=== PATIENT | female | born 1955 | race Caucasian/White ===

== ENCOUNTER 2021-02-02 18:10 | Inpatient (IN) | payer MEDICARE, OTHER ==
[2021-02-02] MEDS ORDERED: SODIUM CHLORIDE 0.9% 500 ML 500 ML IV ONE ×3 (18:52→21:52)
[2021-02-02] MEDS ORDERED: HYDROmorphone 0.5 MG/0.5 ML SYRINGE IVP STA (18:52)
--- NOTE | 2021-02-02 18:53 | ED ---
General Adult HPI - General Chief complaint: Skin/Abscess/Foreign Body Stated complaint: blistering rashes Time Seen by Provider: 02/02/21 18:38 Source: patient, EMS, RN notes reviewed, old records reviewed Mode of arrival: EMS Limitations: no limitations - History of Present Illness Initial comments: 65-year-old female presenting with multiple complaints, rash, hand and feet swelling, nausea vomiting and abdominal pain. Symptoms have been present for approximately one week. Patient recently moved to this area. She states that about one week ago she noticed red sensation of her hands and ankles that was similar to sunburn this has worsened, began to blister. She denies fever. She has had some chills. Additionally she's had abdominal distention and vomiting for approximately one week. - Related Data Allergies Allergy/AdvReac Type Severity Reaction Status Date / Time Penicillins Allergy Unknown Verified 02/02/21 18:18 Childhood Review of Systems ROS Statement: Those systems with pertinent positive or pertinent negative responses have been documented in the HPI. ROS Other: All systems not noted in ROS Statement are negative. Past Medical History Past Medical History: No Reported History, Myocardial Infarction ([place]) Additional Past Medical History / Comment(s): heart murmur History of Any Multi-Drug Resistant Organisms: None Reported Past Surgical History: Appendectomy Past Psychological History: Anxiety, Depression Smoking Status: Current every day smoker Past Alcohol Use History: Occasional Past Drug Use History: None Reported General Exam Limitations: no limitations General appearance: alert, in distress Head exam: Present: atraumatic, normocephalic Eye exam: Present: normal appearance, PERRL ENT exam: Present: mucous membranes dry Neck exam: Present: normal inspection. Absent: tenderness, meningismus Respiratory exam: Present: normal lung sounds bilaterally. Absent: respiratory distress Cardiovascular Exam: Present: normal rhythm, tachycardia GI/Abdominal exam: Present: distended, tenderness Extremities exam: Present: normal capillary refill Neurological exam: Present: alert. Absent: motor sensory deficit Psychiatric exam: Present: anxious Skin exam: Present: rash (Excoriation under her bilateral breasts, shows an erythematous blistering rash to her hands and both ankles. There appears to be secondary infection with some erythema and purulent drainage.), erythema Course Vital Signs 02/02/21 18:12 Temperature 98.9 F Pulse Rate 116 H Respiratory 18 Rate Blood Pressure 108/87 O2 Sat by Pulse 98 Oximetry EKG Findings - EKG Comments: EKG Findings:: Sinus tachycardia, left atrial enlargement, T-wave inversion in the precordial leads, no ST segment elevation, rate of 109, GA interval 152, QRS duration 84, QTC 484, no old for comparison. Medical Decision Making - Medical Decision Making 65-year-old female presenting with multiple issues, skin rash, erythematous blistering rash with large bulla over her ankles with secondary infection is also present in her hands. Additionally she has complained of abdominal pain nausea vomiting with abdominal distention and pain. CT is performed which shows a choledocholithiasis as well as a cholecystitis. Ultrasound has been ordered and results are pending. She has a mild transaminitis and an bilirubin of 1.4. I did discuss case both with the admitting physician Dr. Horton and with Dr. Grey covering for general surgery. Additionally gastroenterology will be placed on consult. She will be placed on IV antibiotics to cover both abdominal and skin soft tissue infection. - Lab Data Result diagrams: 02/02/21 18:50 02/02/21 18:50 Lab Results 02/02/21 02/02/21 02/02/21 Range/Units 18:50 18:50 18:50 WBC 7.4 (3.8-10.6) k/uL RBC 3.28 L (3.80-5.40) m/uL Hgb 13.3 (11.4-16.0) gm/dL Hct 38.8 (34.0-46.0) % MCV 118.2 H (80.0-100.0) fL MCH 40.7 H (25.0-35.0) pg MCHC 34.4 (31.0-37.0) g/dL RDW 13.4 (11.5-15.5) % Plt Count 187 (150-450) k/uL MPV 7.4 Neutrophils % 60 % Lymphocytes % 25 % Monocytes % 12 % Eosinophils % 1 % Basophils % 0 % Neutrophils # 4.4 (1.3-7.7) k/uL Lymphocytes # 1.8 (1.0-4.8) k/uL Monocytes # 0.9 (0-1.0) k/uL Eosinophils # 0.1 (0-0.7) k/uL Basophils # 0.0 (0-0.2) k/uL Manual Slide Review Performed Macrocytosis Marked A PT 11.1 (9.0-12.0) sec INR 1.0 (<1.2) APTT 22.2 (22.0-30.0) sec Sodium 129 L (137-145) mmol/L Potassium 3.7 (3.5-5.1) mmol/L Chloride 95 L (98-107) mmol/L Carbon Dioxide 21 L (22-30) mmol/L Anion Gap 13 mmol/L BUN 9 (7-17) mg/dL Creatinine 0.52 (0.52-1.04) mg/dL Est GFR (CKD-EPI)AfAm >90 (>60 ml/min/1.73 sqM) Est GFR (CKD-EPI)NonAf >90 (>60 ml/min/1.73 sqM) Glucose 95 (74-99) mg/dL Calcium 8.1 L (8.4-10.2) mg/dL Phosphorus 2.8 (2.5-4.5) mg/dL Magnesium 1.9 (1.6-2.3) mg/dL Total Bilirubin 1.4 H (0.2-1.3) mg/dL AST 164 H (14-36) U/L ALT 59 H (4-34) U/L Alkaline Phosphatase 68 (38-126) U/L Troponin I (0.000-0.034) ng/mL Total Protein 6.2 L (6.3-8.2) g/dL Albumin 3.2 L (3.5-5.0) g/dL 02/02/21 Range/Units 18:50 WBC (3.8-10.6) k/uL RBC (3.80-5.40) m/uL Hgb (11.4-16.0) gm/dL Hct (34.0-46.0) % MCV (80.0-100.0) fL MCH (25.0-35.0) pg MCHC (31.0-37.0) g/dL RDW (11.5-15.5) % Plt Count (150-450) k/uL MPV Neutrophils % % Lymphocytes % % Monocytes % % Eosinophils % % Basophils % % Neutrophils # (1.3-7.7) k/uL Lymphocytes # (1.0-4.8) k/uL Monocytes # (0-1.0) k/uL Eosinophils # (0-0.7) k/uL Basophils # (0-0.2) k/uL Manual Slide Review Macrocytosis PT (9.0-12.0) sec INR (<1.2) APTT (22.0-30.0) sec Sodium (137-145) mmol/L Potassium (3.5-5.1) mmol/L Chloride (98-107) mmol/L Carbon Dioxide (22-30) mmol/L Anion Gap mmol/L BUN (7-17) mg/dL Creatinine (0.52-1.04) mg/dL Est GFR (CKD-EPI)AfAm (>60 ml/min/1.73 sqM) Est GFR (CKD-EPI)NonAf (>60 ml/min/1.73 sqM) Glucose (74-99) mg/dL Calcium (8.4-10.2) mg/dL Phosphorus (2.5-4.5) mg/dL Magnesium (1.6-2.3) mg/dL Total Bilirubin (0.2-1.3) mg/dL AST (14-36) U/L ALT (4-34) U/L Alkaline Phosphatase (38-126) U/L Troponin I <0.012 (0.000-0.034) ng/mL Total Protein (6.3-8.2) g/dL Albumin (3.5-5.0) g/dL Disposition Clinical Impression: Serous bulla of skin, Choledocholithiasis, Cholecystitis Disposition: ADMITTED IP TO THIS [facility] Condition: Stable Is patient prescribed a controlled substance at d/c from ED?: No Referrals: None,Stated [Primary Care Provider] - 1-2 days Decision to Admit Reason: Admit from EC Decision Date: 02/02/21 Decision Time: 20:38
[2021-02-02] MEDS ORDERED: ONDANSETRON 4 MG/2 ML VIAL IVP STA (18:55)
[2021-02-02 19:06] LABS: Basophils % (A) 0 %; Eosinophils # (A) 0.1 k/uL (0-0.7); Eosinophils % (A) 1 %; HCT 38.8 % (34.0-46.0); HGB 13.3 gm/dL (11.4-16.0); Lymphocytes # (A) 1.8 k/uL (1.0-4.8); Lymphocytes % (A) 25 %; MCH 40.7 pg (25.0-35.0); MCHC 34.4 g/dL (31.0-37.0); MCV 118.2 fL (80.0-100.0); Macrocytosis Marked; Mean Platelet Volume 7.4; Monocytes # (A) 0.9 k/uL (0-1.0); Monocytes % (A) 12 %; Neutrophils # (A) 4.4 k/uL (1.3-7.7); Neutrophils % (A) 60 %; Platelet Count 187 k/uL (150-450); RBC 3.28 m/uL (3.80-5.40); RDW 13.4 % (11.5-15.5); WBC 7.4 k/uL (3.8-10.6)
[2021-02-02 19:07] LABS: ALT 59 U/L (4-34); AST 164 U/L (14-36); African American GFR (CKD) >90 (>60 ml/min/1.73 sqM); Albumin 3.2 g/dL (3.5-5.0); Alkaline Phosphatase 68 U/L (38-126); Anion Gap 13 mmol/L; Blood Urea Nitrogen 9 mg/dL (7-17); Calcium 8.1 mg/dL (8.4-10.2); Carbon Dioxide 21 mmol/L (22-30); Chloride 95 mmol/L (98-107); Glucose 95 mg/dL (74-99); Magnesium 1.9 mg/dL (1.6-2.3); Non-African American GFR(CKD) >90 (>60 ml/min/1.73 sqM); Phosphorus 2.8 mg/dL (2.5-4.5); Potassium 3.7 mmol/L (3.5-5.1); Sodium 129 mmol/L (137-145); Total Bilirubin 1.4 mg/dL (0.2-1.3); Total Protein 6.2 g/dL (6.3-8.2)
[2021-02-02 19:09] LABS: Partial Thromboplastin Time 22.2 sec (22.0-30.0); Prothrombin Time 11.1 sec (9.0-12.0)
--- NOTE | 2021-02-02 20:09 | CT ---
EXAMINATION TYPE: CT abdomen pelvis wo con DATE OF EXAM: 02/02/2021 COMPARISON: HISTORY: Abdominal pain, diarrhea, and nausea. CT DLP: 477.7 mGycm Automated exposure control for dose reduction was used. TECHNIQUE: Helical acquisition of images from the lung bases through the pelvis. FINDINGS: Metallic density present at the level of the mitral annulus, there are coronary artery calc ifications. Lack of contrast may compromise sensitivity. Surgical lit present along the midline i nferior to the umbilicus at the level of the abdominal wall LUNG BASES: No significant abnormality is appreciated. AORTA: No significant abnormality is appreciated. LIVER/GB: Left lobe is somewhat atrophic, low-attenuation is greater in the left lobe than in the rig ht lobe but findings are likely indicative of underlying hepatic steatosis. At the level of the dista l common bile duct there is a density present, sagittal image #68 measuring approximately 9 mm x 15 m m on coronal image #40. Gallstone is also noted in the gallbladder PANCREAS: No significant abnormality is seen. SPLEEN: No significant abnormality is seen. ADRENALS: No significant abnormality is seen. KIDNEYS: No significant abnormality is seen. REPRODUCTIVE ORGANS: No significant abnormality is seen. URINARY BLADDER: No significant abnormality is seen. BOWEL: No significant abnormality is seen. FREE AIR: No Free Air is visible. ASCITES: None visible. PELVIC ADENOPATHY: None visualized. RETROPERITONEAL ADENOPATHY: No Retroperitoneal Adenopathy visible. OSSEOUS STRUCTURES: There is a marked scoliosis. Degenerative disc changes and facet arthropathy is p resent. IMPRESSION: CHOLEDOCHOLITHIASIS, CHOLECYSTITIS AND ADDITIONAL FINDINGS ABOVE.
--- NOTE | 2021-02-02 20:10 | XR ---
EXAMINATION TYPE: XR chest 2V DATE OF EXAM: 02/02/2021 COMPARISON: NONE HISTORY: Chest pain TECHNIQUE: Frontal and lateral views of the chest are obtained. FINDINGS: There is no focal air space opacity, pleural effusion, or pneumothorax seen. The cardiac silhouette size is within normal limits. There are overlying cardiac leads. Aorta is dense and possib ly ectatic, patient is rotated, but right hemidiaphragm is elevated. The osseous structures are inta ct. IMPRESSION: No acute cardiopulmonary process. Additional findings above.
[2021-02-02] MEDS ORDERED: LORazepam 2 MG/ML INJ IV STA (20:14)
[2021-02-02] MEDS ORDERED: cefTRIAXone IN SWFI 1,000 MG/10 ML SYRINGE IVP STA (20:29)
[2021-02-02] MEDS ORDERED: metroNIDAZOLE-NS PMX 500 MG in SALINE 1 100ML.BAG IVPB STA (20:29)
[2021-02-02] MEDS ORDERED: NALOXONE 0.4 MG/ML 1 ML VIAL IV PRN (20:30)
[2021-02-02] MEDS ORDERED: VANCOMYCIN IV PER PHARMACY 1 EACH MISC MISCELLANE PRN (20:36)
[2021-02-02] MEDS: cefTRIAXone IN SWFI 1,000 MG/10 ML SYRINGE IVP SCH (21:01)
--- NOTE | 2021-02-02 21:03 | US ---
EXAMINATION TYPE: US gallbladder DATE OF EXAM: 02/02/2021 COMPARISON: CLINICAL HISTORY: ab pain. Generalized pain. EXAM MEASUREMENTS: Liver Length: 14.8 cm Gallbladder Wall: 0.3 cm Right Kidney: 10.6 x 4.9 x 5.9 cm Extremely limited exam due to overlying bowel gas. Patient also had rash on abdomen which limited scanning areas due to pain from rash Pancreas: Obscured by bowel gas Liver: Limited due to bowel gas. Scanned through limited windows between ribs. Parts of liver appe ars heterogenous and coarse with difficulty in penetration. Gallbladder: Echogenic focus seen- 1.1 cm Evidence for sonographic Pretty's sign: neg CBD: Obscured by overlying bowel gas Right Kidney: limited visualization, portions seen appear wnl IMPRESSION: There is echogenic focus at the gallbladder neck suspicious for a gallstone. No significant gallbladd er wall thickening. No dilated ducts. Common bile duct not well seen. Intrahepatic bile ducts are not dilated. Exam limited by bowel gas.
[2021-02-02] MEDS ORDERED: VANCOMYCIN 1,000 MG in SODIUM CHLORIDE 0.9% 250 ML IVPB ONE (21:30)
[2021-02-02] MEDS: HYDROmorphone 0.5 MG/0.5 ML SYRINGE IVP PRN (21:55)
[2021-02-03] MEDS: 0.9% NACL WITH KCL 20 MEQ/L 1,000 ML with MVI, ADULT NO.4 WITH VIT K 10 ML, THIAMINE 10... IV SCH ×8 (01:23→21:20)
[2021-02-03] MEDS: HYDROmorphone 0.5 MG/0.5 ML SYRINGE IVP PRN ×5 (01:36→18:23)
[2021-02-03] MEDS: ONDANSETRON 4 MG/2 ML VIAL IVP PRN ×2 (04:40→10:08)
[2021-02-03 04:53] LABS: HCT 40.1 % (34.0-46.0); HGB 12.9 gm/dL (11.4-16.0); MCH 39.1 pg (25.0-35.0); MCHC 32.2 g/dL (31.0-37.0); MCV 121.4 fL (80.0-100.0); Macrocytosis Marked; Mean Platelet Volume 7.8; Platelet Count 149 k/uL (150-450); RBC 3.31 m/uL (3.80-5.40); RDW 13.5 % (11.5-15.5)
[2021-02-03 05:01] LABS: INR 1.1 (<1.2); Prothrombin Time 11.3 sec (9.0-12.0)
[2021-02-03 05:38] LABS: ALT 55 U/L (4-34); AST 154 U/L (14-36); African American GFR (CKD) >90 (>60 ml/min/1.73 sqM); Albumin 2.9 g/dL (3.5-5.0); Alkaline Phosphatase 44 U/L (38-126); Amylase 51 U/L (30-110); Anion Gap 6 mmol/L; Blood Urea Nitrogen 11 mg/dL (7-17); Calcium 7.5 mg/dL (8.4-10.2); Carbon Dioxide 22 mmol/L (22-30); Chloride 101 mmol/L (98-107); Glucose 80 mg/dL (74-99); Lipase 133 U/L (23-300); Non-African American GFR(CKD) >90 (>60 ml/min/1.73 sqM); Potassium 4.6 mmol/L (3.5-5.1); Sodium 129 mmol/L (137-145); Total Bilirubin 1.6 mg/dL (0.2-1.3)
[2021-02-03 08:02] LABS: Band Neutrophils % 4 %; Lymphocytes # (M) 1.68 k/uL (1.0-4.8); Monocytes # (M) 0.29 k/uL (0-1.0); Neutrophils % (M) 70 %; Nucleated Red Blood Cells 4 /100 WBC (0-0); Total Cells Counted 200; WBC 7.3 k/uL (3.8-10.6)
[2021-02-03 08:03] LABS: Anisocytosis (M) Present; Polychromasia Present; Target Cells Present
[2021-02-03 10:09] LABS: Amorphous Sediment,Urine Occasional /hpf; Appearance,Urine Cloudy (Clear); Bacteria,Urine Rare /hpf; Bilirubin,Urine 1+ (Negative); Blood,Urine Moderate (Negative); Color,Urine Dark Brown; Glucose,Urine (UA) Negative (Negative); Hyaline Casts,Urine 3 /lpf (0-2); Ketones,Urine Trace (Negative); Leukocyte Esterase,Urine Large (Negative); Mucus,Urine Rare /hpf; Nitrite,Urine Negative (Negative); Protein,Urine 1+ (Negative); RBC,Urine 30 /hpf (0-5); Specific Gravity,Urine 1.023 (1.001-1.035); Squamous Epithelial Cell,Urine 5 /hpf (0-4); WBC,Urine 62 /hpf (0-5)
--- NOTE | 2021-02-03 12:34 | P.GSCN ---
History of Present Illness Consult date: 02/03/21 History of present illness: The patient presented to the ED with multiple complaints. She hasn't felt well the last 1-2 weeks. Has a riash develop on her hands and ankles, the rash on her ankles began draining yesterday. Also complaining of nausea and "unable to keep anything down". Complains of some pain in the mid abdomen radiating to LLQ. No fever, chills, jaundice, acholic stool or tea colored urine. Hasn't taken any prescription or OTC medications. No history of ulcer disease. No prior similar episodes. The patient feels very anxious and is tired of feeling bad. No prior episodes. Says she has increased her smoking to 1 ppd due to "stress". Review of Systems All systems: negative - Constitutional Reports as per HPI Past Medical History Past Medical History: No Reported History, Myocardial Infarction ([place]) Additional Past Medical History / Comment(s): heart murmur History of Any Multi-Drug Resistant Organisms: None Reported Past Surgical History: Appendectomy Past Psychological History: Anxiety, Depression Smoking Status: Current every day smoker Past Alcohol Use History: Occasional Past Drug Use History: None Reported Medications and Allergies Home Medications Medication Instructions Recorded Confirmed Type No Known Home Medications 02/02/21 02/02/21 History Allergies Allergy/AdvReac Type Severity Reaction Status Date / Time Penicillins Allergy Unknown Verified 02/02/21 21:01 Childhood Surgical - Exam Osteopathic Statement: *. No significant issues noted on an osteopathic structural exam other than those noted in the History and Physical/Consult. Vital Signs Temp Pulse Resp BP Pulse Ox 98.9 F 116 H 18 108/87 98 02/02/21 18:12 02/02/21 18:12 02/02/21 18:12 02/02/21 18:12 02/02/21 18:12 - General appears uncomfortable - Eyes normal ocular movement - Respiratory normal respiratory effort, clear to auscultation (somewhat diminished bilaterally) - Cardiovascular tachycardic Rhythm: regular - Abdomen Abdomen: tender (epigastric and llq), bowel sounds, surgical scars (lower midline), no rebound, distended (softly distended) - Integumentary dark red to brown discoloration bilateral hands and wrist. Bilateral discoloration of the ankles with skin breakdown Results - Labs 02/03/21 03:51 02/03/21 03:51 Abnormal Lab Results - Last 24 Hours (Table) 02/02/21 02/02/21 02/02/21 Range/Units 09:54 18:50 18:50 RBC 3.28 L (3.80-5.40) m/uL MCV 118.2 H (80.0-100.0) fL MCH 40.7 H (25.0-35.0) pg Plt Count (150-450) k/uL Nucleated RBCs (0-0) /100 WBC Macrocytosis Marked A Sodium 129 L (137-145) mmol/L Chloride 95 L (98-107) mmol/L Carbon Dioxide 21 L (22-30) mmol/L Creatinine (0.52-1.04) mg/dL Plasma Lactic Acid Tyrese (0.7-2.0) mmol/L Calcium 8.1 L (8.4-10.2) mg/dL Total Bilirubin 1.4 H (0.2-1.3) mg/dL AST 164 H (14-36) U/L ALT 59 H (4-34) U/L Total Protein 6.2 L (6.3-8.2) g/dL Albumin 3.2 L (3.5-5.0) g/dL Urine Appearance Cloudy H (Clear) Urine Protein 1+ H (Negative) Urine Ketones Trace H (Negative) Urine Blood Moderate H (Negative) Urine Bilirubin 1+ H (Negative) Ur Leukocyte Esterase Large H (Negative) Urine RBC 30 H (0-5) /hpf Urine WBC 62 H (0-5) /hpf Ur Squamous Epith Cells 5 H (0-4) /hpf Amorphous Sediment Occasional H (None) /hpf Urine Bacteria Rare H (None) /hpf Hyaline Casts 3 H (0-2) /lpf Urine Mucus Rare H (None) /hpf 02/02/21 02/02/21 02/03/21 Range/Units 18:50 23:34 03:51 RBC 3.31 L (3.80-5.40) m/uL MCV 121.4 H (80.0-100.0) fL MCH 39.1 H (25.0-35.0) pg Plt Count 149 L (150-450) k/uL Nucleated RBCs 4 H (0-0) /100 WBC Macrocytosis Marked A Sodium (137-145) mmol/L Chloride (98-107) mmol/L Carbon Dioxide (22-30) mmol/L Creatinine (0.52-1.04) mg/dL Plasma Lactic Acid Tyrese 4.5 H* 2.3 H* (0.7-2.0) mmol/L Calcium (8.4-10.2) mg/dL Total Bilirubin (0.2-1.3) mg/dL AST (14-36) U/L ALT (4-34) U/L Total Protein (6.3-8.2) g/dL Albumin (3.5-5.0) g/dL Urine Appearance (Clear) Urine Protein (Negative) Urine Ketones (Negative) Urine Blood (Negative) Urine Bilirubin (Negative) Ur Leukocyte Esterase (Negative) Urine RBC (0-5) /hpf Urine WBC (0-5) /hpf Ur Squamous Epith Cells (0-4) /hpf Amorphous Sediment (None) /hpf Urine Bacteria (None) /hpf Hyaline Casts (0-2) /lpf Urine Mucus (None) /hpf // Range/Units 03:51 RBC (3.80-5.40) m/uL MCV (80.0-100.0) fL MCH (25.0-35.0) pg Plt Count (150-450) k/uL Nucleated RBCs (0-0) /100 WBC Macrocytosis Sodium 129 L (137-145) mmol/L Chloride (98-107) mmol/L Carbon Dioxide (22-30) mmol/L Creatinine 0.45 L (0.52-1.04) mg/dL Plasma Lactic Acid Tyrese (0.7-2.0) mmol/L Calcium 7.5 L (8.4-10.2) mg/dL Total Bilirubin 1.6 H (0.2-1.3) mg/dL AST 154 H (14-36) U/L ALT 55 H (4-34) U/L Total Protein 6.0 L (6.3-8.2) g/dL Albumin 2.9 L (3.5-5.0) g/dL Urine Appearance (Clear) Urine Protein (Negative) Urine Ketones (Negative) Urine Blood (Negative) Urine Bilirubin (Negative) Ur Leukocyte Esterase (Negative) Urine RBC (0-5) /hpf Urine WBC (0-5) /hpf Ur Squamous Epith Cells (0-4) /hpf Amorphous Sediment (None) /hpf Urine Bacteria (None) /hpf Hyaline Casts (0-2) /lpf Urine Mucus (None) /hpf Diabetes panel 02/02/21 02/03/21 Range/Units 18:50 03:51 Sodium 129 L 129 L (137-145) mmol/L Potassium 3.7 4.6 (3.5-5.1) mmol/L Chloride 95 L 101 (98-107) mmol/L Carbon Dioxide 21 L 22 (22-30) mmol/L BUN 9 11 (7-17) mg/dL Creatinine 0.52 0.45 L (0.52-1.04) mg/dL Glucose 95 80 (74-99) mg/dL Calcium 8.1 L 7.5 L (8.4-10.2) mg/dL AST 164 H 154 H (14-36) U/L ALT 59 H 55 H (4-34) U/L Alkaline Phosphatase 68 44 (38-126) U/L Total Protein 6.2 L 6.0 L (6.3-8.2) g/dL Albumin 3.2 L 2.9 L (3.5-5.0) g/dL Calcium panel 02/02/21 02/03/21 Range/Units 18:50 03:51 Calcium 8.1 L 7.5 L (8.4-10.2) mg/dL Phosphorus 2.8 (2.5-4.5) mg/dL Albumin 3.2 L 2.9 L (3.5-5.0) g/dL Pituitary panel 02/02/21 02/03/21 Range/Units 18:50 03:51 Sodium 129 L 129 L (137-145) mmol/L Potassium 3.7 4.6 (3.5-5.1) mmol/L Chloride 95 L 101 (98-107) mmol/L Carbon Dioxide 21 L 22 (22-30) mmol/L BUN 9 11 (7-17) mg/dL Creatinine 0.52 0.45 L (0.52-1.04) mg/dL Glucose 95 80 (74-99) mg/dL Calcium 8.1 L 7.5 L (8.4-10.2) mg/dL Adrenal panel 02/02/21 02/03/21 Range/Units 18:50 03:51 Sodium 129 L 129 L (137-145) mmol/L Potassium 3.7 4.6 (3.5-5.1) mmol/L Chloride 95 L 101 (98-107) mmol/L Carbon Dioxide 21 L 22 (22-30) mmol/L BUN 9 11 (7-17) mg/dL Creatinine 0.52 0.45 L (0.52-1.04) mg/dL Glucose 95 80 (74-99) mg/dL Calcium 8.1 L 7.5 L (8.4-10.2) mg/dL Total Bilirubin 1.4 H 1.6 H (0.2-1.3) mg/dL AST 164 H 154 H (14-36) U/L ALT 59 H 55 H (4-34) U/L Alkaline Phosphatase 68 44 (38-126) U/L Total Protein 6.2 L 6.0 L (6.3-8.2) g/dL Albumin 3.2 L 2.9 L (3.5-5.0) g/dL - Imaging CT scan - abdomen: report reviewed US - abdomen: report reviewed Assessment and Plan (1) Tobacco abuse Current Visit: Yes Status: Acute Code(s): Z72.0 - TOBACCO USE SNOMED Code(s): 519670074 (2) Choledocholithiasis Current Visit: Yes Status: Acute Code(s): K80.50 - CALCULUS OF BILE DUCT W/O CHOLANGITIS OR CHOLECYST W/O OBST SNOMED Code(s): 877931969 (3) Hyponatremia Current Visit: Yes Status: Acute Code(s): E87.1 - HYPO-OSMOLALITY AND HYPONATREMIA SNOMED Code(s): 53471326 (4) Cellulitis Current Visit: Yes Status: Acute Code(s): L03.90 - CELLULITIS, UNSPECIFIED SNOMED Code(s): 662435632 Plan: The patient has multiple issues. There is choledocholithiasis seen on CT scan. Await GI consultation. IV antibiotics for the cellulitis on the ankles. Correct hyponatremia. Getting thiamine and MVI for concerns of alcohol abuse. DVT and ulcer prophylaxis. Will likely need laparoscopic cholecystectomy. Will follow with you
--- NOTE | 2021-02-03 13:16 | P.CONS ---
History of Present Illness - Reason for Consult Consult date: 02/03/21 Choledocholithiasis Requesting physician: Geovani Horton - Chief Complaint Rash, ulcers, abdominal pain - History of Present Illness 65-year-old female with medical history significant for tobacco abuse who presented for a constellation of symptoms including rash of her hands and feet, nausea and vomiting and abdominal pain. Patient reports that the symptoms of present for the past few weeks. She denies any inciting factors such as new medications, unusual foods or travel. The patient reports pain diffusely across her abdomen and in the right upper quadrant of her abdomen. The pain is severe and intensive nature. No prior episodes of similar pain.. She reports multiple episodes of nausea and vomiting and difficulty tolerating foods. She has ulcers on her lower extremities bilaterally and associated rash as well as on her hands. Laboratory evaluation on presentation significant for WBC 7.3, hemoglobin 12.9, platelet count 149,000 with total bilirubin 1.6, alkaline phosphatase 44, AST 159 and ALT 55. Imaging performed in evaluation with ultrasound showing a gallbladder neck stone with no ductal dilation. However, computed tomography scan of the abdomen performed in evaluation did show cholecystitis and a stone in the distal CBD. Review of Systems REVIEW OF SYSTEMS: CONSTITUTIONAL: Denies any fevers, chills, weight change or fatigue. CARDIOVASCULAR: Denies any chest pain, palpitations high or low blood pressures RESPIRATORY: Denies any shortness of breath, hemoptysis or cough. GENITOURINARY: No dysuria or hematuria. MUSCULOSKELETAL: No weakness reported. SKIN: Denies any jaundice or pallor, but she describes a sunburn rash on her hands and lower extremities with ulceration. PSYCHIATRIC: Denies any history of depression or anxiety but reports that she has been feeling depressed and anxious due to Covid 19 but denies any suicidal or homicidal ideation. NEUROLOGY: Denies headache, denies any new focal deficits. EARS/NOSE/THROAT: No recent hearing change, congestion, nasal discharge or sore throat. EYES: No pain in eyes, discharge or change in vision. GASTROINTESTINAL: As per HPI. Past Medical History Past Medical History: No Reported History, Myocardial Infarction ([place]) Additional Past Medical History / Comment(s): heart murmur History of Any Multi-Drug Resistant Organisms: None Reported Past Surgical History: Appendectomy Past Psychological History: Anxiety, Depression Smoking Status: Current every day smoker Past Alcohol Use History: Occasional Past Drug Use History: None Reported Additional History: Family history: Reviewed with the patient noncontributory to current medical presentation. Medications and Allergies Home Medications Medication Instructions Recorded Confirmed Type No Known Home Medications 02/02/21 02/02/21 History Allergies Allergy/AdvReac Type Severity Reaction Status Date / Time Penicillins Allergy Unknown Verified 02/02/21 21:01 Childhood Physical Exam Vitals: Vital Signs Temp Pulse Resp BP Pulse Ox 02/03/21 10:13 115 H 17 133/70 98 02/03/21 06:34 98.4 F 112 H 18 113/77 98 02/03/21 02:00 110 H 18 147/93 100 02/02/21 22:48 110 H 18 97 02/02/21 20:53 110 H 18 133/78 98 02/02/21 18:12 98.9 F 116 H 18 108/87 98 Intake and Output 02/02/21 02/03/21 02/03/21 22:59 06:59 14:59 Other: Weight 54.431 kg On physical examination, patient appears comfortable in no apparent distress. HEAD: Normocephalic, atraumatic. EYES: No scleral icterus. No conjunctival injection. MOUTH: No lesions, tongue midline. NECK: Trachea midline, no gross abnormalities. CHEST: Decreased air entry in all lung nagel. HEART: Regular rate and rhythm. ABDOMEN: Soft, diffusely mildly tender to palpation. Bowel sounds are positive. No organomegaly. No guarding or rigidity. EXTREMITIES: No pedal edema. SKIN: No jaundice but patient has bilateral erythematous rash on her hands and feet with ulceration on her left lower extremity. NEUROLOGIC: Alert and oriented x3. No focal deficits. Results CBC & Chem 7: 02/03/21 03:51 02/03/21 03:51 Labs: Abnormal Lab Results - Last 24 Hours (Table) 02/02/21 02/02/21 02/02/21 Range/Units 09:54 18:50 18:50 RBC 3.28 L (3.80-5.40) m/uL MCV 118.2 H (80.0-100.0) fL MCH 40.7 H (25.0-35.0) pg Plt Count (150-450) k/uL Nucleated RBCs (0-0) /100 WBC Macrocytosis Marked A Sodium 129 L (137-145) mmol/L Chloride 95 L (98-107) mmol/L Carbon Dioxide 21 L (22-30) mmol/L Creatinine (0.52-1.04) mg/dL Plasma Lactic Acid Tyrese (0.7-2.0) mmol/L Calcium 8.1 L (8.4-10.2) mg/dL Total Bilirubin 1.4 H (0.2-1.3) mg/dL AST 164 H (14-36) U/L ALT 59 H (4-34) U/L Total Protein 6.2 L (6.3-8.2) g/dL Albumin 3.2 L (3.5-5.0) g/dL Urine Appearance Cloudy H (Clear) Urine Protein 1+ H (Negative) Urine Ketones Trace H (Negative) Urine Blood Moderate H (Negative) Urine Bilirubin 1+ H (Negative) Ur Leukocyte Esterase Large H (Negative) Urine RBC 30 H (0-5) /hpf Urine WBC 62 H (0-5) /hpf Ur Squamous Epith Cells 5 H (0-4) /hpf Amorphous Sediment Occasional H (None) /hpf Urine Bacteria Rare H (None) /hpf Hyaline Casts 3 H (0-2) /lpf Urine Mucus Rare H (None) /hpf 02/02/21 02/02/21 02/03/21 Range/Units 18:50 23:34 03:51 RBC 3.31 L (3.80-5.40) m/uL MCV 121.4 H (80.0-100.0) fL MCH 39.1 H (25.0-35.0) pg Plt Count 149 L (150-450) k/uL Nucleated RBCs 4 H (0-0) /100 WBC Macrocytosis Marked A Sodium (137-145) mmol/L Chloride (98-107) mmol/L Carbon Dioxide (22-30) mmol/L Creatinine (0.52-1.04) mg/dL Plasma Lactic Acid Tyrese 4.5 H* 2.3 H* (0.7-2.0) mmol/L Calcium (8.4-10.2) mg/dL Total Bilirubin (0.2-1.3) mg/dL AST (14-36) U/L ALT (4-34) U/L Total Protein (6.3-8.2) g/dL Albumin (3.5-5.0) g/dL Urine Appearance (Clear) Urine Protein (Negative) Urine Ketones (Negative) Urine Blood (Negative) Urine Bilirubin (Negative) Ur Leukocyte Esterase (Negative) Urine RBC (0-5) /hpf Urine WBC (0-5) /hpf Ur Squamous Epith Cells (0-4) /hpf Amorphous Sediment (None) /hpf Urine Bacteria (None) /hpf Hyaline Casts (0-2) /lpf Urine Mucus (None) /hpf 02/03/21 Range/Units 03:51 RBC (3.80-5.40) m/uL MCV (80.0-100.0) fL MCH (25.0-35.0) pg Plt Count (150-450) k/uL Nucleated RBCs (0-0) /100 WBC Macrocytosis Sodium 129 L (137-145) mmol/L Chloride (98-107) mmol/L Carbon Dioxide (22-30) mmol/L Creatinine 0.45 L (0.52-1.04) mg/dL Plasma Lactic Acid Tyrese (0.7-2.0) mmol/L Calcium 7.5 L (8.4-10.2) mg/dL Total Bilirubin 1.6 H (0.2-1.3) mg/dL AST 154 H (14-36) U/L ALT 55 H (4-34) U/L Total Protein 6.0 L (6.3-8.2) g/dL Albumin 2.9 L (3.5-5.0) g/dL Urine Appearance (Clear) Urine Protein (Negative) Urine Ketones (Negative) Urine Blood (Negative) Urine Bilirubin (Negative) Ur Leukocyte Esterase (Negative) Urine RBC (0-5) /hpf Urine WBC (0-5) /hpf Ur Squamous Epith Cells (0-4) /hpf Amorphous Sediment (None) /hpf Urine Bacteria (None) /hpf Hyaline Casts (0-2) /lpf Urine Mucus (None) /hpf CT scan - abdomen: report reviewed (computed tomography scan of the abdomen performed in evaluation did show cholecystitis and a stone in the distal CBD.) Assessment and Plan (1) Choledocholithiasis Narrative/Plan: 65-year-old female with multiple complaints on presentation including rash, abdominal pain and nausea and vomiting. Patient found to have elevation in her total bilirubin of 1.6 on presentation with alkaline phosphatase 44, AST 159 and ALT 55. Imaging performed in evaluation was significant for cholecystitis and gallbladder neck stone as well as evidence of a distal CBD stone on computed tomography scan of the abdomen. Currently on antibiotic therapy. She denies any history of problems with cholelithiasis in the past. Current Visit: Yes Status: Acute Code(s): K80.50 - CALCULUS OF BILE DUCT W/O CHOLANGITIS OR CHOLECYST W/O OBST SNOMED Code(s): 068580944 (2) Cholecystitis Current Visit: Yes Status: Acute Code(s): K81.9 - CHOLECYSTITIS, UNSPECIFIED SNOMED Code(s): 54072488 Plan: Supportive care Okay for ice chips and sips of water Continue to monitor CBC, BMP, LFTs Surgical service has been consulted to see the patient Tentatively plan for ERCP tomorrow for findings of choledocholithiasis on computed tomography scan, with all of the risks, benefits and possible indications of the procedure described to the patient length with all of her questions answered to her satisfaction, this is pending improvement in the patient's hyponatremia [place] continue broad-spectrum antibiotic therapy Thank you for allowing us to participate in the care of the patient
[2021-02-03] MEDS: VANCOMYCIN 1,000 MG in SODIUM CHLORIDE 0.9% 250 ML IVPB SCH (13:49)
[2021-02-03] MEDS: LORazepam 2 MG/ML INJ IV PRN ×2 (15:00→21:03)
[2021-02-03] MEDS: HYDROcodone/APAP 10-325MG 1 EACH TAB PO PRN (21:00)
[2021-02-03] MEDS: CEFEPIME 1 GM in SODIUM CHLORIDE 0.9% 50 ML IVPB SCH (21:21)
[2021-02-04] MEDS: VANCOMYCIN 1,000 MG in SODIUM CHLORIDE 0.9% 250 ML IVPB SCH ×3 (00:30→22:55)
[2021-02-04] MEDS: HYDROmorphone 0.5 MG/0.5 ML SYRINGE IVP PRN ×4 (00:32→21:21)
[2021-02-04] MEDS: 0.9% NACL WITH KCL 20 MEQ/L 1,000 ML with MVI, ADULT NO.4 WITH VIT K 10 ML, THIAMINE 10... IV SCH ×4 (06:23)
[2021-02-04] MEDS: CEFEPIME 1 GM in SODIUM CHLORIDE 0.9% 50 ML IVPB SCH ×2 (08:31→19:22)
[2021-02-04 10:53] LABS: HCT 36.9 % (34.0-46.0); MCH 41.1 pg (25.0-35.0); MCHC 32.6 g/dL (31.0-37.0); Macrocytosis Marked; Mean Platelet Volume 7.3; Platelet Count 189 k/uL (150-450); RBC 2.93 m/uL (3.80-5.40); RDW 13.6 % (11.5-15.5); WBC 6.2 k/uL (3.8-10.6)
[2021-02-04 10:54] LABS: ALT 51 U/L (4-34); African American GFR (CKD) >90 (>60 ml/min/1.73 sqM); Albumin/Globulin Ratio 0.9; Anion Gap 8 mmol/L; Blood Urea Nitrogen 16 mg/dL (7-17); Calcium 7.8 mg/dL (8.4-10.2); Carbon Dioxide 21 mmol/L (22-30); Chloride 107 mmol/L (98-107); Globulin 3.1 g/dL; Glucose 72 mg/dL (74-99); Non-African American GFR(CKD) >90 (>60 ml/min/1.73 sqM); Sodium 136 mmol/L (137-145); Total Bilirubin 1.5 mg/dL (0.2-1.3)
[2021-02-04 11:05] LABS: AST 145 U/L (14-36); Albumin 2.8 g/dL (3.5-5.0); Alkaline Phosphatase 38 U/L (38-126); Potassium 5.2 mmol/L (3.5-5.1); Total Protein 5.9 g/dL (6.3-8.2)
[2021-02-04 11:26] LABS: African American GFR (CKD) 117.7 (60.0-200.0); Albumin 3.3 g/dL (3.80-4.90); Albumin/Globulin Ratio 1.5 (1.60-3.17); Anion Gap 10.4 mmol/L (4.00-12.00); Bilirubin, Conjugated 0.8 mg/dL (0.20-0.40); Bilirubin,Unconjugated 0.4 mg/dL; Calcium 7.9 mg/dL (8.7-10.3); Carbon Dioxide 22.6 mmol/L (21.6-31.8); Globulin 2.2 g/dL (1.6-3.3); Non-African American GFR(CKD) 101.6 (60.0-200.0); Potassium 4.4 mmol/L (3.5-5.5); Total Bilirubin 1.2 mg/dL (0.3-1.2); Total Protein 5.5 g/dL (6.2-8.2)
[2021-02-04] MEDS ORDERED: INDOMETHACIN 50MG SUPPOSITORY RECTAL ONE (12:00)
--- NOTE | 2021-02-04 12:51 | P.PN ---
Progress Note - Text Progress Note Date: 02/04/21 The patient is going for ERCP today. Tentative plans for laparoscopic cholecystectomy in the next few days
--- NOTE | 2021-02-04 15:44 | P.PN ---
Subjective Progress Note Date: 02/04/21 Principal diagnosis: Choledocholithiasis The patient was seen and examined in bed. She states she still having abdominal pain and tenderness in her right upper quadrant and epigastric region. No nausea or vomiting today. Patient was scheduled for ERCP today, however needs to be rescheduled for tomorrow. Patient had no acute changes through the night, remains afebrile. Objective - Vital Signs Vital signs: Vital Signs Temp 98.7 F 02/04/21 15:10 Pulse 101 H 02/04/21 15:10 Resp 20 02/04/21 15:10 BP 117/69 02/04/21 15:10 Pulse Ox 96 02/04/21 15:10 Intake & Output 02/03/21 02/04/21 02/04/21 18:59 06:59 18:59 Intake Total 0 700 Output Total 250 Balance 0 450 Weight 54.431 kg Intake: Intake, IV Titration 700 Amount 0.9% NaCl with KCl 20 Meq 400 /l 1,000 ml @ 50 mls/hr IV .[id number] DIONI with Mvi, Adult No.4 with Vit K 10 ml with Thiamine 100 mg with Folic Acid 1 mg Rx#: [id number] Cefepime 1 gm In Sodium 50 Chloride 0.9% 50 ml @ 100 mls/hr IVPB Q12HR DIONI Rx #:[id number] Vancomycin 1,000 mg In 250 Sodium Chloride 0.9% 250 ml @ 125 mls/hr IVPB Q12H DIONI Rx#:[id number] Oral 0 Output: Urine 250 Other: # Voids 3 - Exam General appearance: The patient is alert, oriented, appears in no acute distress. HET: Head is normocephalic and atraumatic. Conjunctiva pink. Sclera anicteric. Neck: Supple without lymphadenopathy. Abdomen: Soft, right upper quadrant and epigastric tenderness, nondistended with bowel sounds. No guarding or rigidity. Extremities: Normal skin color and turgor. No pedal edema Skin: No rashes, no jaundice Neurological: No focal deficits. Alert and oriented 3. - Labs CBC & Chem 7: 02/04/21 10:31 02/04/21 10:31 Labs: Abnormal Lab Results - Last 24 Hours (Table) 02/04/21 02/04/21 02/04/21 Range/Units 06:20 06:20 10:31 RBC 2.93 L (3.80-5.40) m/uL MCV 126.0 H (80.0-100.0) fL MCH 41.1 H (25.0-35.0) pg Macrocytosis Marked A Sodium (137-145) mmol/L Potassium (3.5-5.1) mmol/L Carbon Dioxide (22-30) mmol/L Creatinine 0.5 L (0.6-1.5) mg/dL BUN/Creatinine Ratio 34.00 H (12.00-20.00) Ratio Glucose 64 L (70-110) mg/dL Calcium 7.9 L (8.7-10.3) mg/dL Total Bilirubin (0.2-1.3) mg/dL Conjugated Bilirubin 0.80 H (0.20-0.40) mg/dL AST 132 H (13-35) U/L ALT 54 H (8-44) U/L Total Protein 5.5 L (6.2-8.2) g/dL Albumin 3.30 L (3.80-4.90) g/dL Albumin/Globulin Ratio 1.50 L (1.60-3.17) g/dL Procalcitonin 0.28 H (0.02-0.09) ng/mL 02/04/21 Range/Units 10:31 RBC (3.80-5.40) m/uL MCV (80.0-100.0) fL MCH (25.0-35.0) pg Macrocytosis Sodium 136 L (137-145) mmol/L Potassium 5.2 H (3.5-5.1) mmol/L Carbon Dioxide 21 L (22-30) mmol/L Creatinine 0.45 L (0.6-1.5) mg/dL BUN/Creatinine Ratio (12.00-20.00) Ratio Glucose 72 L (70-110) mg/dL Calcium 7.8 L (8.7-10.3) mg/dL Total Bilirubin 1.5 H (0.2-1.3) mg/dL Conjugated Bilirubin (0.20-0.40) mg/dL AST 145 H (13-35) U/L ALT 51 H (8-44) U/L Total Protein 5.9 L (6.2-8.2) g/dL Albumin 2.8 L (3.80-4.90) g/dL Albumin/Globulin Ratio (1.60-3.17) g/dL Procalcitonin (0.02-0.09) ng/mL Microbiology - Last 24 Hours (Table) 02/03/21 19:15 Gram Stain - Preliminary Foot - Left Wound Culture - Preliminary 02/02/21 19:15 Blood Culture - Preliminary Blood No Growth after 24 hours 02/02/21 09:54 Urine Culture - Preliminary Urine,Voided Assessment and Plan (1) Choledocholithiasis Narrative/Plan: 65-year-old female with multiple complaints on presentation including rash, abdominal pain and nausea and vomiting. Patient found to have elevation in her total bilirubin of 1.6 on presentation with alkaline phosphatase 44, AST 159 and ALT 55. Imaging performed in evaluation was significant for cholecystitis and gallbladder neck stone as well as evidence of a distal CBD stone on computed tomography scan of the abdomen. Currently on antibiotic therapy. She denies any history of problems with cholelithiasis in the past. Current Visit: Yes Status: Acute Code(s): K80.50 - CALCULUS OF BILE DUCT W/O CHOLANGITIS OR CHOLECYST W/O OBST SNOMED Code(s): 974681952 (2) Cholecystitis Current Visit: Yes Status: Acute Code(s): K81.9 - CHOLECYSTITIS, UNSPECIFIED SNOMED Code(s): 69629082 Plan: Supportive care Clear liquid diet, nothing by mouth after midnight Continue to monitor CBC, BMP, LFTs Surgical service has been consulted to see the patient ERCP rescheduled for tomorrow for findings of choledocholithiasis on computed tomography scan, with all of the risks, benefits and possible indications of the procedure described to the patient length with all of her questions answered to her satisfaction Continue broad-spectrum antibiotic Indocin 100 mg per rectal one hour prior to ERCP Thank you for allowing us to participate in the care of the patient Dr. Houser I agree with the dictator's note, documented as a scribe by Tangela Lynn.
--- NOTE | 2021-02-04 16:19 | P.HPIM ---
History of Present Illness 65-year-old pleasant female came in with the complaints of nausea vomiting abdominal pain abdominal pain is epigastric area moderate severity associated nausea vomiting. Patient is found to have choledocholithiasis with elevated antwan er enzymes. Patient will undergo ERCP today and will need cholecystectomy later. Patient also has multiple bullae or that ruptured in bilateral lower extremities with possible surrounding cellulitis. Infectious disease was consulted for wound care and possible need of antibiotics and dermatology was consulted as well with concerns of pemphigus patient has these bullae started about a week ago patient is presently on vancomycin and cefepime Review of Systems REVIEW OF SYSTEMS: CONSTITUTIONAL: No fever, no malaise, no fatigue. HEENT: No recent visual problems or hearing problems. Denied any sore throat. CARDIOVASCULAR: No chest pain, orthopnea, PND, no palpitations, no syncope. PULMONARY: No shortness of breath, no cough, no hemoptysis. GASTROINTESTINAL: As mentioned in HPI NEUROLOGICAL: No headaches, no weakness, no numbness. HEMATOLOGICAL: Denies any bleeding or petechiae. GENITOURINARY: Denies any burning micturition, frequency, or urgency. MUSCULOSKELETAL/RHEUMATOLOGICAL: Denies any joint pain, swelling, or any muscle pain. ENDOCRINE: Denies any polyuria or polydipsia. The rest of the 14-point review of systems is negative. Past Medical History Past Medical History: No Reported History, Myocardial Infarction ([place]) Additional Past Medical History / Comment(s): heart murmur Last Myocardial Infarction Date:: unknown History of Any Multi-Drug Resistant Organisms: None Reported Past Surgical History: Appendectomy Smoking Status: Current every day smoker Medications and Allergies Home Medications Medication Instructions Recorded Confirmed Type No Known Home Medications 02/02/21 02/02/21 History Allergies Allergy/AdvReac Type Severity Reaction Status Date / Time Penicillins Allergy Unknown Verified 02/02/21 21:01 Childhood Physical Exam Vitals: Vital Signs Temp Pulse Resp BP Pulse Ox 02/04/21 15:10 98.7 F 101 H 20 117/69 96 02/04/21 10:47 99.7 F H 108 H 20 110/72 91 L 02/04/21 08:00 100 16 02/04/21 04:30 98.5 F 110 H 16 141/85 94 L 02/03/21 21:00 98.8 F 102 H 18 118/71 96 02/03/21 20:00 102 H 16 02/03/21 17:43 98.4 F 106 H 20 133/73 97 Intake and Output 02/04/21 02/04/21 02/04/21 06:59 14:59 22:59 Intake Total 700 Output Total 250 Balance 450 Intake: Intake, IV Titration 700 Amount 0.9% NaCl with KCl 20 Meq 400 /l 1,000 ml @ 50 mls/hr IV .[id number] DIONI with Mvi, Adult No.4 with Vit K 10 ml with Thiamine 100 mg with Folic Acid 1 mg Rx#: [id number] Cefepime 1 gm In Sodium 50 Chloride 0.9% 50 ml @ 100 mls/hr IVPB Q12HR DIONI Rx #:[id number] Vancomycin 1,000 mg In 250 Sodium Chloride 0.9% 250 ml @ 125 mls/hr IVPB Q12H DIONI Rx#:[id number] Output: Urine 250 Other: # Voids 3 PHYSICAL EXAMINATION: GENERAL: The patient is alert and oriented x3, not in any acute distress. Well developed, well nourished. HEENT: Pupils are round and equally reacting to light. EOMI. No scleral icterus. No conjunctival pallor. Normocephalic, atraumatic. No pharyngeal erythema. No thyromegaly. CARDIOVASCULAR: S1 and S2 present. No murmurs, rubs, or gallops. PULMONARY: Chest is clear to auscultation, no wheezing or crackles. ABDOMEN: I'll distention with epigastric abdominal tenderness might mild tenderness normoactive bowel sounds. No palpable organomegaly. MUSCULOSKELETAL: No joint swelling or deformity. EXTREMITIES: No cyanosis, clubbing, or pedal edema. NEUROLOGICAL: Gross neurological examination did not reveal any focal deficits. SKIN: The lady is a bullous lesions significant 1 and that left leg anterior/dorsal aspect of the ankle with skin breakdown redness and local is of temperature.. Results CBC & Chem 7: 02/04/21 10:31 02/04/21 10:31 Labs: Abnormal Lab Results - Last 24 Hours (Table) 02/04/21 02/04/21 02/04/21 Range/Units 06:20 06:20 10:31 RBC 2.93 L (3.80-5.40) m/uL MCV 126.0 H (80.0-100.0) fL MCH 41.1 H (25.0-35.0) pg Macrocytosis Marked A Sodium (137-145) mmol/L Potassium (3.5-5.1) mmol/L Carbon Dioxide (22-30) mmol/L Creatinine 0.5 L (0.6-1.5) mg/dL BUN/Creatinine Ratio 34.00 H (12.00-20.00) Ratio Glucose 64 L (70-110) mg/dL Calcium 7.9 L (8.7-10.3) mg/dL Total Bilirubin (0.2-1.3) mg/dL Conjugated Bilirubin 0.80 H (0.20-0.40) mg/dL AST 132 H (13-35) U/L ALT 54 H (8-44) U/L Total Protein 5.5 L (6.2-8.2) g/dL Albumin 3.30 L (3.80-4.90) g/dL Albumin/Globulin Ratio 1.50 L (1.60-3.17) g/dL Procalcitonin 0.28 H (0.02-0.09) ng/mL 02/04/21 Range/Units 10:31 RBC (3.80-5.40) m/uL MCV (80.0-100.0) fL MCH (25.0-35.0) pg Macrocytosis Sodium 136 L (137-145) mmol/L Potassium 5.2 H (3.5-5.1) mmol/L Carbon Dioxide 21 L (22-30) mmol/L Creatinine 0.45 L (0.6-1.5) mg/dL BUN/Creatinine Ratio (12.00-20.00) Ratio Glucose 72 L (70-110) mg/dL Calcium 7.8 L (8.7-10.3) mg/dL Total Bilirubin 1.5 H (0.2-1.3) mg/dL Conjugated Bilirubin (0.20-0.40) mg/dL AST 145 H (13-35) U/L ALT 51 H (8-44) U/L Total Protein 5.9 L (6.2-8.2) g/dL Albumin 2.8 L (3.80-4.90) g/dL Albumin/Globulin Ratio (1.60-3.17) g/dL Procalcitonin (0.02-0.09) ng/mL Microbiology - Last 24 Hours (Table) 02/03/21 19:15 Gram Stain - Preliminary Foot - Left Wound Culture - Preliminary 02/02/21 19:15 Blood Culture - Preliminary Blood No Growth after 24 hours 02/02/21 09:54 Urine Culture - Preliminary Urine,Voided Assessment and Plan Plan: -Choledocholithiasis: Patient or ERCP followed by cholecystectomy -Elevated liver enzymes secondary to assessment #1 -Possible cellulitis will need wound care for ruptured bullae. Infectious disease was consulted patient is presently on broad-spectrum antibiotics -Possibility of cholecystitis broad-spectrum diuretics as mentioned above -Depression and anxiety -Nicotine use: Counseling was provided -Hypovolemic hyponatremia improved after IV hydration -DVT prophylaxis Lovenox
[2021-02-04] MEDS: LORazepam 2 MG/ML INJ IV PRN (16:48)
[2021-02-04] MEDS: HYDROcodone/APAP 10-325MG 1 EACH TAB PO PRN (19:22)
--- NOTE | 2021-02-04 19:32 | CONS ---
CONSULTATION DATE OF SERVICE: 02/04/2021 REASON FOR CONSULTATION: Sepsis. HISTORY OF PRESENT ILLNESS: The patient is a 55 -year-old female presenting to the ER at [facility] 2 days ago for evaluation of nausea, vomiting, abdominal pain, and the patient has developed a rash to bilateral wrist and bilateral ankle area. Symptoms have been going on for about 2 weeks. The patient denies having any history of any trauma. Denies any new medication started. The patient has been complaining of hurting all over. The patient denies any high-grade fever or chills. Denies any headache or URI symptoms. No shortness of breath or cough. Pain in the abdomen has been mostly generalized dull aching, nausea, but no vomiting and no diarrhea. With these symptoms, the patient has been evaluated by the ER physician. On arrival to the ER, the patient has been afebrile. The patient did have elevated liver enzymes, amylase, lipase have been normal. Urine was positive with large WBC: The patient did have a CT of abdomen and pelvis with choledocholithiasis and no evidence of any acute cholecystitis. The patient has been evaluated by both General surgery and GI Services and plan is for ERCP, follow up possible cholecystectomy. Patient being treated with cefepime and vancomycin. Infectious Disease was consulted. Concern for possible sepsis and rash the patient has. The patient currently denies any rash in any other part of the body. REVIEW OF SYSTEMS: Positive points have been mentioned in HPI. Rest of systems are negative. PAST MEDICAL HISTORY: [place], anxiety, depression. PAST SURGICAL HISTORY: Appendectomy. SOCIAL HISTORY: Current everyday smoker. Occasionally drinks. No drug use. FAMILY HISTORY: No pertinent findings noticed. ALLERGIES: PENICILLIN with history of rash, no antibiotics. MEDICATIONS: The patient is currently on [place], cefepime 1 gm, Lovenox, Dilaudid, Indocin, Ativan, vancomycin, Pharmacy to dose, Zofran. PHYSICAL EXAMINATION: Blood pressure 138/69, pulse of 101, temperature 98.3. She is 98% on room air. General description: The patient is an elderly female lying in bed in no distress. No tachypnea or accessory muscles of respiration use. HEENT: Examination shows no pallor or scleral icterus. Oral mucosal membranes are dry. NECK: Trachea central. No thyromegaly. LUNGS unlabored breathing, clear to auscultation anteriorly. No wheeze or crackles. HEART S1, S2. Regular rate and rhythm. ABDOMEN: Soft, no tenderness. No guarding. No rigidity. EXTREMITIES: No edema of the feet. Examination of the skin: She did have persistent blister on bilateral wrists, with some minimal erythema as well as on bilateral ankle area with clear fluid. No purulence. NEUROLOGICAL: Patient is awake, alert, oriented. Mood and affect normal. LABS: Hemoglobin is 12.7, white count 6.2, BUN of 16 and creatinine 0.45, potassium 5.2. Liver enzymes mildly elevated. CT report mentioned above. DIAGNOSTIC IMPRESSION/PLAN: 1. Patient presented to the hospital with multiple symptoms in this patient who has been complaining of hurting all over. She has no fever or elevated white count. Did have a blister on bilateral wrists as well as bilateral ankle area, more likely pointing towards possible rheumatological or primary skin condition. Clinically not behaving as an infection or cellulitis in patient with no fever or elevated white count. 2. Patient with abdominal pain with incidental choledocholithiasis, elevated liver enzymes. No evidence of cholecystitis on the CT. 3. Positive UA, possible urinary tract infection as she has been complaining of symptoms. PLAN: 1. We will wait for the dermatology evaluation for her workup for possible bullous pemphigoid. 2. We will obtain a CRP, ANCA, PRECIOUS, and basic hematologic workup. 3. Continue the vancomycin and cefepime at this point while waiting for the condition to stabilize and workup to finalize. 4. We will follow on her clinical condition to further adjust medication if needed. Thank you for this consultation. Will follow this patient along with you. MMODL / IJN: [id number] /
[2021-02-04] MEDS ORDERED: VANCOMYCIN TROUGH DUE 1 EACH MISC MISCELLANE ONE (22:00)
[2021-02-04] MEDS: ONDANSETRON 4 MG/2 ML VIAL IVP PRN (23:01)
[2021-02-05] MEDS: HYDROmorphone 0.5 MG/0.5 ML SYRINGE IVP PRN ×4 (01:27→15:03)
[2021-02-05] MEDS: 0.9% NACL WITH KCL 20 MEQ/L 1,000 ML with MVI, ADULT NO.4 WITH VIT K 10 ML, THIAMINE 10... IV SCH ×4 (02:47)
[2021-02-05] MEDS: LORazepam 2 MG/ML INJ IV PRN (04:18)
[2021-02-05] MEDS: ENOXAPARIN 40 MG/0.4 ML SYRINGE SQ SCH (08:40)
[2021-02-05] MEDS: CEFEPIME 1 GM in SODIUM CHLORIDE 0.9% 50 ML IVPB SCH ×2 (08:46→22:39)
[2021-02-05] MEDS ORDERED: IV FLUID CONTINUATION 1,000 ML IV ONE (10:38)
[2021-02-05] MEDS ORDERED: INDOMETHACIN 50MG SUPPOSITORY RECTAL ONE (11:00)
[2021-02-05 11:10] LABS: African American GFR (CKD) 126.7 (60.0-200.0); Albumin/Globulin Ratio 1.43 (1.60-3.17); C Reactive Protein 5.5 mg/dL (0.0-0.8); Globulin 2.1 g/dL (1.6-3.3); Non-African American GFR(CKD) 109.3 (60.0-200.0); Potassium 4.1 mmol/L (3.5-5.5); Total Protein 5.1 g/dL (6.2-8.2)
[2021-02-05] MEDS ORDERED: fentaNYL (PF) 50 MCG/ML 2 ML AMP IVP ONE (11:27)
[2021-02-05] MEDS ORDERED: ONDANSETRON 4 MG/2 ML VIAL ONE (12:04)
[2021-02-05] MEDS ORDERED: SUCCINYLCHOLINE CHLORIDE 100 MG/5 ML SYR IV ONE (12:04)
[2021-02-05] MEDS ORDERED: PROPOFOL 10 MG/ML 20 ML VIAL IV ONE (12:04)
[2021-02-05] MEDS ORDERED: LIDOCAINE 1% INJ 10MG/ML (20 ML MDV) ONE (12:04)
[2021-02-05] MEDS ORDERED: NEOSTIGMINE 1 MG/ML 10 ML VIAL ONE (12:04)
[2021-02-05] MEDS ORDERED: GLYCOPYRROLATE 0.2 MG/ML 2 ML VIAL ONE (12:04)
[2021-02-05] MEDS ORDERED: ROCURONIUM 10 MG/ML (5 ML VIAL) IV ONE (12:04)
[2021-02-05] MEDS ORDERED: fentaNYL (PF) 50 MCG/ML 2 ML AMP ONE (12:04)
[2021-02-05] MEDS ORDERED: LACTATED RINGERS 1,000 ML IV ONE (12:09)
[2021-02-05] MEDS ORDERED: IOPAMIDOL-300 50ML BTL MISCELLANE ONE (13:00)
--- NOTE | 2021-02-05 14:01 | FL ---
EXAMINATION TYPE: FL ERCP DATE OF EXAM: 02/05/2021 CLINICAL HISTORY: Pain and diarrhea with nausea. Gallstones. TECHNIQUE: Fluoroscopy. COMPARISON: Gallbladder ultrasound and CT abdomen and pelvis 3 days ago. FINDINGS: Fluoroscopic guidance was provided during ERCP procedure performed by Dr. Houser. A tota l of 17 seconds of fluoroscopic time was utilized during ERCP the procedure and 5 spot images was acq uired. Images acquired show access a duodenal ampulla with dilatation and filling defects possible ca lculi versus air bubbles. IMPRESSION: As Above.
--- NOTE | 2021-02-05 14:11 | P.PCN ---
Date of Procedure: 02/05/21 Description of Procedure: Brief history: 65-year-old female with medical history significant for tobacco abuse who presented for a constellation of symptoms including rash of her hands and feet, nausea and vomiting and abdominal pain. Patient reports that the symptoms of present for the past few weeks. She denies any inciting factors such as new medications, unusual foods or travel. The patient reports pain diffusely across her abdomen and in the right upper quadrant of her abdomen. The pain is severe and intensive nature. No prior episodes of similar pain.. She reports multiple episodes of nausea and vomiting and difficulty tolerating foods. She has ulcers on her lower extremities bilaterally and associated rash as well as on her hands. Laboratory evaluation on presentation significant for WBC 7.3, hemoglobin 12.9, platelet count 149,000 with total bilirubin 1.6, alkaline ph osphatase 44, AST 159 and ALT 55. Imaging performed in evaluation with ultrasound showing a gallbladder neck stone with no ductal dilation. However, computed tomography scan of the abdomen performed in evaluation did show cholecystitis and a stone in the distal CBD. Procedure performed: ERCP with sphincterotomy, cholangiogram, balloon sweep of the bile duct and stent placement Preoperative diagnoses Choledocholithiasis IV sedation per anesthesia Estimated blood loss: Minimal. Procedure: After informed consent was obtained from the patient and after the risks benefits and complications including bleeding perforation and pancreatitis explained in detail the patient was brought into the endoscopy unit. The patient was placed in prone position and IV conscious sedation was administered by anesthesia under continuous monitoring. The Olympus side-viewing duodenoscope was then inserted into the mouth and esophagus intubated without any difficulty. The scope was gradually advanced into the stomach and duodenum. The major papilla was identified without any difficulty, it was located on the edge of the diverticulum. The papilla was cannulated and a wire was passed into the bile duct. Dye was then injected into the bile duct in the intrahepatics were identified. Cholangiogram was significant for multiple filling defects in the distal CBD suggestive of stones. An 8 mm sphincterotomy was then performed and the sphincterotome was exchanged over a wire for a balloon extractor. The balloon was inflated to 8.5 mm with multiple passes of the bile duct significant for a large 1.5 cm stone. A second stone was noted to be impacted at the sphincterotomy site and could not be removed. A [employer] 10 cm x 7- [place] double pigtail stent was then passed over the wire with positioning confirmed with fluoroscopy. Bile flow was noted. Patient tolerated the procedure well. Impression: Choledocholithiasis. ERCP with cholangiogram, sphincterotomy, balloon sweep productive of a large CBD stone and placement of a plastic double pigtail stents for retained stone Recommendations: The findings of this examination were discussed with the patient as well as a shannan santos. Okay for full liquid diet. Continue to monitor CBC, CMP and liver enzymes. Surgical service is following the patient. Defer timing of cholecystectomy to the surgical service. Patient will need referral to tertiary center in the future for stent removal and repeat ERCP for extraction of the retained CBD stone.
--- NOTE | 2021-02-05 14:25 | P.PN ---
Subjective Progress Note Date: 02/05/21 65-year-old pleasant female came in with the complaints of nausea vomiting abdominal pain abdominal pain is epigastric area moderate severity associated nausea vomiting. Patient is found to have choledocholithiasis with elevated liver enzymes. Patient will undergo ERCP today and will need cholecystectomy later. Patient also has multiple bullae or that ruptured in bilateral lower extremities with possible surrounding cellulitis. Infectious disease was consulted for wound care and possible need of antibiotics and dermatology was consulted as well with concerns of pemphigus patient has these bullae started about a week ago patient is presently on vancomycin and cefepime 02/05/2021 Patient is seen and evaluated and follow-up currently awaiting to undergo ERCP with GI today. Infectious disease following and patient is maintained on IV antibiotic therapy. Consult for dermatology was placed although pending at this time. Discussed with nursing staff about [facility] Patient has multiple wounds and bullae present on bilateral hands and feet. Potassium is improved today at 4.1 with a sodium of 142 current creatinine is 0.4. Liver functions trending down. Review of systems: Constitutional: No reports of fatigue, fever, or chills Cardiovascular: No reports of chest pain or palpitations Respiratory: No reports of shortness of breath or cough GI: No reports of nausea, vomiting, or diarrhea : No reports of dysuria or retention Neurovascular: No reports of weakness or numbness All medications have been reviewed Objective - Vital Signs Vital signs: Vital Signs Temp 98 F 02/05/21 10:42 Pulse 106 H 02/05/21 10:42 Resp 18 02/05/21 10:42 BP 149/77 02/05/21 10:42 Pulse Ox 94 L 02/05/21 10:42 Intake & Output 02/04/21 02/05/21 02/05/21 18:59 06:59 18:59 Intake Total 1380 300 Balance 1380 300 Intake: IV 300 Intake, IV Titration 900 Amount 0.9% NaCl with KCl 20 Meq 600 /l 1,000 ml @ 50 mls/hr IV .[id number] DIONI with Mvi, Adult No.4 with Vit K 10 ml with Thiamine 100 mg with Folic Acid 1 mg Rx#: [id number] Cefepime 1 gm In Sodium 50 Chloride 0.9% 50 ml @ 100 mls/hr IVPB Q12HR DIONI Rx #:[id number] Vancomycin 1,000 mg In 250 Sodium Chloride 0.9% 250 ml @ 125 mls/hr IVPB Q12H DIONI Rx#:[id number] Oral 480 Other: # Voids 3 2 - Exam GENERAL: The patient is alert and oriented x3, not in any acute distress. Well developed, well nourished. HEENT: Pupils are round and equally reacting to light. EOMI. No scleral icterus. No conjunctival pallor. Normocephalic, atraumatic. No pharyngeal erythema. No thyromegaly. CARDIOVASCULAR: S1 and S2 present. No murmurs, rubs, or gallops. PULMONARY: Chest is clear to auscultation, no wheezing or crackles. ABDOMEN: Abdominal distention with epigastric abdominal tenderness might mild tenderness normoactive bowel sounds. No palpable organomegaly. MUSCULOSKELETAL: No joint swelling or deformity. EXTREMITIES: No cyanosis, clubbing, or pedal edema. NEUROLOGICAL: Gross neurological examination did not reveal any focal deficits. SKIN: Multiple bullous lesions noted of upper extremities, bilateral hands, underneath breasts, lower extremities and bilateral feet with redness and extreme tenderness - Labs CBC & Chem 7: 02/04/21 10:31 02/05/21 06:55 Labs: Abnormal Lab Results - Last 24 Hours (Table) 02/05/21 02/05/21 Range/Units 06:55 06:55 ESR 61 H (0-30) mm/Hr Creatinine 0.4 L (0.6-1.5) mg/dL BUN/Creatinine Ratio 40.00 H (12.00-20.00) Ratio Glucose 64 L (70-110) mg/dL Calcium 8.0 L (8.7-10.3) mg/dL AST 127 H (13-35) U/L ALT 53 H (8-44) U/L C-Reactive Protein 5.5 H (0.0-0.8) mg/dL Total Protein 5.1 L (6.2-8.2) g/dL Albumin 3.00 L (3.80-4.90) g/dL Albumin/Globulin Ratio 1.43 L (1.60-3.17) g/dL Rheumatoid Factor 21 H (0-15) IU/mL Microbiology - Last 24 Hours (Table) 02/03/21 19:15 Gram Stain - Preliminary Foot - Left Wound Culture - Preliminary Presumptive MRSA 02/02/21 19:15 Blood Culture - Preliminary Blood No Growth after 48 hours 02/02/21 09:54 Urine Culture - Final Urine,Voided Assessment and Plan Assessment: -Choledocholithiasis: Patient underwent ERCP today with GI and surgery following for possible cholecystectomy in the near future -Elevated liver enzymes secondary to assessment #1 -Possible cellulitis will need wound care for ruptured bullae. Infectious disease following and patient is maintained on cefepime and vancomycin -Possibility of cholecystitis -Depression and anxiety -Nicotine use: Counseling was provided -Hypovolemic hyponatremia improved after IV hydration -DVT prophylaxis Lovenox Plan: Continue with current IV antibiotics. Dermatology office contacted and updated on consult. Infectious disease is following. Patient underwent ERCP today with GI showing multiple filling defects in the distal CBD suggestive of stones. Patient underwent an 8 mm sphincterotomy, balloon sweep a large CBD stone and mu ltiple other stones that could not be removed and a pigtail stent was placed. Patient okay for diet as tolerated with full liquids. Will discuss with surgery about the possibility of cholecystectomy during this hospitalization. Will repeat labs in continue to monitor closely. Possibly consult wound care.
--- NOTE | 2021-02-05 14:30 | XR ---
EXAMINATION TYPE: XR chest 1V confirm line [facility] DATE OF EXAM: 02/05/2021 CLINICAL HISTORY: Central line insertion . TECHNIQUE: Single AP portable upright view of the chest is obtained. COMPARISON: Chest x-ray from 3 days earlier FINDINGS: New right Internal jugular central venous catheter terminates in right atrium. Persistent elevated right hemidiaphragm. Chronic parenchymal changes with bibasilar atelectasis. No pneumothorax seen bilaterally. Cardiac silhouette size stable and within normal limits without chronic thoracic a brayan. Osseous structures are demineralized. New Internal biliary plastic stent is partially imaged. IMPRESSION: New right internal jugular central venous catheter terminates in right atrium. No pneumot horax seen. Elevated right hemidiaphragm with new patchy bibasilar atelectatic change.
[2021-02-05] MEDS: VANCOMYCIN 1,000 MG in SODIUM CHLORIDE 0.9% 250 ML IVPB SCH ×2 (15:03→22:40)
--- NOTE | 2021-02-05 15:12 | P.PN ---
Subjective Progress Note Date: 02/05/21 Principal diagnosis: Choledocholithiasis The patient just arrived back to the room from ERCP. She is still somewhat sedated Objective - Vital Signs Vital signs: Vital Signs Temp 98.3 F 02/05/21 14:00 Pulse 93 02/05/21 14:30 Resp 16 02/05/21 14:30 BP 151/85 02/05/21 14:30 Pulse Ox 96 02/05/21 14:30 Intake & Output 02/04/21 02/05/21 02/05/21 18:59 06:59 18:59 Intake Total 1380 1250 Balance 1380 1250 Intake: IV 1250 Intake, IV Titration 900 Amount 0.9% NaCl with KCl 20 Meq 600 /l 1,000 ml @ 50 mls/hr IV .[id number] DIONI with Mvi, Adult No.4 with Vit K 10 ml with Thiamine 100 mg with Folic Acid 1 mg Rx#: [id number] Cefepime 1 gm In Sodium 50 Chloride 0.9% 50 ml @ 100 mls/hr IVPB Q12HR DIONI Rx #:[id number] Vancomycin 1,000 mg In 250 Sodium Chloride 0.9% 250 ml @ 125 mls/hr IVPB Q12H DIONI Rx#:[id number] Oral 480 Other: # Voids 3 2 - Constitutional Constitutional Comment(s): somnolent, opens eyes to name - Labs CBC & Chem 7: 02/04/21 10:31 02/05/21 06:55 Labs: Abnormal Lab Results - Last 24 Hours (Table) 02/05/21 02/05/21 Range/Units 06:55 06:55 ESR 61 H (0-30) mm/Hr Creatinine 0.4 L (0.6-1.5) mg/dL BUN/Creatinine Ratio 40.00 H (12.00-20.00) Ratio Glucose 64 L (70-110) mg/dL Calcium 8.0 L (8.7-10.3) mg/dL AST 127 H (13-35) U/L ALT 53 H (8-44) U/L C-Reactive Protein 5.5 H (0.0-0.8) mg/dL Total Protein 5.1 L (6.2-8.2) g/dL Albumin 3.00 L (3.80-4.90) g/dL Albumin/Globulin Ratio 1.43 L (1.60-3.17) g/dL Rheumatoid Factor 21 H (0-15) IU/mL Microbiology - Last 24 Hours (Table) 02/03/21 19:15 Gram Stain - Preliminary Foot - Left Wound Culture - Preliminary Presumptive MRSA 02/02/21 19:15 Blood Culture - Preliminary Blood No Growth after 48 hours 02/02/21 09:54 Urine Culture - Final Urine,Voided Assessment and Plan (1) Tobacco abuse Current Visit: Yes Status: Acute Code(s): Z72.0 - TOBACCO USE SNOMED Code(s): 277661570 (2) Choledocholithiasis Current Visit: Yes Status: Acute Code(s): K80.50 - CALCULUS OF BILE DUCT W/O CHOLANGITIS OR CHOLECYST W/O OBST SNOMED Code(s): 008150551 (3) Hyponatremia Current Visit: Yes Status: Acute Code(s): E87.1 - HYPO-OSMOLALITY AND HYPONATREMIA SNOMED Code(s): 48243033 (4) Cellulitis Current Visit: Yes Status: Acute Code(s): L03.90 - CELLULITIS, UNSPECIFIED SNOMED Code(s): 164798647 Plan: The patient has undergone 2 with removal of one stone. There is still a stone present but a stent was able to be placed. Tentatively she can go for laparoscopic cholecystectomy possible open tomorrow if she has no complications from the ERCP. I'll check her lab in the morning. Patient still sedated so discuss informed consent tomorrow
[2021-02-05] MEDS ORDERED: SODIUM BICARB 8.4% 50 ML SYR (1 MEQ/ML) ONE (15:36)
[2021-02-05] MEDS ORDERED: EPINEPHrine 10 ML SYRINGE (0.1 MG/ML) ONE (15:36)
[2021-02-05 16:00] LABS: Glucose,Whole Blood 90 mg/dL (75-99)
[2021-02-05 16:26] LABS: Glucose,Whole Blood 95 mg/dL (75-99)
--- NOTE | 2021-02-05 16:35 | XR ---
EXAMINATION TYPE: XR chest 1V portable DATE OF EXAM: 02/05/2021 COMPARISON: Prior chest x-ray 02/05/2021 HISTORY: Intubated TECHNIQUE: Single frontal view of the chest is obtained. FINDINGS: Endotracheal tube is superimposed over the tracheal air column, there is an NG tube in minal ce, distal tip in the left upper quadrant, there is a right sided catheter as on prior exam, distal t ip is overlying the right atrium, catheter tubing also present in the right upper quadrant. There are overlying artifacts. Patient is rotated. No evident pneumothorax or pleural effusion. Cardiac medias tinal silhouette is stable. There is persistent elevation of right hemidiaphragm. There is interval d evelopment of airspace disease greater in the right lung. IMPRESSION: Correlate for pneumonia, atypical edema, follow-up recommended
--- NOTE | 2021-02-05 16:40 | P.PN ---
Progress Note - Text Progress Note Date: 02/05/21 I responded to a CODE BLUE on this patient. She just returned from an ERCP and was lethargic as reported by her nurse. Subsequently nurse walked back to the room and patient was unresponsive and pulseless. ACLS protocol was started immediately and heart monitor was connected. Patient received 1 dose of epinephrine and a dose of IV bicarbonate. She also received 1 dose of Narcan. Her initial rhythm is unknown to me. After 1 round of CPR patient had return of spontaneous circulation. Blood pressure 140s over 80s. She was intubated by anesthesia during the code. Twelve-lead EKG post CODE BLUE showed sinus tachycardia with frequent PACs. We will obtain stat chest x-ray to confirm ET tube placement. Patient will be transferred to ICU. Obtain stat electrolytes and CBC. Blood gas as well. Child And Adolescent Psychiatrist notified. Patient's sister also notified by nursing staff. Overall prognosis is guarded
[2021-02-05] MEDS ORDERED: propofoL 100 ML IV ONE (16:43)
[2021-02-05 17:09] LABS: ABG Base Excess -6.8 mmol/L; ABG HCO3 19 mmol/L (21-25); ABG PCO2 34 mmHg (35-45); ABG PH 7.35 (7.35-7.45); ABG PO2 396 mmHg (83-108); ABG TCO2 20 mmol/L (19-24); Allen Test Performed? Yes
[2021-02-05] MEDS: SODIUM CHLORIDE 0.9% 1,000 ML IV SCH (17:14)
[2021-02-05 17:23] LABS: Basophils % (A) 0 %; Eosinophils % (A) 0 %; HCT 34.5 % (34.0-46.0); HGB 11.4 gm/dL (11.4-16.0); Lymphocytes # (A) 0.8 k/uL (1.0-4.8); Lymphocytes % (A) 16 %; MCH 41.7 pg (25.0-35.0); MCV 126.2 fL (80.0-100.0); Macrocytosis Marked; Mean Platelet Volume 7.1; Monocytes # (A) 0.2 k/uL (0-1.0); Monocytes % (A) 4 %; Neutrophils # (A) 4.1 k/uL (1.3-7.7); Neutrophils % (A) 80 %; Platelet Count 158 k/uL (150-450); RBC 2.74 m/uL (3.80-5.40); WBC 5.1 k/uL (3.8-10.6)
--- NOTE | 2021-02-05 17:33 | P.CNPUL ---
History of Present Illness Consult date: 02/05/21 Requesting physician: Geovani Horton Reason for consult: other (Cardiopulmonary arrest) Chief complaint: Nausea vomiting abdominal pain and rash History of present illness: This is a 65-year-old female with history of coronary artery disease, previous CO, presented to the hospital on 02/02/2021, patient presented with multiple complaints including rash involving her hands, feet, and there was basically excoriation of the skin and sloughing of the outer layer of the skin in her hands, and in her feet around the ankles mostly in the dorsal aspect of both ankles. Patient was also complaining of intermittent episodes nausea vomiting abdominal pain. And his symptoms are at least of one week duration. This all started as redness in her hands and her ankles, looked initially like sunburn, and went on to blister and slough off. CT of the abdomen was performed that it showed choledocholithiasis and cholecystitis. There was also slight elevation of her transaminases. Patient was admitted and seen by many consultants over the last 3 days including surgery/Dr. Grey gastroenterology/, and she was seen by internal medicine. She was also seen by infectious disease on consultation. Placed empirically on antibiotics in the form of Unasyn and vancomycin. Today, the patient underwent ERCP , sphincterotomy, balloon sweep of large CBD stone and placement of the plastic double-pigtail stent for retained stone. Patient was transferred to her room without any major events. While in her room, the patient was complaining of neck pain, and she was given a dose of Dilaudid 0.5 mg. 20 minutes later, noticed return to the room and the patient was unresponsive and pulseless. Patient was coded as per ACLS protocol. Received 1 dose of epinephrine, 1 dose of bicarb, and 1 dose of Narcan. Her initial rhythm was asystole 5 minutes later, there was return of spontaneous circulation. And blood pressure was noted to be 140/80. During the code, patient was intubated by anesthesia and her 12-lead EKG showed sinus tachycardia with frequent PACs. Chest x-ray showed adequate placement of the endotracheal tube and orogastric tube, and showed what seems to be a picture of pulmonary edema. Patient was transferred to the ICU, and I was asked to see her on consultation. Patient was on mechanical ventilation, ventilator settings were adjusted accordingly based on the ABG assist control rate of 20, tidal volume of 400, FiO2 of 100% and was later decreased to 50% and PEEP at 5. ABG showed a pO2 of 396 pCO2 of 34 pH of 7.35, this was on 100%, and patient was placed on propofol as she was not synchronous with mechanical ventilation. Right radial arterial line was placed. Patient was noted to have pinpoint pupils, was not responsive to any stimuli. Hence I recommended CT of the brain without contrast. I also recommended cardiac consultation. Continue empiric antib iotics. And she will likely need neurological evaluation to determine if the patient developed anoxic brain injury. Prognosis at this point is extremely guarded. Review of Systems ROS unobtainable: due to endotracheal tube Past Medical History Past Medical History: No Reported History, Myocardial Infarction (CO) Additional Past Medical History / Comment(s): heart murmur Last Myocardial Infarction Date:: unknown History of Any Multi-Drug Resistant Organisms: None Reported Past Surgical History: Appendectomy Smoking Status: Current every day smoker Medications and Allergies Home Medications Medication Instructions Recorded Confirmed Type No Known Home Medications 02/02/21 02/02/21 History Allergies Allergy/AdvReac Type Severity Reaction Status Date / Time Penicillins Allergy Unknown Verified 02/02/21 21:01 Childhood Physical Exam Vitals: Vital Signs Temp Pulse Pulse Resp BP BP Pulse Ox 02/05/21 15:05 91 17 144/77 94 L 02/05/21 14:30 93 16 151/85 96 02/05/21 14:15 97 16 150/92 98 02/05/21 14:00 98.3 F 104 H 20 101/69 97 02/05/21 10:42 98 F 106 H 18 149/77 94 L 02/05/21 05:00 97.9 F 100 16 107/75 93 L 02/04/21 20:20 97.9 F 94 18 141/80 92 L 02/04/21 20:00 18 Intake and Output 02/05/21 02/05/21 02/05/21 06:59 14:59 22:59 Intake Total 1140 1250 Balance 1140 1250 Intake: IV 1250 Intake, IV Titration 900 Amount 0.9% NaCl with KCl 20 Meq 600 /l 1,000 ml @ 50 mls/hr IV .[id number] DIONI with Mvi, Adult No.4 with Vit K 10 ml with Thiamine 100 mg with Folic Acid 1 mg Rx#: [id number] Cefepime 1 gm In Sodium 50 Chloride 0.9% 50 ml @ 100 mls/hr IVPB Q12HR [facility] Rx #:[id number] Vancomycin 1,000 mg In 250 Sodium Chloride 0.9% 250 ml @ 125 mls/hr IVPB Q12H [facility] Rx#:[id number] Oral 240 Other: # Voids 2 GENERAL: Revealed 65-year-old female intubated mechanically ventilated unresponsive to any stimuli, noted to have pinpoint pupils. HEENT: Pinpoint pupils. Dry mucous membranes, endotracheal tube and orogastric tube are intact. In proper position. CARDIOVASCULAR: Tachycardic, no S3 gallop, 2/6 systolic murmur thought the precordium. PULMONARY: Symmetrical chest expansion, minimal fine crackles at the bases, no rhonchi and no wheezes. ABDOMEN: Slightly distended, nontender, no megaly, no rebound, no guarding, patient is unresponsive to any painful stimuli. MUSCULOSKELETAL: No deformities noted in the joints. EXTREMITIES: No clubbing edema or cyanosis. However multiple areas of bruising noted in the forearms, there is also sloughing of the skin and bullous lesions involving both hands especially the left hand and the dorsal aspect of both ankles. NEUROLOGICAL: Unresponsive to any painful stimuli, pupils are pinpoint. SKIN: bullous lesions and skin breakdown noted in multiple areas including hands specially the left hand, and involving the dorsal aspect of both ankles bilaterally. Results - Laboratory Findings CBC and BMP: 02/04/21 10:31 02/05/21 06:55 ABG ABG pH 7.35 (7.35-7.45) 02/05/21 17:08 ABG pCO2 34 mmHg (35-45) L 02/05/21 17:08 ABG pO2 396 mmHg (83-108) H 02/05/21 17:08 ABG O2 Saturation 100.0 % (94-97) H 02/05/21 17:08 PT/INR, D-dimer PT 11.3 sec (9.0-12.0) 02/03/21 03:51 INR 1.1 (<1.2) 02/03/21 03:51 Abnormal lab findings: Abnormal Labs 02/02/21 02/02/21 02/02/21 09:54 18:50 18:50 RBC 3.28 L MCV 118.2 H MCH 40.7 H Plt Count Nucleated RBCs Macrocytosis Marked A ESR ABG pCO2 ABG pO2 ABG HCO3 ABG O2 Saturation Sodium 129 L Potassium Chloride 95 L Carbon Dioxide 21 L Creatinine BUN/Creatinine Ratio Glucose Plasma Lactic Acid Tyrese Calcium 8.1 L Total Bilirubin 1.4 H Conjugated Bilirubin AST 164 H ALT 59 H C-Reactive Protein Total Protein 6.2 L Albumin 3.2 L Albumin/Globulin Ratio Procalcitonin Urine Appearance Cloudy H Urine Protein 1+ H Urine Ketones Trace H Urine Blood Moderate H Urine Bilirubin 1+ H Ur Leukocyte Esterase Large H Urine RBC 30 H Urine WBC 62 H Ur Squamous Epith Cells 5 H Amorphous Sediment Occasional H Urine Bacteria Rare H Hyaline Casts 3 H Urine Mucus Rare H Rheumatoid Factor 02/02/21 02/02/21 02/03/21 18:50 23:34 03:51 RBC 3.31 L MCV 121.4 H MCH 39.1 H Plt Count 149 L Nucleated RBCs 4 H Macrocytosis Marked A ESR ABG pCO2 ABG pO2 ABG HCO3 ABG O2 Saturation Sodium Potassium Chloride Carbon Dioxide Creatinine BUN/Creatinine Ratio Glucose Plasma Lactic Acid Tyrese 4.5 H* 2.3 H* Calcium Total Bilirubin Conjugated Bilirubin AST ALT C-Reactive Protein Total Protein Albumin Albumin/Globulin Ratio Procalcitonin Urine Appearance Urine Protein Urine Ketones Urine Blood Urine Bilirubin Ur Leukocyte Esterase Urine RBC Urine WBC Ur Squamous Epith Cells Amorphous Sediment Urine Bacteria Hyaline Casts Urine Mucus Rheumatoid Factor 02/03/21 02/04/21 02/04/21 03:51 06:20 06:20 RBC MCV MCH Plt Count Nucleated RBCs Macrocytosis ESR ABG pCO2 ABG pO2 ABG HCO3 ABG O2 Saturation Sodium 129 L Potassium Chloride Carbon Dioxide Creatinine 0.45 L 0.5 L BUN/Creatinine Ratio 34.00 H Glucose 64 L Plasma Lactic Acid Tyrese Calcium 7.5 L 7.9 L Total Bilirubin 1.6 H Conjugated Bilirubin 0.80 H AST 154 H 132 H ALT 55 H 54 H C-Reactive Protein Total Protein 6.0 L 5.5 L Albumin 2.9 L 3.30 L Albumin/Globulin Ratio 1.50 L Procalcitonin 0.28 H Urine Appearance Urine Protein Urine Ketones Urine Blood Urine Bilirubin Ur Leukocyte Esterase Urine RBC Urine WBC Ur Squamous Epith Cells Amorphous Sediment Urine Bacteria Hyaline Casts Urine Mucus Rheumatoid Factor 02/04/21 02/04/21 02/05/21 10:31 10:31 06:55 RBC 2.93 L MCV 126.0 H MCH 41.1 H Plt Count Nucleated RBCs Macrocytosis Marked A ESR ABG pCO2 ABG pO2 ABG HCO3 ABG O2 Saturation Sodium 136 L Potassium 5.2 H Chloride Carbon Dioxide 21 L Creatinine 0.45 L 0.4 L BUN/Creatinine Ratio 40.00 H Glucose 72 L 64 L Plasma Lactic Acid Tyrese Calcium 7.8 L 8.0 L Total Bilirubin 1.5 H Conjugated Bilirubin AST 145 H 127 H ALT 51 H 53 H C-Reactive Protein 5.5 H Total Protein 5.9 L 5.1 L Albumin 2.8 L 3.00 L Albumin/Globulin Ratio 1.43 L Procalcitonin Urine Appearance Urine Protein Urine Ketones Urine Blood Urine Bilirubin Ur Leukocyte Esterase Urine RBC Urine WBC Ur Squamous Epith Cells Amorphous Sediment Urine Bacteria Hyaline Casts Urine Mucus Rheumatoid Factor 21 H 02/05/21 02/05/21 06:55 17:08 RBC MCV MCH Plt Count Nucleated RBCs Macrocytosis ESR 61 H ABG pCO2 34 L ABG pO2 396 H ABG HCO3 19 L ABG O2 Saturation 100.0 H Sodium Potassium Chloride Carbon Dioxide Creatinine BUN/Creatinine Ratio Glucose Plasma Lactic Acid Tyrese Calcium Total Bilirubin Conjugated Bilirubin AST ALT C-Reactive Protein Total Protein Albumin Albumin/Globulin Ratio Procalcitonin Urine Appearance Urine Protein Urine Ketones Urine Blood Urine Bilirubin Ur Leukocyte Esterase Urine RBC Urine WBC Ur Squamous Epith Cells Amorphous Sediment Urine Bacteria Hyaline Casts Urine Mucus Rheumatoid Factor - Diagnostic Findings Chest x-ray: image reviewed (As noted in HPI.) Assessment and Plan Assessment: Impression: Cardiac arrest, exact etiology is not clear, required CPR for at least 5 minutes. Acute hypoxic respiratory failure secondary to cardiac arrest requiring intubation and mechanical ventilation. Extensive cellulitis and bullous lesions involving extremities, possible sepsis Choledocholithiasis and acute cholecystitis, status post ERCP Elevated liver enzymes secondary to above. History of depression and anxiety. History of nicotine use and tobacco dependence syndrome. Suspect anoxic brain injury secondary to cardiac arrest. Recommendation: Continue ventilatory support. Continue antibiotics. As per infectious disease on the case. Address nutritional support in the next [address] of the brain, rule out CVA today. Cardiac consultation. Neurologic consultation. Cardiac panel. Echocardiogram with Doppler. Hemodynamic support if necessary. We'll continue to follow. Prognosis is extremely poor and guarded. Time with Patient: Greater than 30
[2021-02-05 17:40] LABS: ALT 85 U/L (4-34); AST 363 U/L (14-36); African American GFR (CKD) >90 (>60 ml/min/1.73 sqM); Albumin 2.3 g/dL (3.5-5.0); Alkaline Phosphatase 50 U/L (38-126); Anion Gap 11 mmol/L; Blood Urea Nitrogen 14 mg/dL (7-17); Calcium 7.3 mg/dL (8.4-10.2); Carbon Dioxide 19 mmol/L (22-30); Chloride 111 mmol/L (98-107); Glucose 89 mg/dL (74-99); Magnesium 1.9 mg/dL (1.6-2.3); Non-African American GFR(CKD) >90 (>60 ml/min/1.73 sqM); Potassium 3.5 mmol/L (3.5-5.1); Sodium 141 mmol/L (137-145); Total Bilirubin 1.5 mg/dL (0.2-1.3); Total Protein 4.7 g/dL (6.3-8.2)
[2021-02-05 17:51] LABS: INR 1.1 (<1.2); Partial Thromboplastin Time 20.7 sec (22.0-30.0); Prothrombin Time 11.1 sec (9.0-12.0)
[2021-02-05 17:55] LABS: D-Dimer >34.10 mg/L FEU (<0.60)
--- NOTE | 2021-02-05 18:05 | CT ---
EXAMINATION TYPE: CT brain wo con DATE OF EXAM: 02/05/2021 HISTORY: Mental status changes CT DLP: 1188.4 mGycm. Automated Exposure Control for Dose Reduction was Utilized. TECHNIQUE: CT scan of the head is performed without contrast. COMPARISON: None. FINDINGS: There is no acute intracranial hemorrhage or midline shift identified. There is mild diff use ventricular and sulcal prominence consistent with diffuse age-related cerebral atrophy. There is mild to moderate low-attenuation in the periventricular white matter consistent with chronic small v essel ischemic change. The globes are intact and the visualized sinuses are clear. IMPRESSION: No acute intracranial hemorrhage or midline shift. There is mild diffuse age-related ce rebral atrophy and mild to moderate chronic small vessel ischemic change noted.
--- NOTE | 2021-02-05 20:33 | US ---
EXAMINATION TYPE: US venous doppler duplex LE DATE OF EXAM: 02/05/2021 8:01 PM COMPARISON: NONE CLINICAL HISTORY: elevated d-dimer. Elevated D Dimer per order. Patient unable to give history. Short ness of breath. SIDE PERFORMED: Bilateral TECHNIQUE: The lower extremity deep venous system is examined utilizing real time linear array sonog mata with graded compression, doppler sonography and color-flow sonography. VESSELS IMAGED: Common Femoral Vein Deep Femoral Vein Greater Saphenous Vein * Femoral Vein Popliteal Vein Small Saphenous Vein * Proximal Calf Veins (* superficial vessels) Limited due to edema. Right Leg: No evidence of DVT in veins imaged at this time from prox calf veins to CFV/GSV. Left Leg: No evidence of DVT in veins imaged at this time from prox calf veins to CFV/GSV. Mild to moderate subcutaneous edema bilaterally. No acute DVT identified in images saved. IMPRESSION: No acute DVT clearly seen in either lower extremity.
[2021-02-05] MEDS: CHLORHEXIDINE GLUCONATE 15 ML CUP MUCOUS MEM SCH (22:39)
--- NOTE | 2021-02-05 22:43 | PN ---
PROGRESS NOTE DATE OF SERVICE: 02/05/2021 REASON FOR FOLLOWUP: 1. Bilateral dorsum of the feet blisters and concern for cellulitis. 2. Choledocholithiasis. INTERVAL HISTORY: The patient was seen on rounds this morning. This patient was undergoing ERCP. She was hemodynamically stable this morning. No nausea or vomiting. No worsening abdominal pain or any diarrhea reported. The blister on the right leg has ruptured and surrounding redness has slightly decreased. PHYSICAL EXAMINATION: Blood pressure 93/70 with a pulse of 96. Temperature 98. She is 99% on 50% FiO2. General description is a middle-aged female lying in bed in no distress. RESPIRATORY SYSTEM: Unlabored breathing with decreased breath sounds at the base. No wheeze. HEART: S1, S2. Regular rate and rhythm. ABDOMEN: Soft. No tenderness. Right lower extremity with open wound from a ruptured blister. LABS: Hemoglobin is 11.4, white count 5.1. BUN of 14, creatinine 0.60. Lactic acid 3.7. DIAGNOSTIC IMPRESSION AND PLAN: Patient with bilateral wrist and ankle area blisters, possible rheumatological disorder and concern for possible secondary cellulitis. Culture now showing presumptive MRSA. Patient is covered with vancomycin; to continue. Local care with dry Aquacel Silver dressing. Will benefit from biopsy and dermatology evaluation. Continue supportive care. MMODL / IJN: [id number] /
[2021-02-06] MEDS: LORazepam 2 MG/ML INJ IV PRN (04:00)
[2021-02-06] MEDS: SODIUM CHLORIDE 0.9% 1,000 ML IV SCH ×3 (05:06→22:29)
[2021-02-06 05:18] LABS: ABG Base Excess -6.1 mmol/L; ABG HCO3 19 mmol/L (21-25); ABG Oxygen Saturation 99.4 % (94-97); ABG PCO2 30 mmHg (35-45); ABG PH 7.41 (7.35-7.45); ABG PO2 173 mmHg (83-108); ABG TCO2 20 mmol/L (19-24); Allen Test Performed? Yes
--- NOTE | 2021-02-06 06:39 | PCN ---
PROCEDURE NOTE PROCEDURE PERFORMED: Placement of the right radial arterial line. PREOPERATIVE DIAGNOSIS: Status post cardiac arrest and CPR. POSTOPERATIVE DIAGNOSIS: Status post cardiac arrest and CPR. ANESTHESIA: None deployed. PROCEDURE: Patient was placed in supine position, right wrist was prepared in a sterile fashion and drapes were applied. The right radial artery was palpated, easily cannulated, and a guidewire was placed. A Cook catheter was inserted over the guidewire, and the guidewire was removed. Good blood flow, good waveform noted, no evidence of any immediate complications. Line was secured using 3.0 silk sutures. MMODL / IJN: [id number] /
[2021-02-06 07:09] LABS: Basophils % (A) 0 %; Eosinophils % (A) 0 %; HCT 33.8 % (34.0-46.0); HGB 11.1 gm/dL (11.4-16.0); Lymphocytes # (A) 0.9 k/uL (1.0-4.8); Lymphocytes % (A) 12 %; MCH 40.7 pg (25.0-35.0); MCHC 32.7 g/dL (31.0-37.0); Macrocytosis Marked; Mean Platelet Volume 7.3; Monocytes # (A) 0.5 k/uL (0-1.0); Monocytes % (A) 7 %; Neutrophils # (A) 5.7 k/uL (1.3-7.7); Neutrophils % (A) 79 %; Platelet Count 162 k/uL (150-450); RBC 2.72 m/uL (3.80-5.40); RDW 14.4 % (11.5-15.5); WBC 7.3 k/uL (3.8-10.6)
[2021-02-06 07:10] LABS: MCV 124.5 fL (80.0-100.0)
[2021-02-06 07:46] LABS: Albumin 2.1 g/dL (3.5-5.0); Calcium 7.3 mg/dL (8.4-10.2); Potassium 3.4 mmol/L (3.5-5.1); Total Bilirubin 1.1 mg/dL (0.2-1.3); Total Protein 4.5 g/dL (6.3-8.2)
--- NOTE | 2021-02-06 07:54 | XR ---
EXAMINATION TYPE: XR chest 1V portable DATE OF EXAM: 02/06/2021 Comparison: 02/05/2021 Clinical History: 65-year-old female Tube placement Findings: ET tube tip 1.2 cm from the silvina. NG tube courses below the diaphragm. Right IJ CVC tip in the lowe r right atrium. Interstitial and patchy opacities remain but have shown some improvement from prior e xam. Possible subtle pulmonary nodule in the periphery of the left upper lobe. Heart upper limits of normal in size. Possible trace right effusion. Impression: 1. ET tube tip 1.2 cm from the silvina. Pull back 2 cm and reassess at follow-up. 2. Persistent interstitial and patchy airspace disease which shows slight improvement from prior. 3. Apparent pulmonary nodule in the periphery of the left upper lobe. Cross-sectional evaluation supriya mmended to exclude neoplasm or determine follow-up once the patient's acute pathology has been treate d.
[2021-02-06] MEDS: 0.9% NACL WITH KCL 20 MEQ/L 1,000 ML with MVI, ADULT NO.4 WITH VIT K 10 ML, THIAMINE 10... IV SCH ×4 (08:14)
[2021-02-06] MEDS: PANTOPRAZOLE 40 MG/10 ML VIAL IV SCH (08:27)
[2021-02-06] MEDS: CHLORHEXIDINE GLUCONATE 15 ML CUP MUCOUS MEM SCH ×2 (08:28→22:22)
[2021-02-06] MEDS: ENOXAPARIN 40 MG/0.4 ML SYRINGE SQ SCH (08:28)
[2021-02-06] MEDS ORDERED: SODIUM CHLORIDE 0.9% 1,000 ML IV ONE (08:39)
[2021-02-06] MEDS: CEFEPIME 1 GM in SODIUM CHLORIDE 0.9% 50 ML IVPB SCH ×2 (08:39→22:29)
[2021-02-06] MEDS ORDERED: LORazepam 2 MG/ML INJ IV STA (08:57)
[2021-02-06] MEDS ORDERED: LORazepam 2 MG/ML INJ IV PRN (08:57)
[2021-02-06] MEDS ORDERED: LORazepam 2 MG/ML INJ ONE (09:00)
--- NOTE | 2021-02-06 09:40 | P.PN ---
Subjective Progress Note Date: 02/06/21 Principal diagnosis: Choledocholithiasis Patient was seen and examined in the ICU. He is currently intubated and sedated, nonresponsive. She is status postop day #1 for ERCP with stone extraction and biliary stent placement. The patient was found nonresponsive and pulseless yesterday afternoon, susan blue was called. CPR was initiated and the patient was intubated and brought to the ICU. It is reported she has been nonresponsive to sternal rub. Cardiology and neurology consult with. The patient did have a CT of the brain which showed no acute abnormal findings, chr onic small vessel ischemia. Objective - Vital Signs Vital signs: Vital Signs Temp 98.1 F 02/06/21 08:00 Pulse 98 02/06/21 08:00 Resp 24 02/06/21 08:00 BP 102/61 02/06/21 08:00 Pulse Ox 100 02/06/21 08:00 Intake & Output 02/05/21 02/06/21 02/06/21 18:59 06:59 18:59 Intake Total 1450 1200 200 Output Total 200 980 65 Balance 1250 220 135 Weight 57.4 kg Intake: IV 1450 1200 200 Sodium Chloride 0.9% 1, 200 1200 200 000 ml @ 100 mls/hr IV . Q10H [facility] Rx#:[id number] Output: Urine 200 980 65 Other: Voiding Method Indwelling Catheter Indwelling Catheter Indwelling Catheter ABP, PAP, CO, CI - Last Documented Arterial Blood Pressure 112/52 - Exam General appearance: The patient is intubated and sedated on mechanical ventilation. HET: Head is normocephalic and atraumatic. Conjunctiva pink. Sclera anicteric. Neck: Supple without lymphadenopathy. Abdomen: Soft, nondistended with bowel sounds. No guarding or rigidity. Extremities: Normal skin color and turgor. No pedal edema Skin: No rashes, no jaundice Neurological: Sedated and intubated. Nonresponsive. - Labs CBC & Chem 7: 02/06/21 06:45 02/06/21 06:45 Labs: Abnormal Lab Results - Last 24 Hours (Table) 02/05/21 02/05/21 02/05/21 Range/Units 06:55 06:55 17:05 RBC 2.74 L (3.80-5.40) m/uL Hgb (11.4-16.0) gm/dL Hct (34.0-46.0) % MCV 126.2 H (80.0-100.0) fL MCH 41.7 H (25.0-35.0) pg Lymphocytes # 0.8 L (1.0-4.8) k/uL Macrocytosis Marked A ESR 61 H (0-30) mm/Hr APTT (22.0-30.0) sec D-Dimer (<0.60) mg/L FEU ABG pCO2 (35-45) mmHg ABG pO2 (83-108) mmHg ABG HCO3 (21-25) mmol/L ABG O2 Saturation (94-97) % Potassium (3.5-5.1) mmol/L Chloride (98-107) mmol/L Carbon Dioxide (22-30) mmol/L Creatinine 0.4 L (0.6-1.5) mg/dL BUN/Creatinine Ratio 40.00 H (12.00-20.00) Ratio Glucose 64 L (70-110) mg/dL Plasma Lactic Acid Tyrese (0.7-2.0) mmol/L Calcium 8.0 L (8.7-10.3) mg/dL Total Bilirubin (0.2-1.3) mg/dL AST 127 H (13-35) U/L ALT 53 H (8-44) U/L Troponin I (0.000-0.034) ng/mL C-Reactive Protein 5.5 H (0.0-0.8) mg/dL Total Protein 5.1 L (6.2-8.2) g/dL Albumin 3.00 L (3.80-4.90) g/dL Albumin/Globulin Ratio 1.43 L (1.60-3.17) g/dL Amylase (30-110) U/L Lipase (23-300) U/L Rheumatoid Factor 21 H (0-15) IU/mL 02/05/21 02/05/21 02/05/21 Range/Units 17:05 17:05 17:05 RBC (3.80-5.40) m/uL Hgb (11.4-16.0) gm/dL Hct (34.0-46.0) % MCV (80.0-100.0) fL MCH (25.0-35.0) pg Lymphocytes # (1.0-4.8) k/uL Macrocytosis ESR (0-30) mm/Hr APTT 20.7 L (22.0-30.0) sec D-Dimer >34.10 H (<0.60) mg/L FEU ABG pCO2 (35-45) mmHg ABG pO2 (83-108) mmHg ABG HCO3 (21-25) mmol/L ABG O2 Saturation (94-97) % Potassium (3.5-5.1) mmol/L Chloride 111 H (98-107) mmol/L Carbon Dioxide 19 L (22-30) mmol/L Creatinine (0.6-1.5) mg/dL BUN/Creatinine Ratio (12.00-20.00) Ratio Glucose (70-110) mg/dL Plasma Lactic Acid Tyrese 3.7 H* (0.7-2.0) mmol/L Calcium 7.3 L (8.7-10.3) mg/dL Total Bilirubin 1.5 H (0.2-1.3) mg/dL AST 363 H (13-35) U/L ALT 85 H (8-44) U/L Troponin I (0.000-0.034) ng/mL C-Reactive Protein (0.0-0.8) mg/dL Total Protein 4.7 L (6.2-8.2) g/dL Albumin 2.3 L (3.80-4.90) g/dL Albumin/Globulin Ratio (1.60-3.17) g/dL Amylase (30-110) U/L Lipase (23-300) U/L Rheumatoid Factor (0-15) IU/mL 02/05/21 02/05/21 02/06/21 Range/Units 17:08 22:30 01:30 RBC (3.80-5.40) m/uL Hgb (11.4-16.0) gm/dL Hct (34.0-46.0) % MCV (80.0-100.0) fL MCH (25.0-35.0) pg Lymphocytes # (1.0-4.8) k/uL Macrocytosis ESR (0-30) mm/Hr APTT (22.0-30.0) sec D-Dimer (<0.60) mg/L FEU ABG pCO2 34 L (35-45) mmHg ABG pO2 396 H (83-108) mmHg ABG HCO3 19 L (21-25) mmol/L ABG O2 Saturation 100.0 H (94-97) % Potassium (3.5-5.1) mmol/L Chloride (98-107) mmol/L Carbon Dioxide (22-30) mmol/L Creatinine (0.6-1.5) mg/dL BUN/Creatinine Ratio (12.00-20.00) Ratio Glucose (70-110) mg/dL Plasma Lactic Acid Tyrese (0.7-2.0) mmol/L Calcium (8.7-10.3) mg/dL Total Bilirubin (0.2-1.3) mg/dL AST (13-35) U/L ALT (8-44) U/L Troponin I 0.487 H* 0.409 H* (0.000-0.034) ng/mL C-Reactive Protein (0.0-0.8) mg/dL Total Protein (6.2-8.2) g/dL Albumin (3.80-4.90) g/dL Albumin/Globulin Ratio (1.60-3.17) g/dL Amylase (30-110) U/L Lipase (23-300) U/L Rheumatoid Factor (0-15) IU/mL 02/06/21 02/06/21 02/06/21 Range/Units 05:18 06:45 06:45 RBC 2.72 L (3.80-5.40) m/uL Hgb 11.1 L (11.4-16.0) gm/dL Hct 33.8 L (34.0-46.0) % MCV 124.5 H (80.0-100.0) fL MCH 40.7 H (25.0-35.0) pg Lymphocytes # 0.9 L (1.0-4.8) k/uL Macrocytosis Marked A ESR (0-30) mm/Hr APTT (22.0-30.0) sec D-Dimer (<0.60) mg/L FEU ABG pCO2 30 L (35-45) mmHg ABG pO2 173 H (83-108) mmHg ABG HCO3 19 L (21-25) mmol/L ABG O2 Saturation 99.4 H (94-97) % Potassium 3.4 L (3.5-5.1) mmol/L Chloride 113 H (98-107) mmol/L Carbon Dioxide 18 L (22-30) mmol/L Creatinine (0.6-1.5) mg/dL BUN/Creatinine Ratio (12.00-20.00) Ratio Glucose (70-110) mg/dL Plasma Lactic Acid Tyrese (0.7-2.0) mmol/L Calcium 7.3 L (8.7-10.3) mg/dL Total Bilirubin (0.2-1.3) mg/dL AST 329 H (13-35) U/L ALT 92 H (8-44) U/L Troponin I (0.000-0.034) ng/mL C-Reactive Protein (0.0-0.8) mg/dL Total Protein 4.5 L (6.2-8.2) g/dL Albumin 2.1 L (3.80-4.90) g/dL Albumin/Globulin Ratio (1.60-3.17) g/dL Amylase 244 H (30-110) U/L Lipase 2052 H (23-300) U/L Rheumatoid Factor (0-15) IU/mL 02/06/21 Range/Units 06:45 RBC (3.80-5.40) m/uL Hgb (11.4-16.0) gm/dL Hct (34.0-46.0) % MCV (80.0-100.0) fL MCH (25.0-35.0) pg Lymphocytes # (1.0-4.8) k/uL Macrocytosis ESR (0-30) mm/Hr APTT (22.0-30.0) sec D-Dimer (<0.60) mg/L FEU ABG pCO2 (35-45) mmHg ABG pO2 (83-108) mmHg ABG HCO3 (21-25) mmol/L ABG O2 Saturation (94-97) % Potassium (3.5-5.1) mmol/L Chloride (98-107) mmol/L Carbon Dioxide (22-30) mmol/L Creatinine (0.6-1.5) mg/dL BUN/Creatinine Ratio (12.00-20.00) Ratio Glucose (70-110) mg/dL Plasma Lactic Acid Tyrese (0.7-2.0) mmol/L Calcium (8.7-10.3) mg/dL Total Bilirubin (0.2-1.3) mg/dL AST (13-35) U/L ALT (8-44) U/L Troponin I 0.265 H* (0.000-0.034) ng/mL C-Reactive Protein (0.0-0.8) mg/dL Total Protein (6.2-8.2) g/dL Albumin (3.80-4.90) g/dL Albumin/Globulin Ratio (1.60-3.17) g/dL Amylase (30-110) U/L Lipase (23-300) U/L Rheumatoid Factor (0-15) IU/mL Microbiology - Last 24 Hours (Table) 02/03/21 19:15 Gram Stain - Final Foot - Left Wound Culture - Final Methicillin resist S. aureus 02/02/21 19:15 Blood Culture - Preliminary Blood No Growth after 72 hours Assessment and Plan (1) Choledocholithiasis Narrative/Plan: 65-year-old female with multiple complaints on presentation including rash, abdominal pain and nausea and vomiting. Patient found to have elevation in her total bilirubin of 1.6 on presentation with alkaline phosphatase 44, AST 159 and ALT 55. Imaging performed in evaluation was significant for cholecystitis and gallbladder neck stone as well as evidence of a distal CBD stone on computed tomography scan of the abdomen. Currently on antibiotic therapy. She denies any history of problems with cholelithiasis in the past. Current Visit: Yes Status: Acute Code(s): K80.50 - CALCULUS OF BILE DUCT W/O CHOLANGITIS OR CHOLECYST W/O OBST SNOMED Code(s): 076637839 (2) Cholecystitis Current Visit: Yes Status: Acute Code(s): K81.9 - CHOLECYSTITIS, UNSPECIFIED SNOMED Code(s): 97326122 (3) Elevated LFTs Narrative/Plan: Improvement in total bilirubin to 1.1, elevation in AST 329, ALT 92. Patient also has elevation in her amylase and lipase, 244, 2052 respectively. Likely related to hypoperfusion due to cardiac arrest and hypotension. Current Visit: Yes Status: Acute Code(s): R79.89 - OTHER SPECIFIED ABNORMAL FINDINGS OF BLOOD CHEMISTRY SNOMED Code(s): 930621174 Plan: Supportive care Medical management per ICU informatics physician Nothing by mouth Continue to monitor CBC, and PT, amylase, lipase Status post ERCP with stone extraction and biliary stent placement Surgical services on consult Cardiology on consult Continue broad-spectrum antibiotic Thank you for allowing us to participate in the care of the patient Dr. Houser I agree with the dictator's note, documented as a scribe by Tangela Lynn.
[2021-02-06] MEDS: VANCOMYCIN 1,000 MG in SODIUM CHLORIDE 0.9% 250 ML IVPB SCH ×2 (11:05→22:29)
[2021-02-06] MEDS ORDERED: DEXAMETHASONE SOD PHOSPHATE 4 MG/ML 1 ML VIAL IV ONE (11:36)
[2021-02-06] MEDS ORDERED: ONDANSETRON 4 MG/2 ML VIAL IVP ONE (11:36)
[2021-02-06] MEDS: LACTATED RINGERS 1,000 ML IV SCH (12:20)
--- NOTE | 2021-02-06 12:25 | P.CRDCN ---
History of Present Illness Consult date: 02/06/21 History of present illness: This is a 65-year-old female who was admitted to the hospital with abdominal pain and a diagnosis of cholelithiasis and cholecystitis. She does have history of previous ischemic heart disease and stent placement. Patient underwent ERCP yesterday with removal of stone and placement of stent for the remaining stones. Patient came back to the floor and apparently was lethargic and was complaining some neck pain. Patient was given IV Dilaudid. 20 minutes later, the nurse came back to the room and found patient unresponsive. Patient was found to be in asystole. Patient was given IV epinephrine and sodium bicarbonate and a brief CPR was done for 5 minutes. Subsequently, patient developed spontaneous pulse and blood pressure. Patient was intubated and was transferred to intensive care unit. Neurologically patient was not responding With small and fixed to deep pupils. Her EKG showed sinus rhythm without any acute changes. Laboratory workup showed mildly abnormal troponin, but not consistent with acute coronary injury pattern. Her amylase and the lipase are elevated suggestive of possible pancreatitis related to gallstones and ERCP. A bedside echocardiogram showed preserved LV function with evidence of eccentric moderate to severe mitral regurgitation. Her chest x-ray yesterday showed unilateral infiltrate versus atypical edema. Today's chest x-ray shows improvement. There is no improvement in the neurological status. Neurology consult is pending at this time. Patient's urine output is low and the patient is going to get some IV fluid challenge. From Cardec standpoint we'll continue to monitor her rhythm and watch for any development of CHF. No acute interventions are recommended at this time. Review of Systems Not obtained. As per the chart Past Medical History Past Medical History: No Reported History, Myocardial Infarction ([place]) Additional Past Medical History / Comment(s): heart murmur Last Myocardial Infarction Date:: unknown History of Any Multi-Drug Resistant Organisms: None Reported Past Surgical History: Appendectomy Smoking Status: Current every day smoker Medications and Allergies Home Medications Medication Instructions Recorded Confirmed Type No Known Home Medications 02/02/21 02/02/21 History Allergies Allergy/AdvReac Type Severity Reaction Status Date / Time Penicillins Allergy Unknown Verified 02/02/21 21:01 Childhood Physical Exam Vitals: Vital Signs Temp Pulse Pulse Pulse Resp BP BP 02/06/21 12:00 98 F 71 20 95/53 03/10/21 11:00 70 20 98/57 03/10/21 10:00 72 20 94/56 02/06/21 09:00 80 32 H 124/73 02/06/21 08:00 98.1 F 98 24 102/61 02/06/21 07:00 72 20 103/58 02/06/21 06:00 71 20 100/61 02/06/21 05:00 72 21 103/61 02/06/21 04:00 84 21 108/72 02/06/21 03:00 73 22 99/60 02/06/21 02:00 74 28 H 99/59 02/06/21 01:00 74 33 H 99/77 02/06/21 00:00 97.9 F 96 10 L 95/60 02/05/21 23:00 74 25 H 96/71 02/05/21 22:57 73 29 H 96/71 02/05/21 22:00 73 42 H 94/58 02/05/21 21:00 87 27 H 92/62 02/05/21 20:00 987.4 F H 94 29 H 97/65 02/05/21 19:30 96 21 93/70 02/05/21 19:15 94 20 96/69 02/05/21 19:00 105 H 20 99/67 02/05/21 18:45 93 20 95/66 02/05/21 18:30 93 20 95/64 02/05/21 18:15 94 20 02/05/21 18:00 93 20 101/66 02/05/21 17:30 93 21 111/69 02/05/21 17:15 92 23 113/73 02/05/21 17:00 87 20 111/77 02/05/21 16:45 93 16 118/90 02/05/21 16:30 16 135/88 02/05/21 16:15 96 F L 16 02/05/21 16:12 14 02/05/21 15:05 91 17 144/77 02/05/21 14:30 93 16 02/05/21 14:15 97 16 02/05/21 14:00 98.3 F 104 H 20 BP Pulse Ox 02/06/21 12:00 100 02/06/21 11:00 100 02/06/21 10:00 100 02/06/21 09:00 100 02/06/21 08:00 100 02/06/21 07:00 99 02/06/21 06:00 100 02/06/21 05:00 100 02/06/21 04:00 02/06/21 03:00 100 02/06/21 02:00 100 02/06/21 01:00 100 02/06/21 00:00 100 02/05/21 23:00 100 02/05/21 22:57 100 02/05/21 22:00 99 02/05/21 21:00 99 02/05/21 20:00 100 02/05/21 19:30 99 02/05/21 19:15 99 02/05/21 19:00 99 02/05/21 18:45 100 02/05/21 18:30 100 02/05/21 18:15 99 02/05/21 18:00 99 02/05/21 17:30 98 02/05/21 17:15 100 02/05/21 17:00 100 02/05/21 16:45 100 02/05/21 16:30 100 02/05/21 16:15 100 02/05/21 16:12 100 02/05/21 15:05 94 L 02/05/21 14:30 151/85 96 02/05/21 14:15 150/92 98 02/05/21 14:00 101/69 97 Intake and Output 02/05/21 02/06/21 02/06/21 22:59 06:59 14:59 Intake Total 913 344 2923 Output Total 560 620 100 Balance 40 180 1300 Intake: IV 384 179 8542 Sodium Chloride 0.9% 1, 600 800 400 000 ml @ 100 mls/hr IV . Q10H [facility] Rx#:[id number] Sodium Chloride 0.9% 1, 1000 000 ml @ 999 mls/hr IV . Q1H1M [facility] Rx#:[id number] Output: Urine 560 620 100 Other: Voiding Method Indwelling Catheter Indwelling Catheter Indwelling Catheter Weight 57.4 kg GENERAL EXAM: Patient is intubated and sedated HEENT: Normocephalic. Normal reaction of pupils, equal size, normal range of extraocular motion. No erythema or exudates in the throat. NECK: No masses, no nuchal rigidity. CHEST: No chest wall deformity. LUNGS: Equal air entry with no crackles or wheeze.] HEART: S1 and S2 normal with no audible mumurs or gallops. Regular rhythm, ABDOMEN: Not distended SKIN: No rashes CENTRAL NERVOUS SYSTEM: Superiorly deviated eyes with a small pupils. The rest of the exam as per the neurology EXTREMITIES: No cyanosis, clubbing or edema. Results 02/06/21 06:45 02/06/21 06:45 Cardiac Enzymes 02/05/21 02/05/21 02/06/21 Range/Units 17:05 22:30 01:30 AST 363 H (14-36) U/L Troponin I 0.487 H* 0.409 H* (0.000-0.034) ng/mL 02/06/21 02/06/21 Range/Units 06:45 06:45 AST 329 H (14-36) U/L Troponin I 0.265 H* (0.000-0.034) ng/mL Coagulation 02/05/21 Range/Units 17:05 PT 11.1 (9.0-12.0) sec APTT 20.7 L (22.0-30.0) sec CBC 02/05/21 02/06/21 Range/Units 17:05 06:45 WBC 5.1 7.3 (3.8-10.6) k/uL RBC 2.74 L 2.72 L (3.80-5.40) m/uL Hgb 11.4 11.1 L (11.4-16.0) gm/dL Hct 34.5 33.8 L (34.0-46.0) % Plt Count 158 162 (150-450) k/uL Comprehensive Metabolic Panel 02/05/21 02/06/21 Range/Units 17:05 06:45 Sodium 141 142 (137-145) mmol/L Potassium 3.5 3.4 L (3.5-5.1) mmol/L Chloride 111 H 113 H (98-107) mmol/L Carbon Dioxide 19 L 18 L (22-30) mmol/L BUN 14 17 (7-17) mg/dL Creatinine 0.60 0.88 (0.52-1.04) mg/dL Glucose 89 91 (74-99) mg/dL Calcium 7.3 L 7.3 L (8.4-10.2) mg/dL AST 363 H 329 H (14-36) U/L ALT 85 H 92 H (4-34) U/L Alkaline Phosphatase 50 43 (38-126) U/L Total Protein 4.7 L 4.5 L (6.3-8.2) g/dL Albumin 2.3 L 2.1 L (3.5-5.0) g/dL Current Medications Generic Name Dose Route Start Last Admin Trade Name Freq PRN Reason Stop Dose Admin Hydrocodone Bitart/Acetaminophen 1 each 02/03/21 20:45 02/04/21 19:22 Hydrocodone/Apap 10-325mg 1 Each Tab PO 1 each Q4H PRN Administration Pain Chlorhexidine Gluconate 15 ml 02/05/21 21:00 02/06/21 08:28 Chlorhexidine Gluconate 15 Ml Cup MUCOUS MEM 15 ml BID [facility] Administration Enoxaparin Sodium 40 mg 02/05/21 09:00 02/06/21 08:28 Enoxaparin 40 Mg/0.4 Ml Syringe SQ 40 mg DAILY DIONI Administration Hydromorphone HCl 0.5 mg 02/02/21 20:30 02/05/21 15:03 Hydromorphone 0.5 Mg/0.5 Ml Syringe IVP 0.5 mg Q3HR PRN Administration Moderate Pain Vancomycin HCl 1,000 mg/ 250 mls @ 125 mls/hr 02/03/21 11:00 02/06/21 11:05 Sodium Chloride IVPB 125 mls/hr Q12H [facility] Administration Cefepime HCl 1 gm/ Sodium 50 mls @ 100 mls/hr 02/03/21 21:00 02/06/21 08:39 Chloride IVPB 100 mls/hr Q12HR [facility] Administration Propofol 1,000 mg/ IV Solution 100 mls @ 0 mls/hr 02/05/21 17:00 02/05/21 17:14 IV 10 mcg/kg/min .Q0M [facility] 3.266 mls/hr Administration Protocol Titrate Sodium Chloride 1,000 mls @ 100 mls/hr 02/05/21 17:00 02/06/21 05:06 Saline 0.9% IV Not Given .Q10H [facility] Lactated Ringer's 1,000 mls @ 20 mls/hr 02/06/21 11:36 Lactated Ringers IV .Q24H [facility] Lorazepam 1 mg 02/06/21 08:57 Lorazepam 2 Mg/Ml Inj IV Q4HR PRN Seizures Miscellaneous Information 0 each 02/07/21 10:00 Vancomycin Trough Due 1 Each Misc MISCELLANE 02/07/21 10:01 DIRECTED ONE Naloxone HCl 0.2 mg 02/02/21 20:30 Naloxone 0.4 Mg/Ml 1 Ml Vial IV Q2M PRN Opioid Reversal Ondansetron HCl 4 mg 02/02/21 20:30 02/04/21 23:01 Ondansetron 4 Mg/2 Ml Vial IVP 4 mg Q8HR PRN Administration Nausea And Vomiting Pantoprazole Sodium 40 mg 02/06/21 09:00 02/06/21 08:27 Pantoprazole 40 Mg/10 Ml Vial IV 40 mg DAILY DIONI Administration Intake and Output 02/05/21 02/06/21 02/06/21 22:59 06:59 14:59 Intake Total 638 235 2550 Output Total 560 620 100 Balance 40 180 1300 Intake: IV 920 362 0180 Sodium Chloride 0.9% 1, 600 800 400 000 ml @ 100 mls/hr IV . Q10H [facility] Rx#:[id number] Sodium Chloride 0.9% 1, 1000 000 ml @ 999 mls/hr IV . Q1H1M [facility] Rx#:[id number] Output: Urine 560 620 100 Other: Voiding Method Indwelling Catheter Indwelling Catheter Indwelling Catheter Weight 57.4 kg 02/06/21 06:45 02/06/21 06:45 EKG Interpretations (text) Sinus rhythm with nonspecific ST-T changes Assessment and Plan (1) Cardiopulmonary arrest Current Visit: Yes Status: Acute Code(s): I46.9 - CARDIAC ARREST, CAUSE UNSPECIFIED SNOMED Code(s): 571521768 (2) Cholecystitis Current Visit: Yes Status: Acute Code(s): K81.9 - CHOLECYSTITIS, UNSPECIFIED SNOMED Code(s): 45814383 (3) Choledocholithiasis Current Visit: Yes Status: Acute Code(s): K80.50 - CALCULUS OF BILE DUCT W/O CHOLANGITIS OR CHOLECYST W/O OBST SNOMED Code(s): 827437875 (4) Elevated LFTs Current Visit: Yes Status: Acute Code(s): R79.89 - OTHER SPECIFIED ABNORMAL FINDINGS OF BLOOD CHEMISTRY SNOMED Code(s): 493984594 (5) History of coronary artery disease Current Visit: Yes Status: Acute Code(s): Z86.79 - PERSONAL HISTORY OF OTHER DISEASES OF THE CIRCULATORY SYSTEM SNOMED Code(s): 525377265 (6) Moderate to severe mitral regurgitation Current Visit: Yes Status: Acute Code(s): I34.0 - NONRHEUMATIC MITRAL (VALVE) INSUFFICIENCY SNOMED Code(s): 00511135 Plan: Continue current management. Neurology evaluation. GI follow-up in surgical follow-up. Further recommendations will depend upon the clinical course and her long-term mental status.
[2021-02-06] MEDS ORDERED: FUROSEMIDE 10 MG/ML 10 ML VIAL IV STA (13:33)
--- NOTE | 2021-02-06 14:00 | P.PN ---
Subjective Progress Note Date: 02/06/21 Principal diagnosis: Cardiac arrest This is a 65-year-old female with history of coronary artery disease, previous RI, presented to the hospital on 02/02/2021, patient presented with multiple complaints including rash involving her hands, feet, and there was basically excoriation of the skin and sloughing of the outer layer of the skin in her hands, and in her feet around the ankles mostly in the dorsal aspect of both ankles. Patient was also complaining of intermittent episodes nausea vomiting abdominal pain. And his symptoms are at least of one week duration. This all s tarted as redness in her hands and her ankles, looked initially like sunburn, and went on to blister and slough off. CT of the abdomen was performed that it showed choledocholithiasis and cholecystitis. There was also slight elevation of her transaminases. Patient was admitted and seen by many consultants over the last 3 days including surgery/Dr. Grey gastroenterology/, and she was seen by internal medicine. She was also seen by infectious disease on consultation. Placed empirically on antibiotics in the form of Unasyn and vancomycin. Today, the patient underwent ERCP , sphincterotomy, balloon sweep of large CBD stone and placement of the plastic double-pigtail stent for r etained stone. Patient was transferred to her room without any major events. While in her room, the patient was complaining of neck pain, and she was given a dose of Dilaudid 0.5 mg. 20 minutes later, noticed return to the room and the patient was unresponsive and pulseless. Patient was coded as per ACLS protocol. Received 1 dose of epinephrine, 1 dose of bicarb, and 1 dose of Narcan. Her in itial rhythm was asystole 5 minutes later, there was return of spontaneous circulation. And blood pressure was noted to be 140/80. During the code, patient was intubated by anesthesia and her 12-lead EKG showed sinus tachycardia with frequent PACs. Chest x-ray showed adequate placement of the endotracheal tube and orogastric tube, and showed what seems to be a picture of pulmonary edema. Patient was transferred to the ICU, and I was asked to see her on consultation. Patient was on mechanical ventilation, ventilator settings were adjusted accordingly based on the ABG assist control rate of 20, tidal volume of 400, FiO2 of 100% and was later decreased to 50% and PEEP at 5. ABG showed a pO2 of 396 pCO2 of 34 pH of 7.35, this was on 100%, and patient was placed on propofol as she was not synchronous with mechanical ventilation. Right radial arterial line was placed. Patient was noted to have pinpoint pupils, was not responsive to any stimuli. Hence I recommended CT of the brain without contrast. I also recommended cardiac consultation. Continue empiric antibiotics. And she will likely need neurological evaluation to determine if the patient developed anoxic brain injury. Prognosis at this point is extremely guarded. Patient was reevaluated today on 02/06/2021, remains intubated and mechanically ventilated. Ventilator settings are assist control rate 20 volume is 400 FiO2 is 50% and PEEP of 5. ABG showed a pO2 of 173 pCO2 of 30 pH of 7.41. Hence FiO2 was decreased to 40%. Patient remains on propofol at 40 mcg/kg/m, he is on IV fluid at 100 mL/h, not requiring any pressors. Today we attempted to hold sedation and assessment of status off propofol, however the patient became extremely asynchronous with the ventilator, and she was noted by the nurse to have seizure-like activity. Had similar seizure-like activities last night, responded to Ativan. Hence Ativan was given this morning and she was placed back on propofol. Urine output is marginal, patient was given more fluid boluses but no improvement with a urine output, hence we recommended Lasix c hallenge dose. 40 mg IV push. Patient is not responding to any painful stimuli. Not arousable. Seems to be quite asynchronous with the vent, bucking the ventilator, and having intermittent gagging and coughing on the endotracheal tube. CBC is relatively normal. Electrolytes are relatively normal except for low potassium of 3.4 and low bicarb of 18. Troponin is trending down, from 0.487 initially today is 0.265. Lipase is elevated at 2051, amylase is also elevated at 244 I believe this is most likely acute pancreatitis induced by her ERCP. Objective - Vital Signs Vital signs: Vital Signs Temp 98 F 02/06/21 12:00 Pulse 71 02/06/21 12:00 Resp 20 02/06/21 12:00 BP 95/53 02/06/21 12:00 Pulse Ox 100 02/06/21 12:00 Intake & Output 02/05/21 02/06/21 02/06/21 18:59 06:59 18:59 Intake Total 1450 1200 1500 Output Total 200 980 140 Balance 3269 950 6692 Weight 57.4 kg Intake: IV 1450 1200 1500 Sodium Chloride 0.9% 1, 200 1200 500 000 ml @ 100 mls/hr IV . Q10H [facility] Rx#:[id number] Sodium Chloride 0.9% 1, 1000 000 ml @ 999 mls/hr IV . Q1H1M [facility] Rx#:[id number] Output: Urine 200 980 140 Other: Voiding Method Indwelling Catheter Indwelling Catheter Indwelling Catheter ABP, PAP, CO, CI - Last Documented Arterial Blood Pressure 112/52 - Exam GENERAL: Revealed 65-year-old female intubated mechanically ventilated unresponsive to any stimuli, continues to have pinpoint pupils, and deviation of eyes upwards HEENT: Pinpoint pupils. Dry mucous membranes, endotracheal tube and orogastric tube are intact. Endotracheal tube had to be pulled up about 2.0 cm. CARDIOVASCULAR: Tachycardic, no S3 gallop, 2/6 systolic murmur thought the precordium. PULMONARY: Symmetrical chest expansion, minimal fine crackles at the bases, no rhonchi and no wheezes. ABDOMEN: Slightly distended, nontender, no megaly, no rebound, no guarding, patient is unresponsive to any painful stimuli. MUSCULOSKELETAL: No deformities noted in the joints. EXTREMITIES: No clubbing edema or cyanosis. However multiple areas of bruising noted in the forearms, there is also sloughing of the skin and bullous lesions involving both hands especially the left hand and the dorsal aspect of both ankles. NEUROLOGICAL: Unresponsive to any painful stimuli, noted off sedation to be asynchronous with the ventilator, and questionable seizure activity noted by the nurse taking care of the patient. Spondylitic to Ativan. SKIN: bullous lesions and skin breakdown noted in multiple areas including hands specially the left hand, and involving the dorsal aspect of both ankles bilaterally. - Labs CBC & Chem 7: 02/06/21 06:45 02/06/21 06:45 Labs: Abnormal Lab Results - Last 24 Hours (Table) 02/05/21 02/05/21 02/05/21 Range/Units 17:05 17:05 17:05 RBC 2.74 L (3.80-5.40) m/uL Hgb (11.4-16.0) gm/dL Hct (34.0-46.0) % MCV 126.2 H (80.0-100.0) fL MCH 41.7 H (25.0-35.0) pg Lymphocytes # 0.8 L (1.0-4.8) k/uL Macrocytosis Marked A APTT 20.7 L (22.0-30.0) sec D-Dimer >34.10 H (<0.60) mg/L FEU ABG pCO2 (35-45) mmHg ABG pO2 (83-108) mmHg ABG HCO3 (21-25) mmol/L ABG O2 Saturation (94-97) % Potassium (3.5-5.1) mmol/L Chloride 111 H (98-107) mmol/L Carbon Dioxide 19 L (22-30) mmol/L Plasma Lactic Acid Tyrese (0.7-2.0) mmol/L Calcium 7.3 L (8.4-10.2) mg/dL Total Bilirubin 1.5 H (0.2-1.3) mg/dL AST 363 H (14-36) U/L ALT 85 H (4-34) U/L Troponin I (0.000-0.034) ng/mL Total Protein 4.7 L (6.3-8.2) g/dL Albumin 2.3 L (3.5-5.0) g/dL Amylase (30-110) U/L Lipase (23-300) U/L 02/05/21 02/05/21 02/05/21 Range/Units 17:05 17:08 22:30 RBC (3.80-5.40) m/uL Hgb (11.4-16.0) gm/dL Hct (34.0-46.0) % MCV (80.0-100.0) fL MCH (25.0-35.0) pg Lymphocytes # (1.0-4.8) k/uL Macrocytosis APTT (22.0-30.0) sec D-Dimer (<0.60) mg/L FEU ABG pCO2 34 L (35-45) mmHg ABG pO2 396 H (83-108) mmHg ABG HCO3 19 L (21-25) mmol/L ABG O2 Saturation 100.0 H (94-97) % Potassium (3.5-5.1) mmol/L Chloride (98-107) mmol/L Carbon Dioxide (22-30) mmol/L Plasma Lactic Acid Tyrese 3.7 H* (0.7-2.0) mmol/L Calcium (8.4-10.2) mg/dL Total Bilirubin (0.2-1.3) mg/dL AST (14-36) U/L ALT (4-34) U/L Troponin I 0.487 H* (0.000-0.034) ng/mL Total Protein (6.3-8.2) g/dL Albumin (3.5-5.0) g/dL Amylase (30-110) U/L Lipase (23-300) U/L 02/06/21 02/06/21 02/06/21 Range/Units 01:30 05:18 06:45 RBC (3.80-5.40) m/uL Hgb (11.4-16.0) gm/dL Hct (34.0-46.0) % MCV (80.0-100.0) fL MCH (25.0-35.0) pg Lymphocytes # (1.0-4.8) k/uL Macrocytosis APTT (22.0-30.0) sec D-Dimer (<0.60) mg/L FEU ABG pCO2 30 L (35-45) mmHg ABG pO2 173 H (83-108) mmHg ABG HCO3 19 L (21-25) mmol/L ABG O2 Saturation 99.4 H (94-97) % Potassium 3.4 L (3.5-5.1) mmol/L Chloride 113 H (98-107) mmol/L Carbon Dioxide 18 L (22-30) mmol/L Plasma Lactic Acid Tyrese (0.7-2.0) mmol/L Calcium 7.3 L (8.4-10.2) mg/dL Total Bilirubin (0.2-1.3) mg/dL AST 329 H (14-36) U/L ALT 92 H (4-34) U/L Troponin I 0.409 H* (0.000-0.034) ng/mL Total Protein 4.5 L (6.3-8.2) g/dL Albumin 2.1 L (3.5-5.0) g/dL Amylase 244 H (30-110) U/L Lipase 2052 H (23-300) U/L 02/06/21 02/06/21 Range/Units 06:45 06:45 RBC 2.72 L (3.80-5.40) m/uL Hgb 11.1 L (11.4-16.0) gm/dL Hct 33.8 L (34.0-46.0) % MCV 124.5 H (80.0-100.0) fL MCH 40.7 H (25.0-35.0) pg Lymphocytes # 0.9 L (1.0-4.8) k/uL Macrocytosis Marked A APTT (22.0-30.0) sec D-Dimer (<0.60) mg/L FEU ABG pCO2 (35-45) mmHg ABG pO2 (83-108) mmHg ABG HCO3 (21-25) mmol/L ABG O2 Saturation (94-97) % Potassium (3.5-5.1) mmol/L Chloride (98-107) mmol/L Carbon Dioxide (22-30) mmol/L Plasma Lactic Acid Tyrese (0.7-2.0) mmol/L Calcium (8.4-10.2) mg/dL Total Bilirubin (0.2-1.3) mg/dL AST (14-36) U/L ALT (4-34) U/L Troponin I 0.265 H* (0.000-0.034) ng/mL Total Protein (6.3-8.2) g/dL Albumin (3.5-5.0) g/dL Amylase (30-110) U/L Lipase (23-300) U/L Microbiology - Last 24 Hours (Table) 02/03/21 19:15 Gram Stain - Final Foot - Left Wound Culture - Final Methicillin resist S. aureus 02/02/21 19:15 Blood Culture - Preliminary Blood No Growth after 72 hours Assessment and Plan Assessment: Impression: Cardiac arrest, exact etiology is not clear, required CPR for at least 5 minutes. Acute hypoxic respiratory failure secondary to cardiac arrest requiring intubation and mechanical ventilation. Extensive cellulitis and bullous lesions involving extremities, possible sepsis Choledocholithiasis and acute cholecystitis, status post ERCP Elevated liver enzymes secondary to above. History of depression and anxiety. History of nicotine use and tobacco dependence syndrome. Suspect anoxic brain injury secondary to cardiac arrest. Acute pancreatitis, possibly induced by ERCP, expected. Although this could also be related to her underlying choledocholithiasis. Possible new onset seizures, secondary to anoxic brain injury. Elevated d-dimer, however the patient had negative venous Doppler of the lower extremities. And her ABG does not truly reflect a picture of acute pulmonary embolism. Hence we'll try to avoid heparin for now but the patient will continue on DVT prophylaxis. Recommendation: Neurologic consultation. Continue propofol since the patient could not tolerate coming off sedation. Continue ventilatory support. adjustment was made on the ventilator, FiO2 was decreased down to 40%. Continue antibiotics. As per infectious disease on the case. Consider enteral feeding on this patient. However will hold for now mostly because of her acute pancreatitis. CT of the brain is nondiagnostic. Echocardiogram with Doppler. Hemodynamic support if necessary. We'll continue to follow. Prognosis is extremely poor and guarded. Critical care time is over 30 minutes. Time with Patient: Greater than 30
[2021-02-06 14:16] LABS: C-ANCA <1:20 Titer (<1:20)
[2021-02-06] MEDS ORDERED: Potassium Replacement Protocol 1 EACH MISC MISCELLANE PRN (15:06)
--- NOTE | 2021-02-06 15:10 | EEG ---
ELECTROENCEPHALOGRAM REPORT DATE OF SERVICE: 02/06/2021 PREAMBLE: This is a 65-year-old female with cardiac arrest. Patient in EEG FINDINGS: This is a 21 channel portable EEG recording in a patient utilizing 10/20 international system with referential and bipolar montages. The background consists of poorly developed and regulated, mixed frequencies of low-voltage theta and some delta activity seen. There is intermittent burst suppressed pattern also seen, with moderate voltage and delta for one second followed by suppression for 1-2 seconds. Some left hemispheric spikes were seen, which at times appears myogenic, other times appears somewhat epileptic in nature. Sometimes these became more generalized. No motor activity was noted on the redo part of the study. Different stages of sleep were not seen. Photic driving response was not seen. EKG channel showed no arrhythmia. IMPRESSION: This is an abnormal EEG due to: 1. Background slowing, with some intermittent burst suppressed pattern. This is suggestive of generalized cerebral dysfunction as can be seen with history of cardiac arrest or from severe metabolic encephalopathy. 2. Sharp spikes are seen in the left hemispheric region, which at times becomes generalized. These at times appears artifactual from myogenic, but other times have some epileptiform quality as well. Clinical correlation and followup EEG are recommended. No electrographic seizures were recorded. No status epilepticus. MMODL / IJN: [id number] / [facility]ALS[facility]
--- NOTE | 2021-02-06 15:25 | P.PN ---
Subjective Progress Note Date: 02/06/21 65-year-old pleasant female came in with the complaints of nausea vomiting abdominal pain abdominal pain is epigastric area moderate severity associated nausea vomiting. Patient is found to have choledocholithiasis with elevated liver enzymes. Patient will undergo ERCP today and will need cholecystectomy later. Patient also has multiple bullae or that ruptured in bilateral lower extremities with possible surrounding cellulitis. Infectious disease was consulted for wound care and possible need of antibiotics and dermatology was consulted as well with concerns of pemphigus patient has these bullae started about a week ago patient is presently on vancomycin and cefepime 02/05/2021 Patient is seen and evaluated and follow-up currently awaiting to undergo ERCP with GI today. Infectious disease following and patient is maintained on IV antibiotic therapy. Consult for dermatology was placed although pending at this time. Discussed with nursing staff about [facility] Patient has multiple wounds and bullae present on bilateral hands and feet. Potassium is improved today at 4.1 with a sodium of 142 current creatinine is 0.4. Liver functions trending down. 02/06/2021 Patient is seen and evaluated and is currently being closely monitored in the ICU as patient was found to be unresponsive and pulseless and CODE BLUE was called. ACLS protocol performed with CPR and patient did receive a dose of appendectomy along with bicarb and Narcan as she was recently given a dose of Dilaudid prior to being found unresponsive. ROSC was obtained and patient was intubated by IMAGE ASSEMBLER and placed on mechanical ventilation and is currently in the ICU with an extremely poor and guarded prognosis. Patient is status post ERCP with stone removal although retained stones with stent placement with GI. Patient is also maintained on IV antibiotics and infectious disease is following. R D Engineer along with cardiology and neurology consult placed. Review of systems: unable to obtain as patient is on a mechanical vent and sedated All medications have been reviewed Objective - Vital Signs Vital signs: Vital Signs Temp 98.1 F 02/06/21 08:00 Pulse 98 02/06/21 08:00 Resp 24 02/06/21 08:00 BP 102/61 02/06/21 08:00 Pulse Ox 100 02/06/21 08:00 Intake & Output 02/05/21 02/06/21 02/06/21 18:59 06:59 18:59 Intake Total 1450 1200 200 Output Total 200 980 65 Balance 1250 220 135 Weight 57.4 kg Intake: IV 1450 1200 200 Sodium Chloride 0.9% 1, 200 1200 200 000 ml @ 100 mls/hr IV . Q10H [facility] Rx#:[id number] Output: Urine 200 980 65 Other: Voiding Method Indwelling Catheter Indwelling Catheter Indwelling Catheter ABP, PAP, CO, CI - Last Documented Arterial Blood Pressure 112/52 - Exam GENERAL: The patient is currently intubated and sedated status post cardiac arrest with ROSC obtained HEENT: Pupils are round and equally reacting to light. EOMI. No scleral icterus. No conjunctival pallor. Normocephalic, atraumatic. No pharyngeal erythema. No thyromegaly. CARDIOVASCULAR: S1 and S2 present. No murmurs, rubs, or gallops. PULMONARY: Chest is clear to auscultation, no wheezing or crackles. ABDOMEN: Soft, Nontender No palpable organomegaly. MUSCULOSKELETAL: No joint swelling or deformity. EXTREMITIES: No cyanosis, clubbing, or pedal edema. NEUROLOGICAL: Gross neurological examination did not reveal any focal deficits. SKIN: Multiple bullous lesions noted of upper extremities, bilateral hands, underneath breasts, lower extremities and bilateral feet with redness - Labs CBC & Chem 7: 02/06/21 06:45 02/06/21 06:45 Labs: Abnormal Lab Results - Last 24 Hours (Table) 02/05/21 02/05/21 02/05/21 Range/Units 06:55 06:55 17:05 RBC 2.74 L (3.80-5.40) m/uL Hgb (11.4-16.0) gm/dL Hct (34.0-46.0) % MCV 126.2 H (80.0-100.0) fL MCH 41.7 H (25.0-35.0) pg Lymphocytes # 0.8 L (1.0-4.8) k/uL Macrocytosis Marked A ESR 61 H (0-30) mm/Hr APTT (22.0-30.0) sec D-Dimer (<0.60) mg/L FEU ABG pCO2 (35-45) mmHg ABG pO2 (83-108) mmHg ABG HCO3 (21-25) mmol/L ABG O2 Saturation (94-97) % Potassium (3.5-5.1) mmol/L Chloride (98-107) mmol/L Carbon Dioxide (22-30) mmol/L Creatinine 0.4 L (0.6-1.5) mg/dL BUN/Creatinine Ratio 40.00 H (12.00-20.00) Ratio Glucose 64 L (70-110) mg/dL Plasma Lactic Acid Tyrese (0.7-2.0) mmol/L Calcium 8.0 L (8.7-10.3) mg/dL Total Bilirubin (0.2-1.3) mg/dL AST 127 H (13-35) U/L ALT 53 H (8-44) U/L Troponin I (0.000-0.034) ng/mL C-Reactive Protein 5.5 H (0.0-0.8) mg/dL Total Protein 5.1 L (6.2-8.2) g/dL Albumin 3.00 L (3.80-4.90) g/dL Albumin/Globulin Ratio 1.43 L (1.60-3.17) g/dL Amylase (30-110) U/L Lipase (23-300) U/L Rheumatoid Factor 21 H (0-15) IU/mL 02/05/21 02/05/21 02/05/21 Range/Units 17:05 17:05 17:05 RBC (3.80-5.40) m/uL Hgb (11.4-16.0) gm/dL Hct (34.0-46.0) % MCV (80.0-100.0) fL MCH (25.0-35.0) pg Lymphocytes # (1.0-4.8) k/uL Macrocytosis ESR (0-30) mm/Hr APTT 20.7 L (22.0-30.0) sec D-Dimer >34.10 H (<0.60) mg/L FEU ABG pCO2 (35-45) mmHg ABG pO2 (83-108) mmHg ABG HCO3 (21-25) mmol/L ABG O2 Saturation (94-97) % Potassium (3.5-5.1) mmol/L Chloride 111 H (98-107) mmol/L Carbon Dioxide 19 L (22-30) mmol/L Creatinine (0.6-1.5) mg/dL BUN/Creatinine Ratio (12.00-20.00) Ratio Glucose (70-110) mg/dL Plasma Lactic Acid Tyrese 3.7 H* (0.7-2.0) mmol/L Calcium 7.3 L (8.7-10.3) mg/dL Total Bilirubin 1.5 H (0.2-1.3) mg/dL AST 363 H (13-35) U/L ALT 85 H (8-44) U/L Troponin I (0.000-0.034) ng/mL C-Reactive Protein (0.0-0.8) mg/dL Total Protein 4.7 L (6.2-8.2) g/dL Albumin 2.3 L (3.80-4.90) g/dL Albumin/Globulin Ratio (1.60-3.17) g/dL Amylase (30-110) U/L Lipase (23-300) U/L Rheumatoid Factor (0-15) IU/mL 02/05/21 02/05/21 02/06/21 Range/Units 17:08 22:30 01:30 RBC (3.80-5.40) m/uL Hgb (11.4-16.0) gm/dL Hct (34.0-46.0) % MCV (80.0-100.0) fL MCH (25.0-35.0) pg Lymphocytes # (1.0-4.8) k/uL Macrocytosis ESR (0-30) mm/Hr APTT (22.0-30.0) sec D-Dimer (<0.60) mg/L FEU ABG pCO2 34 L (35-45) mmHg ABG pO2 396 H (83-108) mmHg ABG HCO3 19 L (21-25) mmol/L ABG O2 Saturation 100.0 H (94-97) % Potassium (3.5-5.1) mmol/L Chloride (98-107) mmol/L Carbon Dioxide (22-30) mmol/L Creatinine (0.6-1.5) mg/dL BUN/Creatinine Ratio (12.00-20.00) Ratio Glucose (70-110) mg/dL Plasma Lactic Acid Tyrese (0.7-2.0) mmol/L Calcium (8.7-10.3) mg/dL Total Bilirubin (0.2-1.3) mg/dL AST (13-35) U/L ALT (8-44) U/L Troponin I 0.487 H* 0.409 H* (0.000-0.034) ng/mL C-Reactive Protein (0.0-0.8) mg/dL Total Protein (6.2-8.2) g/dL Albumin (3.80-4.90) g/dL Albumin/Globulin Ratio (1.60-3.17) g/dL Amylase (30-110) U/L Lipase (23-300) U/L Rheumatoid Factor (0-15) IU/mL 02/06/21 02/06/21 02/06/21 Range/Units 05:18 06:45 06:45 RBC 2.72 L (3.80-5.40) m/uL Hgb 11.1 L (11.4-16.0) gm/dL Hct 33.8 L (34.0-46.0) % MCV 124.5 H (80.0-100.0) fL MCH 40.7 H (25.0-35.0) pg Lymphocytes # 0.9 L (1.0-4.8) k/uL Macrocytosis Marked A ESR (0-30) mm/Hr APTT (22.0-30.0) sec D-Dimer (<0.60) mg/L FEU ABG pCO2 30 L (35-45) mmHg ABG pO2 173 H (83-108) mmHg ABG HCO3 19 L (21-25) mmol/L ABG O2 Saturation 99.4 H (94-97) % Potassium 3.4 L (3.5-5.1) mmol/L Chloride 113 H (98-107) mmol/L Carbon Dioxide 18 L (22-30) mmol/L Creatinine (0.6-1.5) mg/dL BUN/Creatinine Ratio (12.00-20.00) Ratio Glucose (70-110) mg/dL Plasma Lactic Acid Tyrese (0.7-2.0) mmol/L Calcium 7.3 L (8.7-10.3) mg/dL Total Bilirubin (0.2-1.3) mg/dL AST 329 H (13-35) U/L ALT 92 H (8-44) U/L Troponin I (0.000-0.034) ng/mL C-Reactive Protein (0.0-0.8) mg/dL Total Protein 4.5 L (6.2-8.2) g/dL Albumin 2.1 L (3.80-4.90) g/dL Albumin/Globulin Ratio (1.60-3.17) g/dL Amylase 244 H (30-110) U/L Lipase 2052 H (23-300) U/L Rheumatoid Factor (0-15) IU/mL 02/06/21 Range/Units 06:45 RBC (3.80-5.40) m/uL Hgb (11.4-16.0) gm/dL Hct (34.0-46.0) % MCV (80.0-100.0) fL MCH (25.0-35.0) pg Lymphocytes # (1.0-4.8) k/uL Macrocytosis ESR (0-30) mm/Hr APTT (22.0-30.0) sec D-Dimer (<0.60) mg/L FEU ABG pCO2 (35-45) mmHg ABG pO2 (83-108) mmHg ABG HCO3 (21-25) mmol/L ABG O2 Saturation (94-97) % Potassium (3.5-5.1) mmol/L Chloride (98-107) mmol/L Carbon Dioxide (22-30) mmol/L Creatinine (0.6-1.5) mg/dL BUN/Creatinine Ratio (12.00-20.00) Ratio Glucose (70-110) mg/dL Plasma Lactic Acid Tyrese (0.7-2.0) mmol/L Calcium (8.7-10.3) mg/dL Total Bilirubin (0.2-1.3) mg/dL AST (13-35) U/L ALT (8-44) U/L Troponin I 0.265 H* (0.000-0.034) ng/mL C-Reactive Protein (0.0-0.8) mg/dL Total Protein (6.2-8.2) g/dL Albumin (3.80-4.90) g/dL Albumin/Globulin Ratio (1.60-3.17) g/dL Amylase (30-110) U/L Lipase (23-300) U/L Rheumatoid Factor (0-15) IU/mL Microbiology - Last 24 Hours (Table) 02/02/21 19:15 Blood Culture - Preliminary Blood No Growth after 72 hours 02/03/21 19:15 Gram Stain - Preliminary Foot - Left Wound Culture - Preliminary Presumptive MRSA Assessment and Plan Assessment: -Choledocholithiasis: Patient recently underwent ERCP with stone removal and stent placement with GI and surgery following for possible cholecystectomy in the near future -Status post cardiac arrest with ROSC obtained after ACLS and CPR protocol -Acute hypoxic respiratory failure secondary to above requiring mechanical ventilation and intubation -Elevated liver enzymes secondary to assessment #1 -Possible cellulitis will need wound care for ruptured bullae. Infectious disease following and patient is maintained on cefepime and vancomycin -Possibility of cholecystitis -Depression and anxiety -Nicotine use: Counseling was provided -Hypovolemic hyponatremia improved after IV hydration -DVT prophylaxis Lovenox Plan: Continue with current IV antibiotics. Continue to closely monitor in the ICU and neurology consulted along with cardiology status post cardiac arrest with ROSC obtained after CPR and ACLS was performed. Dermatology office contacted and updated on consult. Infectious disease is following. Patient recently underwent ERCP with GI showing multiple filling defects in the distal CBD suggestive of stones. Patient underwent an 8 mm sphincterotomy, balloon sweep a large CBD stone and multiple other stones that could not be removed and a pigtail stent was placed. Neurology consulted and pending at this time. Will await neurology report to assess for possible anoxic brain injury and treatments moving forward. Apparently the sister makes the decisions on her care although daughter has arrived from out of town and will discuss current situation. Prognosis is extremely poor and guarded
[2021-02-06] MEDS: levETIRAcetam IV 750 MG in SODIUM CHLORIDE 0.9% 100 ML IVPB SCH (15:51)
[2021-02-06] MEDS: POTASSIUM CHLORIDE 20 MEQ in WATER FOR INJECTION 1 100ML.BAG IVPB SCH ×2 (15:53→18:07)
[2021-02-06 18:14] LABS: Appearance,Urine Clear (Clear); Bacteria,Urine Rare /hpf; Bilirubin,Urine Negative (Negative); Blood,Urine Small (Negative); Color,Urine Colorless; Glucose,Urine (UA) Negative (Negative); Hyaline Casts,Urine 3 /lpf (0-2); Ketones,Urine Negative (Negative); Leukocyte Esterase,Urine Negative (Negative); Mucus,Urine Rare /hpf; Nitrite,Urine Negative (Negative); Protein,Urine Negative (Negative); RBC,Urine 2 /hpf (0-5); Specific Gravity,Urine 1.006 (1.001-1.035); Squamous Epithelial Cell,Urine <1 /hpf (0-4); Urobilinogen,Urine <2.0 mg/dL (<2.0); WBC,Urine 1 /hpf (0-5)
--- NOTE | 2021-02-06 20:00 | ECHOF ---
Referral Reason:cardiac arrest MEASUREMENTS -------- HEIGHT: 149.9 cm WEIGHT: 54.4 kg BP: 103/61 RVIDd: 2.5 cm (< 3.3) IVSd: 1.1 cm (0.6 - 1.1) LVIDd: 5.0 cm (3.9 - 5.3) LVPWd: 1.0 cm (0.6 - 1.1) IVSs: 1.4 cm LVIDs: 3.9 cm LVPWs: 1.6 cm LAESV Index (A-L): 35.84 ml/m Ao Diam: 2.7 cm (2.0 - 3.7) AV Cusp: 1.8 cm (1.5 - 2.6) MV EXCURSION: 12.108 mm (> 18.000) MV EF SLOPE: 89 mm/s (70 - 150) EPSS: 0.5 cm MV E Qasim: 0.91 m/s MV DecT: 114 ms MV A Qasim: 1.32 m/s MV E/A Ratio: 0.69 AR PHT: 308 ms RAP: 5.00 mmHg RVSP: 28.01 mmHg FINDINGS -------- Sinus rhythm. This was a technically adequate study. Pt. on a vent. Cardiac Arrest. The left ventricular size is normal. Left ventricular wall thickness is normal. Overall left vent ricular systolic function is mild-moderately impaired with, an EF between 40 - 45 %. Basal inferior LV wall motion is hypokinetic. Basal inferoseptal LV wall motion is hypokinetic. Mid inferior LV wall motion is hypokinetic. Mid inferoseptal LV wall motion is hypokinetic. The right ventricle is normal in size. LA is moderately dilated 34-39 ml/m2 The right atrial size is normal. Interatrial and interventricular septum intact. There is mild aortic valve sclerosis. There is moderate aortic regurgitation. There is no evidenc e of aortic stenosis. Moderate mitral annular calcification present. Tfmsepvj-fk-[id number] mitral regurgitation is present. Mild tricuspid regurgitation present. Right ventricular systolic pressure is normal at < 35 mmHg. The right ventricular systolic pressure, as measured by Doppler, is 28.01mmHg. There is no pulmonic regurgitation present. The aortic root size is normal. IVC Not well visulized. There is no pericardial effusion. CONCLUSIONS -------- 1. Left ventricular wall thickness is normal. 2. Overall left ventricular systolic function is mild-moderately impaired with, an EF between 40 - 45 %. 3. Basal inferior LV wall motion is hypokinetic. 4. Basal inferoseptal LV wall motion is hypokinetic. 5. Mid inferior LV wall motion is hypokinetic. 6. Mid inferoseptal LV wall motion is hypokinetic. 7. LA is moderately dilated 34-39 ml/m2 8. There is mild aortic valve sclerosis. 9. There is moderate aortic regurgitation. 10. Moderate mitral annular calcification present. 11. Ypceiftt-aw-ezqchn mitral regurgitation is present. 12. Mild tricuspid regurgitation present. 13. There is no pericardial effusion. FLOOR PERSON: Bhavya Kaufman RDCS
--- NOTE | 2021-02-06 20:18 | P.CNNES ---
History of Present Illness Consult date: 02/06/21 Requesting physician: Prudencio Lowry Reason for Consult: Cardiac arrest, anoxic brain injury History of Present Illness: Patient is a 65-year-old female who came to the hospital on 02/02/2021 by ambulance for a rash, hand and feet swelling, nausea vomiting and abdominal pain. Symptoms have been present for 7 days. Also had abdominal distention. Patient was diagnosed with serous bullosa of the skin, choledocholithiasis, cholecystitis. Patient underwent ERCP with cholangiogram and sphincterectomy, balloon sweep productive of large CBD stone and placement of plastic double pigtail stents for retained stone on 02/05/2021. After returning from ERCP, patient was lethargic. Patient was having pain. Patient was given Dilaudid 0.5 mg IV. About 20 minutes later, when the nurse walked back to the room, found the patient unresponsive and pulseless. CPR was initiated. Patient received 1 dose of epinephrine and a dose of IV bicarbonate. Patient also received 1 dose of Narcan. After 1 round of CPR, patient has return of spontaneous circulation. CPR was conducted for at least 5 minutes. Blood pressure 140/80. She was intubated by anesthesia during the code. EKG showed sinus tachycardia with frequent PACs. Patient's cardiac enzymes have gone up to 0.0487, sodium is normal potassium 3.4 on normal renal functions. AST is 92, ALT 43. Lipase is 2052, amylase 244 both elevated. Hemoglobin 11.1. CT head yesterday at 6 PM showed no acute intracranial hemorrhage or midline shift. There is mild diffuse age-related cerebral atrophy and mild to moderate chronic small vessel ischemic change. 2-D echo showed left-ventricular wall thickness is normal. Left ventricle systolic function is mild to moderately impaired with EF is 40-45%. Basal inferior, basal inferior septal, mid inferior, mid inferior septal left-ventricular wall motions are hypokinetic. Amylase moderately dilated. Moderate to severe MR. Cardiology also on board. Patient was showing myoclonic type jerk movement subsequently. Patient has been on propofol 50 g. When the dose is decreased, the seizure-like activity reappears. Please refer to examination below. Review of Systems ROS unobtainable: due to endotracheal tube, due to mental status Past Medical History Past Medical History: No Reported History, Myocardial Infarction (MD) Additional Past Medical History / Comment(s): heart murmur Last Myocardial Infarction Date:: unknown History of Any Multi-Drug Resistant Organisms: None Reported Past Surgical History: Appendectomy Smoking Status: Current every day smoker Medications and Allergies Home Medications Medication Instructions Recorded Confirmed Type No Known Home Medications 02/02/21 02/02/21 History Allergies Allergy/AdvReac Type Severity Reaction Status Date / Time Penicillins Allergy Unknown Verified 02/02/21 21:01 Childhood Physical Examination - Vital Signs Vital Signs: Vital Signs Temp Pulse Pulse Pulse Resp BP BP 02/06/21 08:00 98.1 F 98 24 102/61 02/06/21 07:00 72 20 103/58 02/06/21 06:00 71 20 100/61 02/06/21 05:00 72 21 103/61 02/06/21 04:00 84 21 108/72 02/06/21 03:00 73 22 99/60 02/06/21 02:00 74 28 H 99/59 02/06/21 01:00 74 33 H 99/77 02/06/21 00:00 97.9 F 96 10 L 95/60 02/05/21 23:00 74 25 H 96/71 02/05/21 22:57 73 29 H 96/71 02/05/21 22:00 73 42 H 94/58 02/05/21 21:00 87 27 H 92/62 02/05/21 20:00 987.4 F H 94 29 H 97/65 02/05/21 19:30 96 21 93/70 02/05/21 19:15 94 20 96/69 02/05/21 19:00 105 H 20 99/67 02/05/21 18:45 93 20 95/66 02/05/21 18:30 93 20 95/64 02/05/21 18:15 94 20 02/05/21 18:00 93 20 101/66 02/05/21 17:30 93 21 111/69 02/05/21 17:15 92 23 113/73 02/05/21 17:00 87 20 111/77 02/05/21 16:45 93 16 118/90 02/05/21 16:30 16 135/88 02/05/21 16:15 96 F L 16 02/05/21 16:12 14 02/05/21 15:05 91 17 144/77 02/05/21 14:30 93 16 02/05/21 14:15 97 16 02/05/21 14:00 98.3 F 104 H 20 02/05/21 10:42 98 F 106 H 18 149/77 BP Pulse Ox 02/06/21 08:00 100 02/06/21 07:00 99 02/06/21 06:00 100 02/06/21 05:00 100 02/06/21 04:00 02/06/21 03:00 100 02/06/21 02:00 100 02/06/21 01:00 100 02/06/21 00:00 100 02/05/21 23:00 100 02/05/21 22:57 100 02/05/21 22:00 99 02/05/21 21:00 99 02/05/21 20:00 100 02/05/21 19:30 99 02/05/21 19:15 99 02/05/21 19:00 99 02/05/21 18:45 100 02/05/21 18:30 100 02/05/21 18:15 99 02/05/21 18:00 99 02/05/21 17:30 98 02/05/21 17:15 100 02/05/21 17:00 100 02/05/21 16:45 100 02/05/21 16:30 100 02/05/21 16:15 100 02/05/21 16:12 100 02/05/21 15:05 94 L 02/05/21 14:30 151/85 96 02/05/21 14:15 150/92 98 02/05/21 14:00 101/69 97 02/05/21 10:42 94 L Intake and Output 02/05/21 02/06/21 02/06/21 22:59 06:59 14:59 Intake Total 600 800 200 Output Total 560 620 65 Balance 40 180 135 Intake: IV 600 800 200 Sodium Chloride 0.9% 1, 600 800 200 000 ml @ 100 mls/hr IV . Q10H [facility] Rx#:[id number] Output: Urine 560 620 65 Other: Voiding Method Indwelling Catheter Indwelling Catheter Indwelling Catheter Weight 57.4 kg On examination patient is an elderly female, who appears older than her stated age. Patient is comatose, not responding to any painful stimuli. Patient is on propofol 50 g running. No obvious seizure-like activity is noticed at this time. Patient pupils are round and reacting. Oculocephalics are absent. Corneals are present. Patient is having cough and gag reflexes. Face cannot be assessed because of intubation. Tone is equal. Patient has significant peripheral edema, bullous lesions involving the skin. She has ecchymosis, bruises. Reflexes are absent and plantars are flat. Cerebellar functions, sensations could not be tested. Results - Laboratory Findings CBC and BMP: 02/06/21 06:45 02/06/21 06:45 Abnormal Lab Findings: Abnormal Labs 02/02/21 02/02/21 02/02/21 09:54 18:50 18:50 RBC 3.28 L Hgb Hct MCV 118.2 H MCH 40.7 H Plt Count Lymphocytes # Nucleated RBCs Macrocytosis Marked A ESR APTT D-Dimer ABG pCO2 ABG pO2 ABG HCO3 ABG O2 Saturation Sodium 129 L Potassium Chloride 95 L Carbon Dioxide 21 L Creatinine BUN/Creatinine Ratio Glucose Plasma Lactic Acid Tyrese Calcium 8.1 L Total Bilirubin 1.4 H Conjugated Bilirubin AST 164 H ALT 59 H Troponin I C-Reactive Protein Total Protein 6.2 L Albumin 3.2 L Albumin/Globulin Ratio Amylase Lipase Procalcitonin Urine Appearance Cloudy H Urine Protein 1+ H Urine Ketones Trace H Urine Blood Moderate H Urine Bilirubin 1+ H Ur Leukocyte Esterase Large H Urine RBC 30 H Urine WBC 62 H Ur Squamous Epith Cells 5 H Amorphous Sediment Occasional H Urine Bacteria Rare H Hyaline Casts 3 H Urine Mucus Rare H Rheumatoid Factor 02/02/21 02/02/21 02/03/21 18:50 23:34 03:51 RBC 3.31 L Hgb Hct MCV 121.4 H MCH 39.1 H Plt Count 149 L Lymphocytes # Nucleated RBCs 4 H Macrocytosis Marked A ESR APTT D-Dimer ABG pCO2 ABG pO2 ABG HCO3 ABG O2 Saturation Sodium Potassium Chloride Carbon Dioxide Creatinine BUN/Creatinine Ratio Glucose Plasma Lactic Acid Tyrese 4.5 H* 2.3 H* Calcium Total Bilirubin Conjugated Bilirubin AST ALT Troponin I C-Reactive Protein Total Protein Albumin Albumin/Globulin Ratio Amylase Lipase Procalcitonin Urine Appearance Urine Protein Urine Ketones Urine Blood Urine Bilirubin Ur Leukocyte Esterase Urine RBC Urine WBC Ur Squamous Epith Cells Amorphous Sediment Urine Bacteria Hyaline Casts Urine Mucus Rheumatoid Factor 02/03/21 02/04/21 02/04/21 03:51 06:20 06:20 RBC Hgb Hct MCV MCH Plt Count Lymphocytes # Nucleated RBCs Macrocytosis ESR APTT D-Dimer ABG pCO2 ABG pO2 ABG HCO3 ABG O2 Saturation Sodium 129 L Potassium Chloride Carbon Dioxide Creatinine 0.45 L 0.5 L BUN/Creatinine Ratio 34.00 H Glucose 64 L Plasma Lactic Acid Tyrese Calcium 7.5 L 7.9 L Total Bilirubin 1.6 H Conjugated Bilirubin 0.80 H AST 154 H 132 H ALT 55 H 54 H Troponin I C-Reactive Protein Total Protein 6.0 L 5.5 L Albumin 2.9 L 3.30 L Albumin/Globulin Ratio 1.50 L Amylase Lipase Procalcitonin 0.28 H Urine Appearance Urine Protein Urine Ketones Urine Blood Urine Bilirubin Ur Leukocyte Esterase Urine RBC Urine WBC Ur Squamous Epith Cells Amorphous Sediment Urine Bacteria Hyaline Casts Urine Mucus Rheumatoid Factor 02/04/21 02/04/21 02/05/21 10:31 10:31 06:55 RBC 2.93 L Hgb Hct MCV 126.0 H MCH 41.1 H Plt Count Lymphocytes # Nucleated RBCs Macrocytosis Marked A ESR APTT D-Dimer ABG pCO2 ABG pO2 ABG HCO3 ABG O2 Saturation Sodium 136 L Potassium 5.2 H Chloride Carbon Dioxide 21 L Creatinine 0.45 L 0.4 L BUN/Creatinine Ratio 40.00 H Glucose 72 L 64 L Plasma Lactic Acid Tyrese Calcium 7.8 L 8.0 L Total Bilirubin 1.5 H Conjugated Bilirubin AST 145 H 127 H ALT 51 H 53 H Troponin I C-Reactive Protein 5.5 H Total Protein 5.9 L 5.1 L Albumin 2.8 L 3.00 L Albumin/Globulin Ratio 1.43 L Amylase Lipase Procalcitonin Urine Appearance Urine Protein Urine Ketones Urine Blood Urine Bilirubin Ur Leukocyte Esterase Urine RBC Urine WBC Ur Squamous Epith Cells Amorphous Sediment Urine Bacteria Hyaline Casts Urine Mucus Rheumatoid Factor 21 H 02/05/21 02/05/21 02/05/21 06:55 17:05 17:05 RBC 2.74 L Hgb Hct MCV 126.2 H MCH 41.7 H Plt Count Lymphocytes # 0.8 L Nucleated RBCs Macrocytosis Marked A ESR 61 H APTT 20.7 L D-Dimer >34.10 H ABG pCO2 ABG pO2 ABG HCO3 ABG O2 Saturation Sodium Potassium Chloride Carbon Dioxide Creatinine BUN/Creatinine Ratio Glucose Plasma Lactic Acid Tyrese Calcium Total Bilirubin Conjugated Bilirubin AST ALT Troponin I C-Reactive Protein Total Protein Albumin Albumin/Globulin Ratio Amylase Lipase Procalcitonin Urine Appearance Urine Protein Urine Ketones Urine Blood Urine Bilirubin Ur Leukocyte Esterase Urine RBC Urine WBC Ur Squamous Epith Cells Amorphous Sediment Urine Bacteria Hyaline Casts Urine Mucus Rheumatoid Factor 02/05/21 02/05/21 02/05/21 17:05 17:05 17:08 RBC Hgb Hct MCV MCH Plt Count Lymphocytes # Nucleated RBCs Macrocytosis ESR APTT D-Dimer ABG pCO2 34 L ABG pO2 396 H ABG HCO3 19 L ABG O2 Saturation 100.0 H Sodium Potassium Chloride 111 H Carbon Dioxide 19 L Creatinine BUN/Creatinine Ratio Glucose Plasma Lactic Acid Tyrese 3.7 H* Calcium 7.3 L Total Bilirubin 1.5 H Conjugated Bilirubin AST 363 H ALT 85 H Troponin I C-Reactive Protein Total Protein 4.7 L Albumin 2.3 L Albumin/Globulin Ratio Amylase Lipase Procalcitonin Urine Appearance Urine Protein Urine Ketones Urine Blood Urine Bilirubin Ur Leukocyte Esterase Urine RBC Urine WBC Ur Squamous Epith Cells Amorphous Sediment Urine Bacteria Hyaline Casts Urine Mucus Rheumatoid Factor 02/05/21 02/06/21 02/06/21 22:30 01:30 05:18 RBC Hgb Hct MCV MCH Plt Count Lymphocytes # Nucleated RBCs Macrocytosis ESR APTT D-Dimer ABG pCO2 30 L ABG pO2 173 H ABG HCO3 19 L ABG O2 Saturation 99.4 H Sodium Potassium Chloride Carbon Dioxide Creatinine BUN/Creatinine Ratio Glucose Plasma Lactic Acid Tyrese Calcium Total Bilirubin Conjugated Bilirubin AST ALT Troponin I 0.487 H* 0.409 H* C-Reactive Protein Total Protein Albumin Albumin/Globulin Ratio Amylase Lipase Procalcitonin Urine Appearance Urine Protein Urine Ketones Urine Blood Urine Bilirubin Ur Leukocyte Esterase Urine RBC Urine WBC Ur Squamous Epith Cells Amorphous Sediment Urine Bacteria Hyaline Casts Urine Mucus Rheumatoid Factor 02/06/21 02/06/21 02/06/21 06:45 06:45 06:45 RBC 2.72 L Hgb 11.1 L Hct 33.8 L MCV 124.5 H MCH 40.7 H Plt Count Lymphocytes # 0.9 L Nucleated RBCs Macrocytosis Marked A ESR APTT D-Dimer ABG pCO2 ABG pO2 ABG HCO3 ABG O2 Saturation Sodium Potassium 3.4 L Chloride 113 H Carbon Dioxide 18 L Creatinine BUN/Creatinine Ratio Glucose Plasma Lactic Acid Tyrese Calcium 7.3 L Total Bilirubin Conjugated Bilirubin AST 329 H ALT 92 H Troponin I 0.265 H* C-Reactive Protein Total Protein 4.5 L Albumin 2.1 L Albumin/Globulin Ratio Amylase 244 H Lipase 2052 H Procalcitonin Urine Appearance Urine Protein Urine Ketones Urine Blood Urine Bilirubin Ur Leukocyte Esterase Urine RBC Urine WBC Ur Squamous Epith Cells Amorphous Sediment Urine Bacteria Hyaline Casts Urine Mucus Rheumatoid Factor Assessment and Plan Assessment: * Cardiac arrest, probable anoxic encephalopathy. * Myoclonic seizures, probably due to cardiac arrest/anoxic encephalopathy. * Ventilator-dependent respiratory failure due to above. * Extensive cellulitis and bullous lesions involving extremities, possible sepsis * Choledocholithiasis and acute cholecystitis, status post ERCP * Elevated LFTs, * History of nicotine dependence * Acute pancreatitis Plan: * Patient underwent EEG, which was abnormal due to background slowing with some intermittent bursts suppressed pattern. This is suggestive of generalized cerebral dysfunction as can be seen with history of cardiac arrest or from severe metabolic encephalopathy. Sharp spikes are seen in the left hemispheric region which at times becomes generalized. These at times appears artifactual from myogenic activity, but other times appears to have some epileptiform quality as well. Clinical correlation and follow-up EEG are recommended. Patient has been started on Keppra 750 mg IV twice a day. * Prognosis appears very guarded due to the possible downtime, EEG findings and other comorbid conditions. * Neurology will follow.
--- NOTE | 2021-02-06 23:19 | PN ---
PROGRESS NOTE DATE OF SERVICE: 02/06/2021 REASON FOR FOLLOWUP: 1. Bilateral lower extremity and wrist area blisters with a question of cellulitis. 2. Choledocholithiasis. INTERVAL HISTORY: The patient is currently afebrile. The patient is hemodynamically stable, not on pressor support. FiO2 is currently stable at 40%. The patient remains unresponsive on the vent. No significant purulent secretion through the ET or any diarrhea reported by the nursing staff. PHYSICAL EXAMINATION: Blood pressure 109/60 with a pulse of 101, temperature 98. She is 99% on 40% FiO2. General description is an elderly female lying in bed in no distress. RESPIRATORY SYSTEM: Unlabored breathing with decreased breath sounds at the base. No wheeze. HEART: S1, S2. Regular rate and rhythm. ABDOMEN: Soft. No tenderness. LABS: Hemoglobin 11.1, white count 7.3, BUN of 17, creatinine 0.88. DIAGNOSTIC IMPRESSION AND PLAN: 1. Patient with bilateral lower extremity and wrist area blisters with ulceration in lower extremities, some cellulitis. Cultures are positive for MRSA. Patient is covered with vancomycin. 2. Patient with choledocholithiasis, status post ERCP, stent placement, possible , covered with cefepime. Continue with supportive care. MMODL / IJN: [id number] /
[2021-02-07 05:24] LABS: ABG HCO3 21 mmol/L (21-25); ABG Oxygen Saturation 99.4 % (94-97); ABG PCO2 33 mmHg (35-45); ABG PO2 108 mmHg (83-108); ABG TCO2 22 mmol/L (19-24); Allen Test Performed? Yes
[2021-02-07] MEDS ORDERED: Potassium Replacement Protocol 1 EACH MISC MISCELLANE PRN (05:38)
[2021-02-07] MEDS ORDERED: POTASSIUM BICARBONATE/CIT AC 20 MEQ TABLET.EFF NG-TUBE SCH (06:00)
[2021-02-07 06:10] LABS: Albumin 2.6 g/dL (3.5-5.0); Calcium 7.9 mg/dL (8.4-10.2); Total Bilirubin 1.4 mg/dL (0.2-1.3); Total Protein 5.5 g/dL (6.3-8.2)
--- NOTE | 2021-02-07 07:09 | XR ---
EXAMINATION TYPE: XR chest 1V portable DATE OF EXAM: 02/07/2021 COMPARISON: 02/06/2021 HISTORY: Tube placement TECHNIQUE: Single frontal view of the chest is obtained. FINDINGS: Limited inspiration with bibasilar consolidation and small effusion. Heart size stable. ET tube low in position approximately 1 cm above silvina. NG tube stable. No sizable pneumothorax. Addit ional wires and possible catheter overlying the abdomen. IMPRESSION: 1. Bilateral infiltrate and small effusion stable. 2. ET tube somewhat low in position 1 cm above the silvina. 3. Right-sided PICC line appears low in position could be in the region of the atrial ventricular joselo ction.
[2021-02-07 07:52] LABS: Glucose,Whole Blood 100 mg/dL (75-99)
[2021-02-07] MEDS: CEFEPIME 1 GM in SODIUM CHLORIDE 0.9% 50 ML IVPB SCH (08:23)
[2021-02-07] MEDS: CHLORHEXIDINE GLUCONATE 15 ML CUP MUCOUS MEM SCH (08:23)
[2021-02-07] MEDS: levETIRAcetam IV 750 MG in SODIUM CHLORIDE 0.9% 100 ML IVPB SCH (08:23)
[2021-02-07] MEDS: ENOXAPARIN 40 MG/0.4 ML SYRINGE SQ SCH (08:24)
[2021-02-07] MEDS: PANTOPRAZOLE 40 MG/10 ML VIAL IV SCH (08:24)
[2021-02-07] MEDS: SODIUM CHLORIDE 0.9% 1,000 ML IV SCH ×2 (08:24→21:21)
[2021-02-07 08:56] LABS: Albumin 2.2 g/dL (3.5-5.0); Calcium 7.5 mg/dL (8.4-10.2); Potassium 3.2 mmol/L (3.5-5.1); Total Protein 4.8 g/dL (6.3-8.2)
[2021-02-07] MEDS ORDERED: VANCOMYCIN TROUGH DUE 1 EACH MISC MISCELLANE ONE (10:00)
[2021-02-07 10:40] VITALS: BMI 35.0
--- NOTE | 2021-02-07 11:44 | P.PN ---
Subjective Progress Note Date: 02/07/21 Principal diagnosis: Choledocholithiasis Patient was seen and examined in the ICU. She is currently intubated and sedated, nonresponsive. She is status postop day #2 for ERCP with stone extraction and biliary stent placement. No acute changes through the night. Neurology is on consult. Patient had an abnormal EEG. Objective - Vital Signs Vital signs: Vital Signs Temp 100.2 F H 02/07/21 08:00 Pulse 110 H 02/07/21 09:00 Resp 21 02/07/21 09:00 BP 110/66 02/07/21 09:00 Pulse Ox 95 02/07/21 09:00 Intake & Output 02/06/21 02/07/21 02/07/21 18:59 06:59 18:59 Intake Total 2176.572 1200 140.644 Output Total 970 835 40 Balance 1206.572 365 100.644 Weight 65.98 kg Intake: IV 2100 1200 100 Sodium Chloride 0.9% 1, 1100 1200 100 000 ml @ 100 mls/hr IV . Q10H [facility] Rx#:[id number] Sodium Chloride 0.9% 1, 1000 000 ml @ 999 mls/hr IV . Q1H1M [facility] Rx#:[id number] Intake, IV Titration 76.572 40.644 Amount propofoL 1,000 mg In 76.572 40.644 Empty Bag 1 bag @ Titrate IV .Q0M [facility] Rx#: [id number] Output: Urine 970 835 40 Other: Voiding Method Indwelling Catheter Indwelling Catheter Indwelling Catheter ABP, PAP, CO, CI - Last Documented Arterial Blood Pressure 137/60 - Exam General appearance: The patient is intubated and sedated on mechanical ventilation. HET: Head is normocephalic and atraumatic. Conjunctiva pink. Sclera anicteric. Neck: Supple without lymphadenopathy. Abdomen: Soft, nondistended with bowel sounds. No guarding or rigidity. Extremities: Normal skin color and turgor. No pedal edema Skin: No rashes, no jaundice Neurological: Sedated and intubated. Nonresponsive. - Labs CBC & Chem 7: 02/06/21 06:45 02/07/21 06:00 Labs: Abnormal Lab Results - Last 24 Hours (Table) 02/05/21 02/07/21 02/07/21 Range/Units 17:55 05:20 05:45 ABG pCO2 33 L (35-45) mmHg ABG O2 Saturation 99.4 H (94-97) % Potassium (3.5-5.1) mmol/L Chloride 111 H (98-107) mmol/L Carbon Dioxide 18 L (22-30) mmol/L BUN 20 H (7-17) mg/dL Creatinine (0.52-1.04) mg/dL Glucose 70 L (74-99) mg/dL POC Glucose (mg/dL) (75-99) mg/dL Calcium 7.9 L (8.4-10.2) mg/dL Total Bilirubin 1.4 H (0.2-1.3) mg/dL AST 253 H (14-36) U/L ALT 82 H (4-34) U/L Alkaline Phosphatase 35 L (38-126) U/L Total Protein 5.5 L (6.3-8.2) g/dL Albumin 2.6 L (3.5-5.0) g/dL Amylase 342 H* (30-110) U/L Lipase 1240 H (23-300) U/L Urine Blood Small H (Negative) Urine Bacteria Rare H (None) /hpf Hyaline Casts 3 H (0-2) /lpf Urine Mucus Rare H (None) /hpf 02/07/21 02/07/21 Range/Units 06:00 07:50 ABG pCO2 (35-45) mmHg ABG O2 Saturation (94-97) % Potassium 3.2 L (3.5-5.1) mmol/L Chloride 115 H (98-107) mmol/L Carbon Dioxide 20 L (22-30) mmol/L BUN 19 H (7-17) mg/dL Creatinine 1.05 H (0.52-1.04) mg/dL Glucose 108 H (74-99) mg/dL POC Glucose (mg/dL) 100 H (75-99) mg/dL Calcium 7.5 L (8.4-10.2) mg/dL Total Bilirubin (0.2-1.3) mg/dL AST 216 H (14-36) U/L ALT 83 H (4-34) U/L Alkaline Phosphatase (38-126) U/L Total Protein 4.8 L (6.3-8.2) g/dL Albumin 2.2 L (3.5-5.0) g/dL Amylase (30-110) U/L Lipase (23-300) U/L Urine Blood (Negative) Urine Bacteria (None) /hpf Hyaline Casts (0-2) /lpf Urine Mucus (None) /hpf Microbiology - Last 24 Hours (Table) 02/06/21 17:59 Gram Stain - Preliminary Foot - Left Wound Culture - Preliminary 02/06/21 17:59 Anaerobic Culture - Preliminary Foot - Left 02/02/21 19:15 Blood Culture - Preliminary Blood No Growth after 96 hours 02/03/21 19:15 Gram Stain - Final Foot - Left Wound Culture - Final Methicillin resist S. aureus Assessment and Plan (1) Choledocholithiasis Narrative/Plan: 65-year-old female with multiple complaints on presentation including rash, abdominal pain and nausea and vomiting. Patient found to have elevation in her total bilirubin of 1.6 on presentation with alkaline phosphatase 44, AST 159 and ALT 55. Imaging performed in evaluation was significant for cholecystitis and gallbladder neck stone as well as evidence of a distal CBD stone on computed tomography scan of the abdomen. Currently on antibiotic therapy. She denies any history of problems with cholelithiasis in the past. The patient is status postop day #2 for ERCP with stone extraction and biliary stent placement. Liver enzymes are trending down. Today's amylase 342, lipase 1240. Current Visit: Yes Status: Acute Code(s): K80.50 - CALCULUS OF BILE DUCT W/O CHOLANGITIS OR CHOLECYST W/O OBST SNOMED Code(s): 079678013 (2) Cholecystitis Current Visit: Yes Status: Acute Code(s): K81.9 - CHOLECYSTITIS, UNSPECIFIED SNOMED Code(s): 10703358 (3) Elevated LFTs Narrative/Plan: Liver enzymes continued to trend down. 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 Houser I agree with the dictator's note, documented as a scribe by Tangela Lynn.
--- NOTE | 2021-02-07 13:25 | P.PN ---
Subjective Progress Note Date: 02/07/21 This patient with history of gallstones, status post ERCP and subsequent cardiopulmonary arrest, remains in the intensive care unit. Patient's neurological status hasn't changed. Heparin this is having some seizure activity on EEG. She is being treated with Keppra. Patient's eyes are deviated. Patient is not responding to painful stimuli. From Cardec standpoint patient remains in sinus rhythm. Vital signs are stable. Urinary output is improved. Her potassium is low which is being corrected. No arrhythmias are noted. Echocardiogram showed preserved LV function with evidence of mitral regurgitation. We'll continue current management. From Cardec standpoint. Neurology is following, Patient neurological status. 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 Q10H [facility], [facility]–1983 Rx#:[id number] Sodium Chloride 0.9% 1, 1000 000 ml @ 999 mls/hr IV . Q1H1M ONE Rx#:[id number] Intake, IV Titration 76.572 40.644 Amount propofoL 1,000 mg In 76.572 40.644 Empty Bag 1 bag @ Titrate IV .Q0M [facility], [facility]1983 Rx#: [id number] Output: Urine 970 835 40 Other: Voiding Method Indwelling Catheter Indwelling Catheter Indwelling Catheter ABP, PAP, CO, CI - Last Documented Arterial Blood Pressure 137/60 - Exam GENERAL EXAM: Patient is intubated. HEENT: Normocephalic. . NECK: No masses, no nuchal rigidity. CHEST: No chest wall deformity. LUNGS: Diminished air exchange HEART: S1 and S2 normal ABDOMEN: Soft SKIN: No rashes CENTRAL NERVOUS SYSTEM: Per neurology EXTREMITIES: No cyanosis, clubbing or edema. - Labs CBC & Chem 7: 02/06/21 06:45 02/07/21 06:00 Labs: Abnormal Lab Results - Last 24 Hours (Table) 02/05/21 02/07/21 02/07/21 Range/Units 17:55 05:20 05:45 ABG pCO2 33 L (35-45) mmHg ABG O2 Saturation 99.4 H (94-97) % Potassium (3.5-5.1) mmol/L Chloride 111 H (98-107) mmol/L Carbon Dioxide 18 L (22-30) mmol/L BUN 20 H (7-17) mg/dL Creatinine (0.52-1.04) mg/dL Glucose 70 L (74-99) mg/dL POC Glucose (mg/dL) (75-99) mg/dL Calcium 7.9 L (8.4-10.2) mg/dL Total Bilirubin 1.4 H (0.2-1.3) mg/dL AST 253 H (14-36) U/L ALT 82 H (4-34) U/L Alkaline Phosphatase 35 L (38-126) U/L Total Protein 5.5 L (6.3-8.2) g/dL Albumin 2.6 L (3.5-5.0) g/dL Amylase 342 H* (30-110) U/L Lipase 1240 H (23-300) U/L Urine Blood Small H (Negative) Urine Bacteria Rare H (None) /hpf Hyaline Casts 3 H (0-2) /lpf Urine Mucus Rare H (None) /hpf 02/07/21 02/07/21 Range/Units 06:00 07:50 ABG pCO2 (35-45) mmHg ABG O2 Saturation (94-97) % Potassium 3.2 L (3.5-5.1) mmol/L Chloride 115 H (98-107) mmol/L Carbon Dioxide 20 L (22-30) mmol/L BUN 19 H (7-17) mg/dL Creatinine 1.05 H (0.52-1.04) mg/dL Glucose 108 H (74-99) mg/dL POC Glucose (mg/dL) 100 H (75-99) mg/dL Calcium 7.5 L (8.4-10.2) mg/dL Total Bilirubin (0.2-1.3) mg/dL AST 216 H (14-36) U/L ALT 83 H (4-34) U/L Alkaline Phosphatase (38-126) U/L Total Protein 4.8 L (6.3-8.2) g/dL Albumin 2.2 L (3.5-5.0) g/dL Amylase (30-110) U/L Lipase (23-300) U/L Urine Blood (Negative) Urine Bacteria (None) /hpf Hyaline Casts (0-2) /lpf Urine Mucus (None) /hpf Microbiology - Last 24 Hours (Table) 02/06/21 17:59 Gram Stain - Preliminary Foot - Left Wound Culture - Preliminary 02/06/21 17:59 Anaerobic Culture - Preliminary Foot - Left 02/02/21 19:15 Blood Culture - Preliminary Blood No Growth after 96 hours 02/03/21 19:15 Gram Stain - Final Foot - Left Wound Culture - Final Methicillin resist S. aureus Assessment and Plan (1) Cardiopulmonary arrest Current Visit: Yes Status: Acute Code(s): I46.9 - CARDIAC ARREST, CAUSE UNSPECIFIED SNOMED Code(s): 539031628 (2) Cholecystitis Current Visit: Yes Status: Acute Code(s): K81.9 - CHOLECYSTITIS, UNSPECIFIED SNOMED Code(s): 47359566 (3) Choledocholithiasis Current Visit: Yes Status: Acute Code(s): K80.50 - CALCULUS OF BILE DUCT W/O CHOLANGITIS OR CHOLECYST W/O OBST SNOMED Code(s): 971659296 (4) Elevated LFTs Current Visit: Yes Status: Acute Code(s): R79.89 - OTHER SPECIFIED ABNORMAL FINDINGS OF BLOOD CHEMISTRY SNOMED Code(s): 060274861 (5) History of coronary artery disease Current Visit: Yes Status: Acute Code(s): Z86.79 - PERSONAL HISTORY OF OTHER DISEASES OF THE CIRCULATORY SYSTEM SNOMED Code(s): 039099059 (6) Moderate to severe mitral regurgitation Current Visit: Yes Status: Acute Code(s): I34.0 - NONRHEUMATIC MITRAL (VALVE) INSUFFICIENCY SNOMED Code(s): 01033533 Plan: Patient's neurological status appears to be poor without any significant improvement. Hemodynamically stable. No cardiac interventions. We'll follow as needed
--- NOTE | 2021-02-07 13:44 | P.PN ---
Subjective Progress Note Date: 02/07/21 Principal diagnosis: Cardiac arrest This is a 65-year-old female with history of coronary artery disease, previous MS, presented to the hospital on 02/02/2021, patient presented with multiple complaints including rash involving her hands, feet, and there was basically excoriation of the skin and sloughing of the outer layer of the skin in her hands, and in her feet around the ankles mostly in the dorsal aspect of both ankles. Patient was also complaining of intermittent episodes nausea vomiting abdominal pain. And his symptoms are at least of one week duration. This all s tarted as redness in her hands and her ankles, looked initially like sunburn, and went on to blister and slough off. CT of the abdomen was performed that it showed choledocholithiasis and cholecystitis. There was also slight elevation of her transaminases. Patient was admitted and seen by many consultants over the last 3 days including surgery/Dr. Grey gastroenterology/, and she was seen by internal medicine. She was also seen by infectious disease on consultation. Placed empirically on antibiotics in the form of Unasyn and vancomycin. Today, the patient underwent ERCP , sphincterotomy, balloon sweep of large CBD stone and placement of the plastic double-pigtail stent for r etained stone. Patient was transferred to her room without any major events. While in her room, the patient was complaining of neck pain, and she was given a dose of Dilaudid 0.5 mg. 20 minutes later, noticed return to the room and the patient was unresponsive and pulseless. Patient was coded as per ACLS protocol. Received 1 dose of epinephrine, 1 dose of bicarb, and 1 dose of Narcan. Her in itial rhythm was asystole 5 minutes later, there was return of spontaneous circulation. And blood pressure was noted to be 140/80. During the code, patient was intubated by anesthesia and her 12-lead EKG showed sinus tachycardia with frequent PACs. Chest x-ray showed adequate placement of the endotracheal tube and orogastric tube, and showed what seems to be a picture of pulmonary edema. Patient was transferred to the ICU, and I was asked to see her on consultation. Patient was on mechanical ventilation, ventilator settings were adjusted accordingly based on the ABG assist control rate of 20, tidal volume of 400, FiO2 of 100% and was later decreased to 50% and PEEP at 5. ABG showed a pO2 of 396 pCO2 of 34 pH of 7.35, this was on 100%, and patient was placed on propofol as she was not synchronous with mechanical ventilation. Right radial arterial line was placed. Patient was noted to have pinpoint pupils, was not responsive to any stimuli. Hence I recommended CT of the brain without contrast. I also recommended cardiac consultation. Continue empiric antibiotics. And she will likely need neurological evaluation to determine if the patient developed anoxic brain injury. Prognosis at this point is extremely guarded. Patient was reevaluated today on 02/06/2021, remains intubated and mechanically ventilated. Ventilator settings are assist control rate 20 volume is 400 FiO2 is 50% and PEEP of 5. ABG showed a pO2 of 173 pCO2 of 30 pH of 7.41. Hence FiO2 was decreased to 40%. Patient remains on propofol at 40 mcg/kg/m, he is on IV fluid at 100 mL/h, not requiring any pressors. Today we attempted to hold sedation and assessment of status off propofol, however the patient became extremely asynchronous with the ventilator, and she was noted by the nurse to have seizure-like activity. Had similar seizure-like activities last night, responded to Ativan. Hence Ativan was given this morning and she was placed back on propofol. Urine output is marginal, patient was given more fluid boluses but no improvement with a urine output, hence we recommended Lasix c hallenge dose. 40 mg IV push. Patient is not responding to any painful stimuli. Not arousable. Seems to be quite asynchronous with the vent, bucking the ventilator, and having intermittent gagging and coughing on the endotracheal tube. CBC is relatively normal. Electrolytes are relatively normal except for low potassium of 3.4 and low bicarb of 18. Troponin is trending down, from 0.487 initially today is 0.265. Lipase is elevated at 2051, amylase is also elevated at 244 I believe this is most likely acute pancreatitis induced by her ERCP. Patient was reevaluated today on 02/07/2021, remains in the ICU, on mechanical ventilation, her assist-control rate is 20, volume is 400 FiO2 40% PEEP of 5. ABG showed a pO2 of 108 pCO2 of 33 pH of 7.40. Hence no changes were made in her ventilator settings. Chest x-ray showed bibasilar atelectasis and small effusions, endotracheal tube was noted to be in the silvina, and this was pulled out about 3 cm. EEG today showed background slowing consistent with cerebral dysfunction and it also showed sharp spikes in the left hemispheric region, possibly epileptiform quality. Patient remains on Keppra. Basic metabolic profile is relatively normal renal profile is normal liver enzymes were slightly elevated. Amylase is 342 and lipase is 1240. Patient remains unresponsive to any stimuli, and when she went off propofol, patient was noted to be gagging and choking on the endotracheal tube, was bucking the ventilator, and became asynchronous, not following any instructions whatsoever. Patient became tachycardic and tachypneic. Hence had to be placed back on propofol. Objective - Vital Signs Vital signs: Vital Signs Temp 100.2 F H 02/07/21 08:00 Pulse 110 H 02/07/21 09:00 Resp 21 02/07/21 09:00 BP 110/66 02/07/21 09:00 Pulse Ox 95 02/07/21 09:00 Intake & Output 02/06/21 02/07/21 02/07/21 18:59 06:59 18:59 Intake Total 2176.572 1200 140.644 Output Total 970 835 40 Balance 1206.572 365 100.644 Weight 65.98 kg 65.98 kg Intake: IV 2100 1200 100 Sodium Chloride 0.9% 1, 1100 1200 100 000 ml @ 100 mls/hr IV . Q10H [facility] Rx#:[id number] Sodium Chloride 0.9% 1, 1000 000 ml @ 999 mls/hr IV . Q1H1M ONE Rx#:[id number] Intake, IV Titration 76.572 40.644 Amount propofoL 1,000 mg In 76.572 40.644 Empty Bag 1 bag @ Titrate IV .Q0M [facility] Rx#: [id number] Output: Urine 970 835 40 Other: Voiding Method Indwelling Catheter Indwelling Catheter Indwelling Catheter ABP, PAP, CO, CI - Last Documented Arterial Blood Pressure 137/60 - Exam GENERAL: Revealed 65-year-old female intubated mechanically ventilated unre sponsive to any stimuli, continues to have deviation of eyes upwards HEENT: Dry mucous membranes, endotracheal tube and orogastric tube are intact. CARDIOVASCULAR: Tachycardic, no S3 gallop, 2/6 systolic murmur thought the precordium. PULMONARY: Symmetrical chest expansion, minimal fine crackles at the bases, no rhonchi and no wheezes. ABDOMEN: Slightly distended, nontender, no megaly, no rebound, no guarding, patient is unresponsive to any painful stimuli. MUSCULOSKELETAL: No deformities noted in the joints. EXTREMITIES: No clubbing edema or cyanosis. However multiple areas of bruising noted in the forearms, there is also sloughing of the skin and bullous lesions involving both hands especially the left hand and the dorsal aspect of both ankles. NEUROLOGICAL: Unresponsive to any painful stimuli, noted off sedation to be asynchronous with the ventilator, and questionable seizure activity noted by the nurse taking care of the patient. Spondylitic to Ativan. SKIN: bullous lesions and skin breakdown noted in multiple areas including hands specially the left hand, and involving the dorsal aspect of both ankles bilaterally. - Labs CBC & Chem 7: 02/06/21 06:45 02/07/21 06:00 Labs: Abnormal Lab Results - Last 24 Hours (Table) 02/05/21 02/07/21 02/07/21 Range/Units 17:55 05:20 05:45 ABG pCO2 33 L (35-45) mmHg ABG O2 Saturation 99.4 H (94-97) % Potassium (3.5-5.1) mmol/L Chloride 111 H (98-107) mmol/L Carbon Dioxide 18 L (22-30) mmol/L BUN 20 H (7-17) mg/dL Creatinine (0.52-1.04) mg/dL Glucose 70 L (74-99) mg/dL POC Glucose (mg/dL) (75-99) mg/dL Calcium 7.9 L (8.4-10.2) mg/dL Total Bilirubin 1.4 H (0.2-1.3) mg/dL AST 253 H (14-36) U/L ALT 82 H (4-34) U/L Alkaline Phosphatase 35 L (38-126) U/L Total Protein 5.5 L (6.3-8.2) g/dL Albumin 2.6 L (3.5-5.0) g/dL Amylase 342 H* (30-110) U/L Lipase 1240 H (23-300) U/L Urine Blood Small H (Negative) Urine Bacteria Rare H (None) /hpf Hyaline Casts 3 H (0-2) /lpf Urine Mucus Rare H (None) /hpf 02/07/21 02/07/21 Range/Units 06:00 07:50 ABG pCO2 (35-45) mmHg ABG O2 Saturation (94-97) % Potassium 3.2 L (3.5-5.1) mmol/L Chloride 115 H (98-107) mmol/L Carbon Dioxide 20 L (22-30) mmol/L BUN 19 H (7-17) mg/dL Creatinine 1.05 H (0.52-1.04) mg/dL Glucose 108 H (74-99) mg/dL POC Glucose (mg/dL) 100 H (75-99) mg/dL Calcium 7.5 L (8.4-10.2) mg/dL Total Bilirubin (0.2-1.3) mg/dL AST 216 H (14-36) U/L ALT 83 H (4-34) U/L Alkaline Phosphatase (38-126) U/L Total Protein 4.8 L (6.3-8.2) g/dL Albumin 2.2 L (3.5-5.0) g/dL Amylase (30-110) U/L Lipase (23-300) U/L Urine Blood (Negative) Urine Bacteria (None) /hpf Hyaline Casts (0-2) /lpf Urine Mucus (None) /hpf Microbiology - Last 24 Hours (Table) 02/06/21 17:59 Gram Stain - Preliminary Foot - Left Wound Culture - Preliminary 02/06/21 17:59 Anaerobic Culture - Preliminary Foot - Left 02/02/21 19:15 Blood Culture - Preliminary Blood No Growth after 96 hours 02/03/21 19:15 Gram Stain - Final Foot - Left Wound Culture - Final Methicillin resist S. aureus Assessment and Plan Assessment: Impression: Cardiac arrest, exact etiology is not clear, required CPR for at least 5 minutes. Acute hypoxic respiratory failure secondary to cardiac arrest requiring intubation and mechanical ventilation. Extensive cellulitis and bullous lesions involving extremities, possible sepsis Choledocholithiasis and acute cholecystitis, status post ERCP Elevated liver enzymes secondary to above. History of depression and anxiety. History of nicotine use and tobacco dependence syndrome. Suspect anoxic brain injury secondary to cardiac arrest. Acute pancreatitis, possibly induced by ERCP, expected. Although this could a lso be related to her underlying choledocholithiasis. Possible new onset seizures, secondary to anoxic brain injury. Elevated d-dimer, however the patient had negative venous Doppler of the lower extremities. And her ABG does not truly reflect a picture of acute pulmonary embolism. Hence we'll try to avoid heparin for now but the patient will continue on DVT prophylaxis. Abnormal EEG suggestive of slowing and epileptiform focus. Recommendation: Continue ventilatory support. Discussed CODE STATUS and overall pulmonary status and clinical status with the daughter today at bedside, the CODE STATUS was changed to DO NOT RESUSCITATE. And the daughter is considering comfort care measures in the next couple of days. Advice daughter to discuss her neurological status with the neurologist. Continue sedation. Continue ventilatory support. Continue antibiotics. As per infectious disease on the case. Consider enteral feeding on this patient. CT of the brain is nondiagnostic. We'll continue to follow. Prognosis is extremely poor and guarded. Critical care time is over 30 minutes. Changed CODE STATUS to DO NOT RESUSCITATE based on my conversation with her daughter. Time with Patient: Greater than 30
--- NOTE | 2021-02-07 14:45 | P.PN ---
Subjective Progress Note Date: 02/07/21 65-year-old pleasant female came in with the complaints of nausea vomiting abdominal pain abdominal pain is epigastric area moderate severity associated nausea vomiting. Patient is found to have choledocholithiasis with elevated liver enzymes. Patient will undergo ERCP today and will need cholecystectomy later. Patient also has multiple bullae or that ruptured in bilateral lower extremities with possible surrounding cellulitis. Infectious disease was consulted for wound care and possible need of antibiotics and dermatology was consulted as well with concerns of pemphigus patient has these bullae started about a week ago patient is presently on vancomycin and cefepime 02/05/2021 Patient is seen and evaluated and follow-up currently awaiting to undergo ERCP with GI today. Infectious disease following and patient is maintained on IV antibiotic therapy. Consult for dermatology was placed although pending at this time. Discussed with nursing staff about contacting [facility] Patient has multiple wounds and bullae present on bilateral hands and feet. Potassium is improved today at 4.1 with a sodium of 142 current creatinine is 0.4. Liver functions trending down. 02/06/2021 Patient is seen and evaluated and is currently being closely monitored in the ICU as patient was found to be unresponsive and pulseless and CODE BLUE was called. ACLS protocol performed with CPR and patient did receive a dose of appendectomy along with bicarb and Narcan as she was recently given a dose of Dilaudid prior to being found unresponsive. ROSC was obtained and patient was intubated by BUILDING REPAIR MAINTENANCE SUPERVISOR and placed on mechanical ventilation and is currently in the ICU with an extremely poor and guarded prognosis. Patient is status post ERCP with stone removal although retained stones with stent placement with GI. Patient is also maintained on IV antibiotics and infectious disease is following. Roof Bolter Operator along with cardiology and neurology consult placed. 02/07/2021 Patient is seen this morning currently continues to be on mechanical vent and sedated. Patient is being closely monitored in the ICU with multiple medical consultations following. Patient underwent sedation holiday per nursing staff although did not tolerate and is maintained on propofol. Patient is also being followed by neurology and underwent an EEG yesterday showing an abnormal reading due to background slowing with some intermittent bursts suppressed pattern suggestive of generalized cerebral dysfunction that can be seen with those with history of cardiac arrest or from severe metabolic encephalopathy along with some sharp spikes in the left hemispheric region which becomes generalized at times. Recommend continue EEGs as noted as there may be epileptiform activity noted. She was started on Keppra. Neurologic status has not improved since yesterday. Patient is maintained on IV cefepime along with vancomycin as cultures have shown MRSA. Infectious disease is following as well. Medical status was discussed with daughter at the bedside in detail and awaiting and appreciate further recommendations from neurology. Patient's prognosis remains extremely guarded and poor and will continue to monitor closely with the possibility of comfort care measures if no improvements noted. Daughter at the bedside wishing for no CODE STATUS. Review of systems: unable to obtain as patient is on a mechanical vent and sedated All medications have been reviewed Objective - Vital Signs Vital signs: Vital Signs Temp 100.2 F H 02/07/21 08:00 Pulse 110 H 02/07/21 09:00 Resp 21 02/07/21 09:00 BP 110/66 02/07/21 09:00 Pulse Ox 95 02/07/21 09:00 Intake & Output 02/06/21 02/07/21 02/07/21 18:59 06:59 18:59 Intake Total 2176.572 1200 140.644 Output Total 970 835 40 Balance 1206.572 365 100.644 Weight 65.98 kg Intake: IV 2100 1200 100 Sodium Chloride 0.9% 1, 1100 1200 100 000 ml @ 100 mls/hr IV . Q10H [facility] Rx#:[id number] Sodium Chloride 0.9% 1, 1000 000 ml @ 999 mls/hr IV . Q1H1M [facility] Rx#:[id number] Intake, IV Titration 76.572 40.644 Amount propofoL 1,000 mg In 76.572 40.644 Empty Bag 1 bag @ Titrate IV .Q0M [facility] Rx#: [id number] Output: Urine 970 835 40 Other: Voiding Method Indwelling Catheter Indwelling Catheter Indwelling Catheter ABP, PAP, CO, CI - Last Documented Arterial Blood Pressure 137/60 - Exam GENERAL: The patient is currently intubated and sedated status post cardiac arrest with ROSC obtained HEENT: Pupils are round and equally reacting to light. EOMI. No scleral icterus. No conjunctival pallor. Normocephalic, atraumatic. No pharyngeal erythema. No thyromegaly. CARDIOVASCULAR: S1 and S2 present. No murmurs, rubs, or gallops. PULMONARY: Diminished bilaterally with some scattered rhonchi noted. ABDOMEN: Soft, Nontender No palpable organomegaly. MUSCULOSKELETAL: No joint swelling or deformity. EXTREMITIES: No cyanosis, clubbing, or pedal edema. NEUROLOGICAL: Gross neurological examination did not reveal any focal deficits. SKIN: Multiple bullous lesions noted of upper extremities, bilateral hands, underneath breasts, lower extremities and bilateral feet with redness - Labs CBC & Chem 7: 02/06/21 06:45 02/07/21 06:00 Labs: Abnormal Lab Results - Last 24 Hours (Table) 02/05/21 02/07/21 02/07/21 Range/Units 17:55 05:20 05:45 ABG pCO2 33 L (35-45) mmHg ABG O2 Saturation 99.4 H (94-97) % Potassium (3.5-5.1) mmol/L Chloride 111 H (98-107) mmol/L Carbon Dioxide 18 L (22-30) mmol/L BUN 20 H (7-17) mg/dL Creatinine (0.52-1.04) mg/dL Glucose 70 L (74-99) mg/dL POC Glucose (mg/dL) (75-99) mg/dL Calcium 7.9 L (8.4-10.2) mg/dL Total Bilirubin 1.4 H (0.2-1.3) mg/dL AST 253 H (14-36) U/L ALT 82 H (4-34) U/L Alkaline Phosphatase 35 L (38-126) U/L Total Protein 5.5 L (6.3-8.2) g/dL Albumin 2.6 L (3.5-5.0) g/dL Amylase 342 H* (30-110) U/L Lipase 1240 H (23-300) U/L Urine Blood Small H (Negative) Urine Bacteria Rare H (None) /hpf Hyaline Casts 3 H (0-2) /lpf Urine Mucus Rare H (None) /hpf 02/07/21 02/07/21 Range/Units 06:00 07:50 ABG pCO2 (35-45) mmHg ABG O2 Saturation (94-97) % Potassium 3.2 L (3.5-5.1) mmol/L Chloride 115 H (98-107) mmol/L Carbon Dioxide 20 L (22-30) mmol/L BUN 19 H (7-17) mg/dL Creatinine 1.05 H (0.52-1.04) mg/dL Glucose 108 H (74-99) mg/dL POC Glucose (mg/dL) 100 H (75-99) mg/dL Calcium 7.5 L (8.4-10.2) mg/dL Total Bilirubin (0.2-1.3) mg/dL AST 216 H (14-36) U/L ALT 83 H (4-34) U/L Alkaline Phosphatase (38-126) U/L Total Protein 4.8 L (6.3-8.2) g/dL Albumin 2.2 L (3.5-5.0) g/dL Amylase (30-110) U/L Lipase (23-300) U/L Urine Blood (Negative) Urine Bacteria (None) /hpf Hyaline Casts (0-2) /lpf Urine Mucus (None) /hpf Microbiology - Last 24 Hours (Table) 02/06/21 17:59 Gram Stain - Preliminary Foot - Left Wound Culture - Preliminary 02/06/21 17:59 Anaerobic Culture - Preliminary Foot - Left 02/02/21 19:15 Blood Culture - Preliminary Blood No Growth after 96 hours 02/03/21 19:15 Gram Stain - Final Foot - Left Wound Culture - Final Methicillin resist S. aureus Assessment and Plan Assessment: -Choledocholithiasis: Patient recently underwent ERCP with stone removal and stent placement with GI and surgery was following for possible cholecystectomy -Status post cardiac arrest with ROSC obtained after ACLS and CPR protocol -Acute hypoxic respiratory failure secondary to above requiring mechanical ventilation and intubation -Elevated liver enzymes secondary to assessment #1 -Possible cellulitis will need wound care for ruptured bullae. Infectious disease following and patient is maintained on cefepime and vancomycin -Possibility of cholecystitis -Depression and anxiety -Nicotine use: Counseling was provided -Hypovolemic hyponatremia improved after IV hydration -DVT prophylaxis Lovenox Plan: Continue with current IV antibiotics. Continue to closely monitor in the ICU and multiple medical consultations following. EEG was noted as previously mentioned and neurology is following. Family's wishes for no CODE STATUS with the possibility of comfort care measures being discussed. Prognosis is extremely poor and guarded
[2021-02-07 14:47] VITALS: TEMP 100.1
[2021-02-07] MEDS: LACTATED RINGERS 1,000 ML IV SCH (14:47)
--- NOTE | 2021-02-07 16:22 | P.PN ---
Subjective Progress Note Date: 02/07/21 Patient not showing significant clinical improvement. Currently on propofol 50 g. When the sedation was discontinued from 9 AM to 9:17 AM, patient started breathing fast at 40, started biting on the ET tube, therefore placed back on high-dose propofol. No seizure-like activity noted for the time period that propofol was discontinued. Patient did not follow any commands. Patient did have a cough and gag reflexes. Objective - Vital Signs Vital signs: Vital Signs Temp 100.1 F H 02/07/21 12:00 Pulse 97 02/07/21 16:00 Resp 21 02/07/21 16:00 BP 98/61 02/07/21 16:00 Pulse Ox 98 02/07/21 16:00 Intake & Output 02/06/21 02/07/21 02/07/21 18:59 06:59 18:59 Intake Total 2176.572 1200 840.644 Output Total 970 835 285 Balance 1206.572 365 555.644 Weight 65.98 kg 65.98 kg Intake: IV 2100 1200 800 Sodium Chloride 0.9% 1, 1100 1200 800 000 ml @ 100 mls/hr IV . Q10H [facility] Rx#:[id number] Sodium Chloride 0.9% 1, 1000 000 ml @ 999 mls/hr IV . Q1H1M [facility] Rx#:[id number] Intake, IV Titration 76.572 40.644 Amount propofoL 1,000 mg In 76.572 40.644 Empty Bag 1 bag @ Titrate IV .Q0M [facility] Rx#: [id number] Output: Urine 970 835 285 Other: Voiding Method Indwelling Catheter Indwelling Catheter Indwelling Catheter ABP, PAP, CO, CI - Last Documented Arterial Blood Pressure 137/60 - Exam Patient at present is sedated. Patient does not open her eyes to calling her name. Pupils are round and reacting sluggishly, oculocephalics are absent, corneals are present. Patient does have a cough and gag. No further myoclonic jerks noted. Tone is equal. Patient has peripheral edema, evidence of cellulitis, bullous lesions in this wilkins. Reflexes are absent. Plantars flat. No seizure-like activity noted. - Labs CBC & Chem 7: 02/06/21 06:45 02/07/21 06:00 Labs: Abnormal Lab Results - Last 24 Hours (Table) 02/05/21 02/07/21 02/07/21 Range/Units 17:55 05:20 05:45 ABG pCO2 33 L (35-45) mmHg ABG O2 Saturation 99.4 H (94-97) % Potassium (3.5-5.1) mmol/L Chloride 111 H (98-107) mmol/L Carbon Dioxide 18 L (22-30) mmol/L BUN 20 H (7-17) mg/dL Creatinine (0.52-1.04) mg/dL Glucose 70 L (74-99) mg/dL POC Glucose (mg/dL) (75-99) mg/dL Calcium 7.9 L (8.4-10.2) mg/dL Total Bilirubin 1.4 H (0.2-1.3) mg/dL AST 253 H (14-36) U/L ALT 82 H (4-34) U/L Alkaline Phosphatase 35 L (38-126) U/L Total Protein 5.5 L (6.3-8.2) g/dL Albumin 2.6 L (3.5-5.0) g/dL Amylase 342 H* (30-110) U/L Lipase 1240 H (23-300) U/L Urine Blood Small H (Negative) Urine Bacteria Rare H (None) /hpf Hyaline Casts 3 H (0-2) /lpf Urine Mucus Rare H (None) /hpf 02/07/21 02/07/21 Range/Units 06:00 07:50 ABG pCO2 (35-45) mmHg ABG O2 Saturation (94-97) % Potassium 3.2 L (3.5-5.1) mmol/L Chloride 115 H (98-107) mmol/L Carbon Dioxide 20 L (22-30) mmol/L BUN 19 H (7-17) mg/dL Creatinine 1.05 H (0.52-1.04) mg/dL Glucose 108 H (74-99) mg/dL POC Glucose (mg/dL) 100 H (75-99) mg/dL Calcium 7.5 L (8.4-10.2) mg/dL Total Bilirubin (0.2-1.3) mg/dL AST 216 H (14-36) U/L ALT 83 H (4-34) U/L Alkaline Phosphatase (38-126) U/L Total Protein 4.8 L (6.3-8.2) g/dL Albumin 2.2 L (3.5-5.0) g/dL Amylase (30-110) U/L Lipase (23-300) U/L Urine Blood (Negative) Urine Bacteria (None) /hpf Hyaline Casts (0-2) /lpf Urine Mucus (None) /hpf Microbiology - Last 24 Hours (Table) 02/06/21 17:59 Gram Stain - Preliminary Foot - Left Wound Culture - Preliminary 02/06/21 17:59 Anaerobic Culture - Preliminary Foot - Left 02/02/21 19:15 Blood Culture - Preliminary Blood No Growth after 96 hours Assessment and Plan Assessment: * Cardiac arrest, probable anoxic encephalopathy. * Myoclonic seizures, probably due to cardiac arrest/anoxic encephalopathy. Myoclonic seizures now seems to have resolved. * Ventilator-dependent respiratory failure due to above. * Extensive cellulitis and bullous lesions involving extremities, possible sepsis * Choledocholithiasis and acute cholecystitis, status post ERCP * Elevated LFTs, * History of nicotine dependence * Acute pancreatitis Plan: * Patient not showing any definite signs of clinical improvement. No seizures have been observed. * EEG 02/06/2021 was abnormal due to background slowing with some intermittent bursts suppressed pattern. This is suggestive of generalized cerebral dysfunction as can be seen with history of cardiac arrest or from severe metabolic encephalopathy. Sharp spikes are seen in the left hemispheric region which at times becomes generalized. These at times appears artifactual from myogenic activity, but other times appears to have some epileptiform quality as well. Clinical correlation and follow-up EEG are recommended. Patient has been started on Keppra 750 mg IV twice a day. * Prognosis appears very guarded due to the possible downtime, EEG findings and other comorbid conditions. * Patient's family have decided to make her comfort care. * Discussed with nursing staff in detail. * Neurology will sign off. Please reconsult if any other concerns.
[2021-02-07] MEDS ORDERED: MORPHINE SULFATE 2 MG/ML SYRINGE IV PRN (16:47)
[2021-02-07] MEDS ORDERED: LORazepam 2 MG/ML INJ IV PRN (16:47)
[2021-02-07] MEDS: MORPHINE SULFATE 4 MG/ML SYRINGE IV PRN ×2 (17:28→21:22)
--- NOTE | 2021-02-07 18:25 | PN ---
PROGRESS NOTE DATE OF SERVICE: 02/07/2021 REASON FOR FOLLOWUP: 1. Bilateral lower extremity wounds and bilateral hand blisters with secondary cellulitis. 2. Choledocholithiasis. INTERVAL HISTORY: The patient is currently running a low-grade fever of 100.4 to 100.2. The patient is though. FiO2 is currently at 40%. No significant purulent secretion in the ET or any diarrhea or any other changes reported by the nursing staff. PHYSICAL EXAMINATION: Blood pressure 106/51, pulse 104, temperature 100.4. She is 98% on 40% FiO2. General description is an elderly female intubated on the vent. RESPIRATORY SYSTEM: Unlabored breathing with decreased breath sounds at the base. No wheeze. HEART: S1, S2. Regular rate and rhythm. ABDOMEN: Soft. No tenderness. LABS: Hemoglobin is 11.1, white count 7.3. BUN of 19, creatinine 1.05. Left foot culture with MRSA. DIAGNOSTIC IMPRESSION AND PLAN: 1. Patient with bilateral foot and bilateral wrist area blisters with secondary cellulitis with culture with MRSA. Patient is covered with vancomycin. 2. Patient with choledocholithiasis, status post ERCP and subsequent cardiac arrest and acute respiratory failure. Chest x-ray: bilateral infiltrate. Sputum culture will be requested. Patient is covered cefepime; to continue, and we will monitor clinical course closely. MMODL / IJN: [id number] /
[2021-02-07 18:32] VITALS: BP 103/58
--- NOTE | 2021-02-07 19:41 | P.PN ---
Progress Note - Text Progress Note Date: 02/07/21 Patient still doing poorly. LFT's are trending down. No surgery planned. If her condition changes and you would like me to reevaluate her, please feel free to contact me. Thanks
[2021-02-07] MEDS ORDERED: VANCOMYCIN 1,000 MG in SODIUM CHLORIDE 0.9% 250 ML IVPB SCH (21:00)
[2021-02-07 22:20] VITALS: PULSE 122; RESP 24
--- NOTE | 2021-02-08 10:24 | P.DS ---
Providers Date of admission: 02/02/21 20:32 Expected date of discharge: 02/07/21 Attending physician: Geovani Horton Consults: 02/02/21 20:31 Consult Physician Routine Consulting Provider: Apple Hatfield Consult Reason/Comments: Choledocholithiasis, cholecystitis Do you want consulting provider notified?: Yes Consult Physician Urgent Consulting Provider: Estefany Grey Consult Reason/Comments: Choledocholithiasis, cholecystitis Do you want consulting provider notified?: Already Contacted 02/03/21 16:21 Consult Physician Routine Consulting Provider: Soheila Michelle Consult Reason/Comments: Sepsis Do you want consulting provider notified?: Yes 02/03/21 16:33 Consult Physician Routine Consulting Provider: Mireille Yousif Consult Reason/Comments: pemphigus Do you want consulting provider notified?: Yes 02/05/21 16:29 Consult Physician Stat Consulting Provider: Prudencio Lowry Consult Reason/Comments: ICU management Do you want consulting provider notified?: Already Contacted 02/05/21 16:53 Consult Physician Routine Consulting Provider: Berna Neal Consult Reason/Comments: cardiac arrest Do you want consulting provider notified?: Yes 02/06/21 08:37 Consult Physician Routine Consulting Provider: Mau Medeiros Consult Reason/Comments: cardiac arrest, anoxic brain injury Do you want consulting provider notified?: Yes Primary care physician: Stated None Hospital Course: Final diagnosis -Choledocholithiasis -Status post cardiac arrest with ROSC obtained -Acute hypoxic respiratory failure secondary to above requiring mechanical ventilation and intubation -Elevated liver enzymes secondary to assessment #1 -Possible cellulitis -Possibility of cholecystitis -Depression and anxiety -Nicotine use: Counseling was provided -Hypovolemic hyponatremia -DVT prophylaxis Discharge disposition Patient has please refer to nursing documentation for time of . life skills educator states 2329 on 02/07/2021 at time of Preliminary cause of Ascending cholangitis Hospital course 65-year-old pleasant female came in with the complaints of nausea vomiting abdominal pain abdominal pain is epigastric area moderate severity associated nausea vomiting. Patient is found to have choledocholithiasis with elevated liver enzymes. Patient will undergo ERCP today and will need cholecystectomy later. Patient also has multiple bullae or that ruptured in bilateral lower extremities with possible surrounding cellulitis. Infectious disease was consulted for wound care and possible need of antibiotics and dermatology was consulted as well with concerns of pemphigus patient has these bullae started about a week ago patient is presently on vancomycin and cefepime 02/05/2021 Patient is seen and evaluated and follow-up currently awaiting to undergo ERCP with GI today. Infectious disease following and patient is maintained on IV antibiotic therapy. Consult for dermatology was placed although pending at this time. Discussed with nursing staff about contacting dermatology office and update on consultation. Patient has multiple wounds and bullae present on bilateral hands and feet. Potassium is improved today at 4.1 with a sodium of 142 current creatinine is 0.4. Liver functions trending down. 02/06/2021 Patient is seen and evaluated and is currently being closely monitored in the ICU as patient was found to be unresponsive and pulseless and CODE BLUE was called. ACLS protocol performed with CPR and patient did receive a dose of appendectomy along with bicarb and Narcan as she was recently given a dose of Dilaudid prior to being found unresponsive. ROSC was obtained and patient was intubated by WALLCOVERING HANGER and placed on mechanical ventilation and is currently in the ICU with an extremely poor and guarded prognosis. Patient is status post ERCP with stone removal although retained stones with stent placement with GI. Patient is also maintained on IV antibiotics and infectious disease is following. Residential Mortgage Manager along with cardiology and neurology consult placed. 02/07/2021 Patient is seen this morning currently continues to be on mechanical vent and sedated. Patient is being closely monitored in the ICU with multiple medical consultations following. Patient underwent sedation holiday per nursing staff although did not tolerate and is maintained on propofol. Patient is also being followed by neurology and underwent an EEG yesterday showing an abnormal reading due to background slowing with some intermittent bursts suppressed pattern suggestive of generalized cerebral dysfunction that can be seen with those with history of cardiac arrest or from severe metabolic encephalopathy along with some sharp spikes in the left hemispheric region which becomes generalized at times. Recommend continue EEGs as noted as there may be epileptiform activity noted. She was started on Keppra. Neurologic status has not improved since yesterday. Patient is maintained on IV cefepime along with vancomycin as cultures have shown MRSA. Infectious disease is following as well. Medical status was discussed with daughter at the bedside in detail and awaiting and appreciate further recommendations from neurology. Patient's prognosis remains extremely guarded and poor and will continue to monitor closely with the possibility of comfort care measures if no improvements noted. Daughter at the bedside wishing for no CODE STATUS. CODE STATUS has been addressed and his no code and family wishing for comfort measures. Comfort measure orders will be placed. Patient has please refer to nursing documentation for time of . Patient Condition at Discharge: Poor Plan - Discharge Summary New Discharge Prescriptions: No Action No Known Home Medications Discharge Medication List No Known Home Medications 02/02/21 [History] Follow up Appointment(s)/Referral(s): None,Stated [Primary Care Provider] - 1-2 days Discharge Disposition: - Preliminary Cause of Preliminary Cause of : Ascending cholangitis
--- NOTE | 2021-02-08 17:14 | CDI ---
Documentation Clarification Form Mortality Review Date: 02/08/2021 04:33:40 PM From: Selena Solis RN, CCDS Admit Date: 02/02/2021 08:32:00 PM Patient Name: Rachelle Maki Visit Number: [id number] Discharge Date: 02/07/2021 11:29:00 PM ATTENTION: The Clinical Documentation Specialists (CDI) and [facility] Coding Staff appreciate your assistance in clarifying documentation. Please respond to the clarification below the line at the bottom and electronically sign. The CDI & [facility] Coding staff will review the response and follow-up if needed. Please note: Queries are made part of the Legal Health Record. If you have any questions, please contact the author of this message via ITS. Dr. Bennie Tobar The patient presented with a rash and blistering to bilateral lower extremities, ascending cholangitis, and possible UTI. Additional clarification regarding the etiology/cause of the Sepsis requested as Sepsis has been documented by Consulting providers. History/Risk Factors: Tobacco abuse, [place] Clinical Indicators: 02/04 ID Consult: "Concern for possible sepsis and rash the patient has." 02/05-02/07 Pulmonary Consult and Progress notes: "Extensive cellulitis and bullous lesions involving extremities, possible sepsis Choledocholithiasis and acute cholecystitis, status post ERCP Elevated liver enzymes secondary to above." 02/06 Neurology Consult: Extensive cellulitis and bullous lesions involving extremities, possible sepsis." 02/02-02/07 WBC:7.4/7.3/6.2/5.1/7.3/6.2/5.1/7.3 02/02-02/07 Lactic acid: 4.5/2.3/1.3/1/1.3 02/03 Left foot culture: MRSA+ 02/02 Blood cultures: negative Urine Culture: negative 02/03 1812 Admission Vitals signs: 98.9, HR 116, RR 18, B/P 108/87, SPO2 98% RA Treatment: 02/03-02/07 Cefepime 1gm IVPB Q 12 hrs. 02/02 Rocephin 100mg IVP q 5min x 2 doses 02/02 Flagyl 500mg IVPB OT 02/02-02/07 IV Vanco PTD 02/02 0.9%NS IVF bolus 1.5L 02/06 0.9% NS IVF bolus 1L In your professional opinion, please clarify if these findings signify one of the following conditions: [ ] Sepsis POA [ ] Sepsis, Not POA [ ] Sepsis ruled out [ ] Severe Sepsis with organ failure [ ] Septic Shock [ ] Other, please specify [ ] Unable to determine SIRS Criteria: 2 or more of the following may indicate SIRS Temperature < 96.8F (36C) or > 101.0F (38.3C) Heart Rate > 90 bpm Respiratory Rate > 20 breaths/min or PaCO2 < 32 mmHg White Blood Cell Count > 12,000 or < 4,000 cells/mm3 or > 10% bands (Template Last Reviewed: December 2020) Reason for sepsis was already documented in the note which is ascending cholangitis and this query is not necessary MTDD
== END 2021-02-07 23:29 | disposition expired | DRG 871 ==
LOC: EC 18:10 → 4SSUR 20:32 → 5NMEDONC 02-03 15:04 → 2SICU 02-05 16:03
PROVIDERS: ADMIT Hospitalist; ATTEND Hospitalist
PROC: BF101ZZ Fluoroscopy of Bile Ducts using Low Osmolar Contrast (ICD-10-PCS; principal; 2021-02-05 07:30)
PROC: 0F798DZ Dilation of Common Bile Duct with Intraluminal Device, Via Natural or Artificial Opening Endoscopic (ICD-10-PCS; principal; 2021-02-05 07:30)
PROC: 5A12012 Performance of Cardiac Output, Single, Manual (ICD-10-PCS; 2021-02-05 07:30)
PROC: 5A1945Z Respiratory Ventilation, 24-96 Consecutive Hours (ICD-10-PCS; 2021-02-05 07:30)
PROC: 0BH17EZ Insertion of Endotracheal Airway into Trachea, Via Natural or Artificial Opening (ICD-10-PCS; 2021-02-05 07:30)
PROC: 4A133J1 Monitoring of Arterial Pulse, Peripheral, Percutaneous Approach (ICD-10-PCS; 2021-02-05 07:30)
PROC: 03HY32Z Insertion of Monitoring Device into Upper Artery, Percutaneous Approach (ICD-10-PCS; 2021-02-05 07:30)
PROC: 4A133B1 Monitoring of Arterial Pressure, Peripheral, Percutaneous Approach (ICD-10-PCS; 2021-02-05 07:30)
PROC: 0D9670Z Drainage of Stomach with Drainage Device, Via Natural or Artificial Opening (ICD-10-PCS; 2021-02-05 07:30)
DX: A41.9 Sepsis, unspecified organism (principal); J96.01 Acute respiratory failure with hypoxia; K85.90 Acute pancreatitis without necrosis or infection, unspecified; R40.20 Unspecified coma; K80.42 Calculus of bile duct with acute cholecystitis without obstruction; E87.1 Hypo-osmolality and hyponatremia; G93.1 Anoxic brain damage, not elsewhere classified; J81.1 Chronic pulmonary edema; J98.11 Atelectasis; L03.116 Cellulitis of left lower limb; L03.115 Cellulitis of right lower limb; L03.114 Cellulitis of left upper limb; L03.113 Cellulitis of right upper limb; L97.929 Non-pressure chronic ulcer of unspecified part of left lower leg with unspecified severity; L97.919 Non-pressure chronic ulcer of unspecified part of right lower leg with unspecified severity; N39.0 Urinary tract infection, site not specified; L10.9 Pemphigus, unspecified; I46.9 Cardiac arrest, cause unspecified; G25.3 Myoclonus; F10.10 Alcohol abuse, uncomplicated; E86.1 Hypovolemia; G93.89 Other specified disorders of brain; Z20.822 Contact with and (suspected) exposure to COVID-19; Z51.5 Encounter for palliative care; Z66 Do not resuscitate; B95.62 Methicillin resistant Staphylococcus aureus infection as the cause of diseases classified elsewhere; Z71.6 Tobacco abuse counseling; F17.210 Nicotine dependence, cigarettes, uncomplicated; F32.9 Major depressive disorder, single episode, unspecified; F41.9 Anxiety disorder, unspecified; I25.10 Atherosclerotic heart disease of native coronary artery without angina pectoris; I25.2 Old myocardial infarction; I34.0 Nonrheumatic mitral (valve) insufficiency; S80.821A Blister (nonthermal), right lower leg, initial encounter; I73.9 Peripheral vascular disease, unspecified; I49.1 Atrial premature depolarization; S90.821A Blister (nonthermal), right foot, initial encounter; S90.822A Blister (nonthermal), left foot, initial encounter; R23.8 Other skin changes; Z88.0 Allergy status to penicillin; R79.89 Other specified abnormal findings of blood chemistry; Z90.49 Acquired absence of other specified parts of digestive tract
CPT/HCPCS: 36415; 36600; 43262; 43264; 43274; 70450; 71045; 71046; 74176; 74330; 76705; 80053; 80202; 81001; 82150; 82248; 82805; 83605; 83690; 83735; 84100; 84145; 84484; 85025; 85027; 85379; 85610; 85652; 85730; 86038; 86140; 86255; 86431; 87040; 87070; 87075; 87077; 87086; 87186; 87205; 87635; 92950; 93005; 93306; 93970; 94002; 94003; 95816; 96365; 96366; 96367; 96375; 96376; 99285